=== PATIENT | female | born 1995 | race Caucasian/White ===

== ENCOUNTER 2018-01-07 16:10 | Emergency (ER) | payer MEDICAID, OTHER ==
[~2018-01-07] VITALS: Ht 165.1 cm; Wt 75.3 kg
[~2018-01-07 16:10] MED LIST: MEBE100T4 PO
--- OUTSIDE RECORDS SUMMARY | 2018-01-07 16:16 | XMS REPORT ---
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 54894609 Problem Allergic rhinitis, cause unspecified 477.9 Active 60628059 Problem Counseling on other sexually transmitted diseases V65.45 Active 956579111 Problem General counseling for prescription of oral contraceptives V25.01 Active 054601312549776 Problem examination or test, negative result V72.41 Active 642388682 Problem Moderate episode of recurrent major depressive disorder F33.1 Active 346318669 Problem Depression, reactive F32.9 Active 05643065 Problem Dysthymia F34.1 Active 14107706 Problem Panic attack F41.0 Active 882408695 Problem Anxiety F41.9 Active 69704898 Problem Post traumatic stress disorder (PTSD) F43.10 Active 41966861 ALLERGIES No Information ENCOUNTERS Encounter Location Date Diagnosis [place] [id number] [place] [address] Jul, Moderate episode of recurrent major depressive disorder F33.1 [facility] [id number] [place] [address] May, Moderate episode of recurrent major depressive disorder F33.1 [place] [address] [place] [address] Apr, Anxiety F41.9 ; Post traumatic stress disorder (PTSD) F43.10 ; Panic attack F41.0 ; Dysthymia F34.1 ; Night terrors F51.4 and Depression, reactive F32.9 [facility] [address] [facility] [id number] [address] Oct, [facility] [address], [place] [address] Oct, [facility] [address] [place] [address] Mar, [facility] [address] [address] Mar, [facility] [address] [address] Jan, [facility] [id number] [address] Jan, IMMUNIZATIONS No Known Immunizations SOCIAL HISTORY Never Assessed REASON FOR VISIT intake PLAN OF CARE Activity Details Follow Up Not rescheduled with me Reason:anxiety, depression, PTSD VITAL SIGNS MEDICATIONS No Known Medications RESULTS No Results PROCEDURES Procedure Date Ordered Result Body Site Psych diagnostic evaluation, new patient May 30, 2017 INSTRUCTIONS MEDICATIONS ADMINISTERED No Known Medications MEDICAL (GENERAL) HISTORY Type Description Date Medical History PTSD Medical History depression Medical History insomnia
--- OUTSIDE RECORDS SUMMARY | 2018-01-07 16:16 | XMS REPORT ---
Author Author EVETTE HORNE Organization Unknown Address [address] [address] Care Team Providers Care Fire Prevention Forester Name Role Phone EVETTE HORNE Unavailable Problems Problem SNOMED Onset Date Resolved Date Status Recurrent major depressive episodes, moderate 373085055 Active Posttraumatic stress disorder 96074263 Active Insomnia 614226591 Active Allergies, Adverse Reactions NA Care Plan Goal Instructions Child will be functioning well in all rangel. Further assessment by [facility] treatment team. Engage with treatment team to build rapport. Learn and practice coping skills to reduce symptoms and improve functioning. The following Services will be utilized 1 - 3 times until goal is reached: Child will be functioning well in all rangel. Further assessment by [facility] treatment team. Engage with treatment team to build rapport. Learn and practice coping skills to reduce symptoms and improve functioning. The following Services will be utilized 1 - 3 times until goal is reached: Improve and maintain functioning through medical psychiatric services. Initial Psychiatric Evaluation, Ongoing medication monitoring and management, Case Conference with multidisciplinary members of the [facility] as indicated, and/or Collaboration and coordination with outside medical providers as indicated by providing the following services: 80525 interactive complexity 79260 psychiatric diagnostic eval w/ meds 13196 30 min psychotherapy add-on 11048 45 [place] [address] 60 min psychotherapy add-on 77350 med injection 60845 New Patient E&M (level 1) 28540 New Patient E&M (level 2) 60468 New Patient E&M (level 3) 49791 New patient E&M (level 4) 04554 New Patient E&M (level 5) 91860 Established Patient E&M (level 1) 98516 Established Patient E&M (level 2) 69935 Established Patient E&M (level 3) 96797 Established Patient E& amp;M (level 4) 80745 Established Patient E&M (level 5) 9935x prolonged service code 85377 case conference w/o janis & aaron w/ 58903 case conference w/o janis lawson / H0038 Peer Support Individual H2017 Psychosocial Rehab Indiv Date Time Service Provider Location 05:00:00 pm INDIVIDUAL APPOINTMENT BRITTANY SANDOVAL [address] Medications Medication Code Dose,Form,Route,Freq Start Date End Date Rexulti - 1 MG ORAL Tablet 6425817 Take one (1) Tablet Daily Rexulti - 2 MG ORAL Tablet [id number] Take one (1) Tablet Daily Abilify - 5 MG ORAL Tablet 379263 Take one (1) Tablet At Bedtime Rexulti - 1 MG ORAL Tablet 8368347 Take two (2) Tablets Daily Rexulti - 2 MG ORAL Tablet 5468965 Take one (1) Tablet Daily Lab Results NA Encounters Date Time Service Code Provider 11:44:00 am EVETTE HORNE Family History Functional Status NA Immunizations NA Vital Signs Date Time BP Pulse Temp Height Weight BMI 05:56:00 pm 103 over 67 84 bpm 67 in 197 lbs 30.9 kg/m^2 Social History Date Smoking Status SNOMED Code Unknown If Ever Smoked [id number] Hospital Discharge Instructions NA Instructions * Not Applicable Procedures NA Purpose Electronic Copy
--- OUTSIDE RECORDS SUMMARY | 2018-01-07 16:16 | XMS REPORT ---
Author Author EVETTE SMALL Organization Unknown Address [address] [place] [address] Care Team Providers Care Ed Manager Name Role Phone EVETTE SMALL Unavailable SAMMY HUDSON Unavailable Problems Problem SNOMED Onset Date Resolved Date Status Recurrent major depressive episodes, moderate 300746887 Active Posttraumatic stress disorder 99425351 Active Insomnia 363271768 Active Review of medication 685920446 Active Body mass index 30+ - obesity 985696040 Active Allergies, Adverse Reactions NA Care Plan Date Time Service Provider Location 06:00:00 pm PSYCHOTHERAPY, 38-52 MINUTES SAMMY BECCA [address] 06:00:00 pm PSYCHOTHERAPY, 38-52 MINUTES SAMMY BECCA [address] 06:00:00 pm PSYCHOTHERAPY, 38-52 MINUTES SAMMY BECCA [address] 06:00:00 pm PSYCHOTHERAPY, 38-52 MINUTES SAMMY BECCA [address] 06:00:00 pm PSYCHOTHERAPY, 38-52 MINUTES SAMMY BECCA [address] 06:00:00 pm PSYCHOTHERAPY, 38-52 MINUTES SAMMY BECCA [address] 06:00:00 pm PSYCHOTHERAPY, 38-52 MINUTES SAMMY BECCA [address] 06:00:00 pm PSYCHOTHERAPY, 38-52 MINUTES SAMMY BECCA [address] 06:00:00 pm PSYCHOTHERAPY, 38-52 MINUTES SAMMY BECCA [address] 06:00:00 pm PSYCHOTHERAPY, 38-52 MINUTES SAMMY BECCA [address] 06:00:00 pm PSYCHOTHERAPY, 38-52 MINUTES SAMMY BECCA [address] 06:00:00 pm PSYCHOTHERAPY, 38-52 MINUTES SAMMY BECCA [address] 06:00:00 pm PSYCHOTHERAPY, 38-52 MINUTES SAMMY BECCA [address] 06:00:00 pm PSYCHOTHERAPY, 38-52 MINUTES SAMMY BECCA [address] 06:00:00 pm PSYCHOTHERAPY, 38-52 MINUTES SAMMY BECCA [address] 06:00:00 pm PSYCHOTHERAPY, 38-52 MINUTES SAMMY BECCA [address] 06:00:00 pm PSYCHOTHERAPY, 38-52 MINUTES SAMMY BECCA [address] 06:00:00 pm PSYCHOTHERAPY, 38-52 MINUTES SAMMY BECCA [address] 06:00:00 pm PSYCHOTHERAPY, 38-52 MINUTES SAMMY BECCA [address] 06:00:00 pm PSYCHOTHERAPY, 38-52 MINUTES SAMMY BECCA [address] 06:00:00 pm PSYCHOTHERAPY, 38-52 MINUTES SAMMY BECCA [address] 06:00:00 pm PSYCHOTHERAPY, 38-52 MINUTES SAMMY BECCA [address] 06:00:00 pm PSYCHOTHERAPY, 38-52 MINUTES SAMMY BECCA [address] 06:00:00 pm PSYCHOTHERAPY, 38-52 MINUTES SAMMY BECCA [address] 06:00:00 pm PSYCHOTHERAPY, 38-52 MINUTES SAMMY BECCA [address] 06:00:00 pm PSYCHOTHERAPY, 38-52 MINUTES SAMMY BECCA [address] 06:00:00 pm PSYCHOTHERAPY, 38-52 MINUTES SAMMY BECCA [address] 06:00:00 pm PSYCHOTHERAPY, 38-52 MINUTES SAMMY BECCA [address] 06:00:00 pm PSYCHOTHERAPY, 38-52 MINUTES SAMMY BECCA [address] 06:00:00 pm PSYCHOTHERAPY, 38-52 MINUTES SAMMY BECCA [address] 06:00:00 pm PSYCHOTHERAPY, 38-52 MINUTES SAMMY BECCA [address] 06:00:00 pm PSYCHOTHERAPY, 38-52 MINUTES SAMMY BECCA [address] 06:00:00 pm PSYCHOTHERAPY, 38-52 MINUTES SAMMY BECCA [address] 06:00:00 pm PSYCHOTHERAPY, 38-52 MINUTES SAMMY BECCA [address] 06:00:00 pm PSYCHOTHERAPY, 38-52 MINUTES SAMMY BECCA [address] 06:00:00 pm PSYCHOTHERAPY, 38-52 MINUTES SAMMY BECCA [address] 06:00:00 pm PSYCHOTHERAPY, 38-52 MINUTES SAMMY BECCA [address] 06:00:00 pm PSYCHOTHERAPY, 38-52 MINUTES SAMMY BECCA [address] 06:00:00 pm PSYCHOTHERAPY, 38-52 MINUTES SAMMY BECCA [address] 06:00:00 pm PSYCHOTHERAPY, 38-52 MINUTES SAMMY BECCA [address] 06:00:00 pm PSYCHOTHERAPY, 38-52 MINUTES SAMMY BECCA [address] 06:00:00 pm PSYCHOTHERAPY, 38-52 MINUTES SAMMY BECCA [address] 06:00:00 pm PSYCHOTHERAPY, 38-52 MINUTES SAMMY BECCA [address] 06:00:00 pm PSYCHOTHERAPY, 38-52 MINUTES SAMMY BECCA [address] 06:00:00 pm PSYCHOTHERAPY, 38-52 MINUTES SAMMY BECCA [address] 06:00:00 pm PSYCHOTHERAPY, 38-52 MINUTES SAMMY BECCA [address] 06:00:00 pm PSYCHOTHERAPY, 38-52 MINUTES SAMMY BECCA [address] 06:00:00 pm PSYCHOTHERAPY, 38-52 MINUTES SAMMY BECCA [address] 06:00:00 pm PSYCHOTHERAPY, 38-52 MINUTES SAMMY BECCA [address] 06:00:00 pm PSYCHOTHERAPY, 38-52 MINUTES SAMMY HUDSON [address] Medications Medication Code Dose,Form,Route,Freq Start Date End Date Rexulti - 1 MG ORAL Tablet [id number] Take one (1) Tablet Daily Rexulti - 2 MG ORAL Tablet 5281594 Take one (1) Tablet Daily Abilify - 5 MG ORAL Tablet [id number] Take one (1) Tablet At Bedtime Rexulti - 1 MG ORAL Tablet 6012861 Take two (2) Tablets Daily Rexulti - 2 MG ORAL Tablet [id number] Take one (1) Tablet Daily Citalopram - 20 MG ORAL Tablet [id number] Take one (1) Tablet Daily Citalopram - 20 MG ORAL Tablet [id number] Take one (1) Tablet Daily Citalopram - 20 MG ORAL Tablet [id number] Take one (1) Tablet Daily Citalopram - 20 MG ORAL Tablet [id number] Take one (1) Tablet Daily Lab Results NA Encounters Date Time Service Code Provider 11:44:00 am EVETTE HORNE % 11:03:00 am EVETTE HORNE % Family History Functional Status NA Immunizations NA Vital Signs Date Time BP Pulse Temp Height Weight BMI 04:15:00 pm 126 over 78 81 bpm 67 in 223.6 lbs 35 kg/m^2 06:17:00 pm 129 over 77 73 bpm 67 in 202 lbs 31.6 kg/m^2 05:15:00 pm 106 over 70 85 bpm 67 in 192.7 lbs 30.2 kg/m^2 05:56:00 pm 103 over 67 84 bpm 67 in 197 lbs 30.9 kg/m^2 Social History NA Hospital Discharge Instructions NA Instructions * Not Applicable Procedures NA Purpose Electronic Copy
--- OUTSIDE RECORDS SUMMARY | 2018-01-07 16:16 | XMS REPORT ---
Author Author EVETTE HORNE Organization Unknown Address [address] [address] Care Team Providers Care Moose Hunter Name Role Phone EVETTE HORNE Unavailable Problems Problem SNOMED Onset Date Resolved Date Status Recurrent major depressive episodes, moderate 227496718 Active Posttraumatic stress disorder 43403193 Active Insomnia 997561999 Active Allergies, Adverse Reactions NA Care Plan [...] Case Conference with multidisciplinary members of the [facility] team as indicated, and/or Collaboration and coordination with outside medical providers as indicated by providing the following services: 39771 interactive complexity 68052 psychiatric diagnostic eval w/ meds 98422 30 min psychotherapy add-on 49735 45 [place] [address] 60 min psychotherapy add-on 30537 med injection 59651 New Patient E&M (level 1) 66125 New Patient E&M (level 2) 20148 New Patient E&M (level 3) 24539 New patient E&M (level 4) 08370 New Patient E&M (level 5) 69040 Established Patient E&M (level 1) 55404 Established Patient E&M (level 2) 69740 Established Patient E&M (level 3) 83522 Established Patient E& amp;M (level 4) 40491 Established Patient E&M (level 5) 9935x prolonged service code 35413 case conference w/o janis & [place] [address] case conference w/o janis lawson / H0038 Peer Support Individual H2017 Psychosocial Rehab Indiv Improve and maintain functioning through medical psychiatric services. Initial Psychiatric Evaluation, Ongoing medication monitoring and management, Case Conference with multidisciplinary members of the [facility] team as indicated, and/or Collaboration and coordination with outside medical providers as indicated by providing the following services: 54577 interactive complexity 41699 psychiatric diagnostic eval w/ meds 04324 30 min psychotherapy add-on 55525 45 [place] [address] 60 min psychotherapy add-on 08417 med injection 85894 New Patient E&M (level 1) 75529 New Patient E&M (level 2) 35904 New Patient E&M (level 3) 31173 New patient E&M (level 4) 11496 New Patient E&M (level 5) 48385 Established Patient E&M (level 1) 91260 Established Patient E&M (level 2) 23613 Established Patient E&M (level 3) 68995 Established Patient E& amp;M (level 4) 86054 Established Patient E&M (level 5) 9935x prolonged service code 21193 case conference w/o janis & [place] [address] case conference w/o janis lawson / H0038 Peer Support Individual H2017 Psychosocial Rehab Indiv Medications Medication Code Dose,Form,Route,Freq Start Date End Date Rexulti - 1 MG ORAL Tablet [id number] Take one (1) Tablet Daily Rexulti - 2 MG ORAL Tablet 4392658 Take one (1) Tablet Daily Abilify - 5 MG ORAL Tablet 973072 Take one (1) Tablet At Bedtime Rexulti - 1 MG ORAL Tablet 4563349 Take two (2) Tablets Daily Rexulti - 2 MG ORAL Tablet [id number] Take one (1) Tablet Daily Citalopram - 20 MG ORAL Tablet [id number] Take one (1) Tablet Daily Lab Results NA Encounters Date Time Service Code Provider 11:44:00 am EVETTE HORNE Family History Functional Status NA Immunizations NA Vital Signs Date Time BP Pulse Temp Height Weight BMI 05:15:00 pm 106 over 70 85 bpm 67 in 192.7 lbs 30.2 kg/m^2 05:56:00 pm 103 over 67 84 bpm 67 in 197 lbs 30.9 kg/m^2 Social History Date Smoking Status SNOMED Code Unknown If Ever Smoked [id number] Hospital Discharge Instructions NA Instructions * Not Applicable Procedures NA Purpose Electronic Copy
--- OUTSIDE RECORDS SUMMARY | 2018-01-07 16:16 | XMS REPORT ---
Author Author EVETTE HORNE Organization Unknown Address [address] [address] Care Team Providers Care Frothing Machine Operator Name Role Phone EVETTE HORNE Unavailable Problems Problem SNOMED Onset Date Resolved Date Status N/A N/A N/A N/A N/A Allergies, Adverse Reactions NA Care Plan Goal [...] Case Conference with multidisciplinary members of the [facility] team as indicated, and/or Collaboration and coordination with outside medical providers as indicated by providing the following services: 17619 interactive complexity 92886 psychiatric diagnostic eval w/ meds 64004 30 min psychotherapy add-on 75862 45 [place] [address] 60 min psychotherapy add-on 53851 med injection 64478 New Patient E&M (level 1) 60695 New Patient E&M (level 2) 20741 New Patient E&M (level 3) 19013 New patient E&M (level 4) 08554 New Patient E&M (level 5) 39421 Established Patient E&M (level 1) 65193 Established Patient E&M (level 2) 47393 Established Patient E&M (level 3) 33239 Established Patient E& amp;M (level 4) 96079 Established Patient E&M (level 5) 9935x prolonged service code 27267 case conference w/o clt & fam w/ 79268 case conference w/o clt lulu / H0038 Peer Support Individual H2017 Psychosocial Rehab Indiv Date Time Service Provider Location 03:30:00 pm NEW PATIENT E&M LEVEL III MEGIA MAD[address] [place] Medications NA Lab Results NA Encounters Date Time Service Code Provider 11:44:00 am EVETTE HORNE 12:00:00 am PSYCHIATRIC DIAGNOSTIC EVALUATION 33767 EVETTE HORNE Family History Functional Status NA Immunizations NA Vital Signs NA Social History Date Smoking Status SNOMED Code Unknown If Ever Smoked [id number] Hospital Discharge Instructions NA Instructions * Not Applicable Procedures NA Purpose Electronic Copy
--- OUTSIDE RECORDS SUMMARY | 2018-01-07 16:16 | XMS REPORT ---
Author Author EVETTE HORNE Organization Unknown Address [address] [address] Care Team Providers Care Buyer Tobacco Head Name Role Phone EVETTE HORNE Unavailable Problems Problem SNOMED Onset Date Resolved Date Status Recurrent major depressive episodes, moderate 915367558 Active Posttraumatic stress disorder 52865035 Active Insomnia 897379091 Active Allergies, Adverse Reactions NA Care Plan [...] Case Conference with multidisciplinary members of the [facility] [place] team as indicated, and/or Collaboration and coordination with outside medical providers as indicated by providing the following services: 94787 interactive complexity 79710 psychiatric diagnostic eval w/ meds 92619 30 min psychotherapy add-on 09881 45 [place] [address] 60 min psychotherapy add-on 19183 med injection 65533 New Patient E&M (level 1) 01159 New Patient E&M (level 2) 54029 New Patient E&M (level 3) 29101 New patient E&M (level 4) 48277 New Patient E&M (level 5) 00063 Established Patient E&M (level 1) 70774 Established Patient E&M (level 2) 76366 Established Patient E&M (level 3) 71768 Established Patient E& amp;M (level 4) 17057 Established Patient E&M (level 5) 9935x prolonged service code 03564 case conference w/o janis & [place] [address] case conference w/o janis lawson / H0038 Peer Support Individual H2017 Psychosocial Rehab Indiv Improve and maintain functioning through medical psychiatric services. Initial Psychiatric Evaluation, Ongoing medication monitoring and management, Case Conference with multidisciplinary members of the [facility] team as indicated, and/or Collaboration and coordination with outside medical providers as indicated by providing the following services: 04760 interactive complexity 32331 psychiatric diagnostic eval w/ meds 89124 30 min psychotherapy add-on 13402 45 [place] [address] 60 min psychotherapy add-on 83193 med injection 84616 New Patient E&M (level 1) 65023 New Patient E&M (level 2) 07082 New Patient E&M (level 3) 37002 New patient E&M (level 4) 22201 New Patient E&M (level 5) 77818 Established Patient E&M (level 1) 28227 Established Patient E&M (level 2) 61886 Established Patient E&M (level 3) 85395 Established Patient E& amp;M (level 4) 26110 Established Patient E&M (level 5) 9935x prolonged service code 42514 case conference w/o janis & [place] [address] case conference w/o janis lawson / H0038 Peer Support Individual H2017 Psychosocial Rehab Indiv Medications Medication Code Dose,Form,Route,Freq Start Date End Date Rexulti - 1 MG ORAL Tablet [id number] Take one (1) Tablet Daily Rexulti - 2 MG ORAL Tablet 2379140 Take one (1) Tablet Daily Abilify - 5 MG ORAL Tablet 159797 Take one (1) Tablet At Bedtime Rexulti - 1 MG ORAL Tablet 6968393 Take two (2) Tablets Daily Rexulti - 2 MG ORAL Tablet 1250766 Take one (1) Tablet Daily Citalopram - 20 MG ORAL Tablet 761405 Take one (1) Tablet Daily Lab Results [...] Status SNOMED Code Unknown If Ever Smoked [id number] Hospital Discharge Instructions NA Instructions * Not Applicable Procedures NA Purpose Electronic Copy
--- OUTSIDE RECORDS SUMMARY | 2018-01-07 16:16 | XMS REPORT ---
Author Author EVETTE HORNE Organization Unknown Address [address] [address] Care Team Providers Care Photography Manager Name Role Phone HORNEEVETTE Unavailable Problems Problem SNOMED Onset Date Resolved Date Status Recurrent major depressive episodes, moderate Active Posttraumatic stress disorder 47377830 Active Insomnia 563588664 Active Allergies, Adverse Reactions NA Care Plan [...] as indicated by providing the following services: 61526 interactive complexity 02722 psychiatric diagnostic eval w/ meds 56658 30 min psychotherapy add-on 61412 45 [place] [address] 60 min psychotherapy add-on 97160 med injection 98342 New Patient E&M (level 1) 34823 New Patient E&M (level 2) 17472 New Patient E&M (level 3) 36853 New patient E&M (level 4) 18722 New Patient E&M (level 5) 06138 Established Patient E&M (level 1) 75438 Established Patient E&M (level 2) 70376 Established Patient E&M (level 3) 38406 Established Patient E& amp;M (level 4) 06571 Established Patient E&M (level 5) 9935x prolonged service code 71853 case conference w/o janis & aaron w/ 57883 case conference w/o janis lawson / H0038 Peer Support Individual H2017 Psychosocial Rehab Indiv Medications Medication Code Dose,Form,Route,Freq Start Date End Date Rexulti - 1 MG ORAL Tablet 6493388 Take one (1) Tablet Daily Rexulti - 2 MG ORAL Tablet 3335519 Take one (1) Tablet Daily Abilify - 5 MG ORAL Tablet 490670 Take one (1) Tablet At Bedtime Lab Results NA Encounters Date Time Service Code Provider 11:44:00 am EVETTE HORNE Family History Functional Status NA Immunizations NA Vital Signs Date Time BP Pulse Temp Height Weight BMI 05:56:00 pm 103 over 67 84 bpm 67 in 197 lbs 30.9 kg/m^2 Social History Date Smoking Status SNOMED Code Unknown If Ever Smoked [id number] Hospital Discharge Instructions NA Instructions * Not Applicable Procedures NA Purpose Electronic Copy
--- OUTSIDE RECORDS SUMMARY | 2018-01-07 16:16 | XMS REPORT ---
Author Author EVETTE HORNE Organization Unknown Address [address] [place] [id number] Care Team Providers Care Development Lead Name Role Phone EVETTE HORNE Unavailable BECCASAMMY MAGANA Unavailable Problems Problem SNOMED Onset Date Resolved Date Status Recurrent major depressive episodes, moderate [id number] Active Posttraumatic stress disorder [id number] Active Insomnia [id number] Active Review of medication 812641448 Active Allergies, Adverse Reactions NA Care Plan [...] as indicated by providing the following services: 85013 interactive complexity 31446 psychiatric diagnostic eval w/ meds 06536 30 min psychotherapy add-on 95441 45 [place] [address] 60 min psychotherapy add-on 09211 med injection 56244 New Patient E&M (level 1) 24470 New Patient E&M (level 2) 99214 New Patient E&M (level 3) 51075 New patient E&M (level 4) 40984 New Patient E&M (level 5) 26637 Established Patient E&M (level 1) 55516 Established Patient E&M (level 2) 75562 Established Patient E&M (level 3) 78448 Established Patient E& amp;M (level 4) 27455 Established Patient E&M (level 5) 9935x prolonged service code 33915 case conference w/o janis & aaron lawson/ 43541 case conference w/o janis lawson / [id number] Peer Support Individual H2017 Psychosocial Rehab Indiv Improve and maintain functioning through medical psychiatric services. Initial Psychiatric Evaluation, Ongoing medication monitoring and management, Case Conference with multidisciplinary members of the [facility] team as indicated, and/or Collaboration and coordination with outside medical providers as indicated by providing the following services: 06113 interactive complexity 34069 psychiatric diagnostic eval w/ meds 56401 30 min psychotherapy add-on 68781 45 [place] [address] 60 min psychotherapy add-on 85417 med injection 14890 New Patient E&M (level 1) 39333 New Patient E&M (level 2) 37431 New Patient E&M (level 3) 18049 New patient E&M (level 4) 54894 New Patient E&M (level 5) 43956 Established Patient E&M (level 1) 80038 Established Patient E&M (level 2) 19239 Established Patient E&M (level 3) 03659 Established Patient E& amp;M (level 4) 33207 Established Patient E&M (level 5) 9935x prolonged service code 54787 case conference w/[place] [address] case conference w/o janis lawson / [id number] Peer Support Individual H2017 Psychosocial Rehab Indiv Improve and maintain functioning through medical psychiatric services. Initial Psychiatric Evaluation, Ongoing medication monitoring and management, Case Conference with multidisciplinary members of the [facility] team as indicated, and/or Collaboration and coordination with outside medical providers as indicated by providing the following services: 13165 interactive complexity 45765 psychiatric diagnostic eval w/ meds 62361 30 min psychotherapy add-on 00367 45 [place] [address] 60 min psychotherapy add-on 82496 med injection 88505 New Patient E&M (level 1) 13381 New Patient E&M (level 2) 44111 New Patient E&M (level 3) 32536 New patient E&M (level 4) 85152 New Patient E&M (level 5) 05030 Established Patient E&M (level 1) 67103 Established Patient E&M (level 2) 46861 Established Patient E&M (level 3) 84808 Established Patient E& amp;M (level 4) 52443 Established Patient E&M (level 5) 9935x prolonged service code 12237 case conference w/o clt & fam w/ [place] [address] case conference w/o clt w / [id number] Peer Support Individual H2017 Psychosocial Rehab Indiv Client will get engaged with therapist and develop treatment goals. Providers will meet with Clt. to build rapport, develop treatment goals, and teach client coping skills to decrease symptoms. Date Time Service Provider Location 06:00:00 pm [...] RD 06:00:00 pm PSYCHOTHERAPY, 38-52 MINUTES SAMMY HUDSON [address] Medications Medication Code Dose,Form,Route,Freq Start Date End Date Rexulti - 1 MG ORAL Tablet [id number] Take one (1) Tablet Daily Rexulti - 2 MG ORAL Tablet 2582012 Take one (1) Tablet Daily Abilify - 5 MG ORAL Tablet 113234 Take one (1) Tablet At Bedtime Rexulti - 1 MG ORAL Tablet 6351145 Take two (2) Tablets Daily Rexulti - 2 MG ORAL Tablet 8818811 Take one (1) Tablet Daily Citalopram - 20 MG ORAL Tablet [id number] Take one (1) Tablet Daily Citalopram - 20 MG ORAL Tablet 20030128 Take one (1) Tablet Daily Lab Results NA Encounters Date Time Service Code Provider 11:44:00 am EVETTE HORNE 11:03:00 am EVETTE HORNE Family History Functional Status NA Immunizations NA Vital Signs Date Time BP Pulse Temp Height Weight BMI 06:17:00 pm 129 over 77 73 bpm 67 in 202 lbs 31.6 kg/m^2 05:15:00 pm 106 over 70 85 bpm 67 in 192.7 lbs 30.2 kg/m^2 05:56:00 pm 103 over 67 84 bpm 67 in 197 lbs 30.9 kg/m^2 Social History Date Smoking Status SNOMED Code Unknown If Ever Smoked [id number] Hospital Discharge Instructions NA Instructions * Not Applicable Procedures NA Purpose Electronic Copy
--- OUTSIDE RECORDS SUMMARY | 2018-01-07 16:16 | XMS REPORT ---
Author Author EVETTE HORNE Organization Unknown Address [address] [address] Care Team Providers Care Cw Operator Name Role Phone EVETTE HORNE Unavailable Problems Problem SNOMED Onset Date Resolved Date Status Recurrent major depressive episodes, moderate [id number] Active Posttraumatic stress disorder 28667475 Active Insomnia 267632148 Active Allergies, Adverse Reactions NA Care Plan [...] Case Conference with multidisciplinary members of the [facility] team as indicated, and/or Collaboration and coordination with outside medical providers as indicated by providing the following services: 98000 interactive complexity 81659 psychiatric diagnostic eval w/ meds 82533 30 min psychotherapy add-on 89727 45 [place] [address] 60 min psychotherapy add-on 20173 med injection 30296 New Patient E&M (level 1) 09248 New Patient E&M (level 2) 91493 New Patient E&M (level 3) 61671 New patient E&M (level 4) 20685 New Patient E&M (level 5) 90148 Established Patient E&M (level 1) 71464 Established Patient E&M (level 2) 27744 Established Patient E&M (level 3) 62235 Established Patient E& amp;M (level 4) 02197 Established Patient E&M (level 5) 9935x prolonged service code 55998 case conference w/o janis & aaron w/ 90282 case conference w/o janis lawson / [id number] Peer Support Individual H2017 Psychosocial Rehab Indiv Date Time Service Provider Location 05:00:00 pm INDIVIDUAL APPOINTMENT BRITTANY SANDOVAL [address] Medications Medication Code Dose,Form,Route,Freq Start Date End Date Rexulti - 1 MG ORAL Tablet [id number] Take one (1) Tablet Daily Rexulti - 2 MG ORAL Tablet 0960047 Take one (1) Tablet Daily Abilify - 5 MG ORAL Tablet 677810 Take one (1) Tablet At Bedtime Rexulti - 1 MG ORAL Tablet 9743008 Take two (2) Tablets Daily Rexulti - 2 MG ORAL Tablet 6921598 Take one (1) Tablet Daily Lab Results NA Encounters Date Time Service Code Provider 11:44:00 am EVETTE HORNE Family History Functional Status NA Immunizations NA Vital Signs Date Time BP Pulse Temp Height Weight BMI 05:56:00 pm 103 over 67 84 bpm 67 in 197 lbs 30.9 kg/m^2 Social History Date Smoking Status SNOMED Code Unknown If Ever Smoked [id number] Hospital Discharge Instructions NA Instructions * Not Applicable Procedures NA Purpose Electronic Copy
--- OUTSIDE RECORDS SUMMARY | 2018-01-07 16:17 | XMS REPORT ---
Author Author EVETTE HORNE Organization Unknown Address [address] [address] Care Team Providers Care Pbx Repairer Name Role Phone EVETTE HORNE Unavailable Problems Problem SNOMED Onset Date Resolved Date Status Recurrent major depressive episodes, moderate 632417873 Active Posttraumatic stress disorder 50177451 Active Insomnia 863292455 Active Allergies, Adverse Reactions NA Care Plan [...] Conference with multidisciplinary members of the [facility] team as indicated, and/or Collaboration and coordination with outside medical providers as indicated by providing the following services: 31528 interactive complexity 78592 psychiatric diagnostic eval w/ meds 31577 30 min psychotherapy add-on 56309 45 [place] [address] 60 min psychotherapy add-on 62017 med injection 02671 New Patient E&M (level 1) 60619 New Patient E&M (level 2) 56100 New Patient E&M (level 3) 65489 New patient E&M (level 4) 63626 New Patient E&M (level 5) 04214 Established Patient E&M (level 1) 02351 Established Patient E&M (level 2) 17136 Established Patient E&M (level 3) 21900 Established Patient E& amp;M (level 4) 71759 Established Patient E&M (level 5) 9935x prolonged service code 80920 case conference w/o janis & [place] [address] case conference w/o janis lawson / [id number] Peer Support Individual H2017 Psychosocial Rehab Indiv Improve and maintain functioning through medical psychiatric services. Initial Psychiatric Evaluation, Ongoing medication monitoring and management, Case Conference with multidisciplinary members of the [facility] team as indicated, and/or Collaboration and coordination with outside medical providers as indicated by providing the following services: 68666 interactive complexity 22409 psychiatric diagnostic eval w/ meds 87099 30 min psychotherapy add-on 83300 45 [place] [address] 60 min psychotherapy add-on 50765 med injection 51591 New Patient E&M (level 1) 51205 New Patient E&M (level 2) 62800 New Patient E&M (level 3) 45797 New patient E&M (level 4) 96995 New Patient E&M (level 5) 52300 Established Patient E&M (level 1) 68014 Established Patient E&M (level 2) 23486 Established Patient E&M (level 3) 75699 Established Patient E& amp;M (level 4) 50971 Established Patient E&M (level 5) 9935x prolonged service code 69923 case conference w/o janis & [place] [address] case conference w/o janis lawson / [id number] Peer Support Individual H2017 Psychosocial Rehab Indiv Medications Medication Code Dose,Form,Route,Freq Start Date End Date Rexulti - 1 MG ORAL Tablet [id number] Take one (1) Tablet Daily Rexulti - 2 MG ORAL Tablet 0893696 Take one (1) Tablet Daily Abilify - 5 MG ORAL Tablet 897735 Take one (1) Tablet At Bedtime Rexulti - 1 MG ORAL Tablet 7957420 Take two (2) Tablets Daily Rexulti - 2 MG ORAL Tablet 4821312 Take one (1) Tablet Daily Citalopram - 20 MG ORAL Tablet 387575 Take one (1) Tablet Daily Lab Results [...] Status SNOMED Code Unknown If Ever Smoked [id number] Hospital Discharge Instructions NA Instructions * Not Applicable Procedures NA Purpose Electronic Copy
--- OUTSIDE RECORDS SUMMARY | 2018-01-07 16:17 | XMS REPORT ---
Author Author EVETTE HORNE Organization Unknown Address [address] [address] Care Team Providers Care Cherry Pitter Name Role Phone EVETTE HORNE Unavailable Problems [...] as indicated by providing the following services: 70917 interactive complexity 28678 psychiatric diagnostic eval w/ meds 47607 30 min psychotherapy add-on 88338 45 [place] [address] 60 min psychotherapy add-on 46512 med injection 28927 New Patient E&M (level 1) 30988 New Patient E&M (level 2) 08190 New Patient E&M (level 3) 50364 New patient E&M (level 4) 11058 New Patient E&M (level 5) 69218 Established Patient E&M (level 1) 44801 Established Patient E&M (level 2) 82176 Established Patient E&M (level 3) 85356 Established Patient E& amp;M (level 4) 01437 Established Patient E&M (level 5) 9935x prolonged service code 67859 case conference w/o clt & fam w/ 60344 case conference w/o clt lulu / [id number] Peer Support Individual H2017 Psychosocial Rehab Indiv Date Time Service Provider Location 05:30:00 pm INDIVIDUAL APPOINTMENT BRITTANY SANDOVAL [address] Medications NA Lab Results NA Encounters Date Time Service Code Provider 11:44:00 am EVETTE HORNE Family History Functional Status NA Immunizations NA Vital Signs NA Social History Date Smoking Status SNOMED Code Unknown If Ever Smoked [id number] Hospital Discharge Instructions NA Instructions * Not Applicable Procedures NA Purpose Electronic Copy
--- OUTSIDE RECORDS SUMMARY | 2018-01-07 16:17 | XMS REPORT ---
Author Author EVETTE HORNE Organization Unknown Address [address] [address] Care Team Providers Care Pharmacy Technician Per Diem Name Role Phone EVETTE HORNE Unavailable Problems Problem SNOMED Onset Date Resolved Date Status Recurrent major depressive episodes, moderate [id number] Active Posttraumatic stress disorder 50169372 Active Insomnia 837963545 Active Allergies, Adverse Reactions NA Care Plan [...] Case Conference with multidisciplinary members of the [facility] team as indicated, and/or Collaboration and coordination with outside medical providers as indicated by providing the following services: 89425 interactive complexity 50265 psychiatric diagnostic eval w/ meds 94187 30 min psychotherapy add-on 84293 45 [place] [address] 60 min psychotherapy add-on 53384 med injection 64749 New Patient E&M (level 1) 99092 New Patient E&M (level 2) 38397 New Patient E&M (level 3) 73389 New patient E&M (level 4) 36217 New Patient E&M (level 5) 09546 Established Patient E&M (level 1) 61365 Established Patient E&M (level 2) 16541 Established Patient E&M (level 3) 41185 Established Patient E& amp;M (level 4) 34341 Established Patient E&M (level 5) 9935x prolonged service code 59348 case conference w/o janis & aaron lawson/ 77264 case conference w/o janis lawson / [id number] Peer Support Individual H2017 Psychosocial Rehab Indiv Improve and maintain functioning through medical psychiatric services. Initial Psychiatric Evaluation, Ongoing medication monitoring and management, Case Conference with multidisciplinary members of the [facility] team as indicated, and/or Collaboration and coordination with outside medical providers as indicated by providing the following services: 37540 interactive complexity 43316 psychiatric diagnostic eval w/ meds 55854 30 min psychotherapy add-on 33446 45 [place] [address] 60 min psychotherapy add-on 62342 med injection 88274 New Patient E&M (level 1) 14688 New Patient E&M (level 2) 89706 New Patient E&M (level 3) 72519 New patient E&M (level 4) 75821 New Patient E&M (level 5) 66104 Established Patient E&M (level 1) 32145 Established Patient E&M (level 2) 58499 Established Patient E&M (level 3) 68566 Established Patient E& amp;M (level 4) 24775 Established Patient E&M (level 5) 9935x prolonged service code 81261 case conference w/o janis & [place] [address] case conference w/o janis lawson / [id number] Peer Support Individual H2017 Psychosocial Rehab Indiv Date Time Service Provider Location 05:00:00 pm INDIVIDUAL APPOINTMENT BRITTANY SANDOVAL [address] Medications Medication Code Dose,Form,Route,Freq Start Date End Date Rexulti - 1 MG ORAL Tablet [id number] Take one (1) Tablet Daily Rexulti - 2 MG ORAL Tablet 0855280 Take one (1) Tablet Daily Abilify - 5 MG ORAL Tablet 021840 Take one (1) Tablet At Bedtime Rexulti - 1 MG ORAL Tablet 4537396 Take two (2) Tablets Daily Rexulti - 2 MG ORAL Tablet 8704180 Take one (1) Tablet Daily Lab Results NA Encounters Date Time Service Code Provider 11:44:00 am EVETTE HORNE Family History Functional Status NA Immunizations NA Vital Signs Date Time BP Pulse Temp Height Weight BMI 05:56:00 pm 103 over 67 84 bpm 67 in 197 lbs 30.9 kg/m^2 Social History Date Smoking Status SNOMED Code Unknown If Ever Smoked [id number] Hospital Discharge Instructions NA Instructions * Not Applicable Procedures NA Purpose Electronic Copy
[2018-01-07] MEDS ORDERED: CITA20TA9 (16:38)
[2018-01-07] MEDS ORDERED: HYDR-700 (16:38)
[2018-01-07] MEDS ORDERED: TRAZ-28 (16:38)
[2018-01-07 17:00] LABS: BILIRUBIN,URINE NEGATIVE (NEGATIVE); CLARITY,URINE VERY CLOUDY; COLOR,URINE YELLOW; GLUCOSE, URINE (UA) NEGATIVE (NEGATIVE); KETONES,URINE NEGATIVE (NEGATIVE); LEUKOCYTE ESTERASE ,URINE 3+ (NEGATIVE); NITRITE,URINE NEGATIVE (NEGATIVE); PH,URINE 7 (5-9); PROTEIN,URINE NEGATIVE (NEGATIVE); UROBILINOGEN,URINE NORMAL (NORMAL)
[2018-01-07 17:14] LABS: AMORPHOUS SEDIMENT,UR LARGE AMOR URATES /LPF; BACTERIA,URINE NEGATIVE /HPF; RBC,URINE RARE /HPF; WBC,URINE 0-2 /HPF
[2018-01-07] MEDS ORDERED: HYDR30SU3 RC (17:34)
--- NOTE | 2018-01-07 17:34 | ED GU-Female ---
General Chief Complaint: Rect Problems Stated Complaint: RECTAL BLEEDING Nursing Triage Note: Pt reports rectal bleed issues intermittantly from exposure to anal intercourse 1 yr ago. No current reported injury and denies any f/u from last yr. Nursing Sepsis Screen: No Definite Risk History of Present Illness Date Seen by Provider: Jan 07, 2018 Time Seen by Provider: 17:10 Initial Comments 22-year-old female reports one year ago having anal intercourse, since then she has been having intermittent bleeding after bowel movements. She has tried suppositories little improvement in her symptoms. Today the pain was significant after she had a large bowel movement. Timing/Duration: getting worse Severity/Quality: dull, sharp Location: other Allergies and Home Medications Allergies Coded Allergies: No Known Drug Allergies (Unverified , 03/15/09) Home Medications Hydrocortisone Acetate 30 Mg Supp.rect, 30 MG RC Q6H PRN for PAIN-MILD Prescribed by: MATILDE KASPER on 01/07/18 0059 Patient Home Medication List Home Medication List Reviewed: Yes Review of Systems Constitutional: no symptoms reported, see HPI Genitourinary: see HPI, other (rectal pain and bleeding) All Other Systemes Reviewed Negative Unless Noted: Yes Past Txturlz-Nvyfsu-Whxvwh Hx Past Med/Social Hx: Reviewed Nursing Past Med/Soc Hx Patient Social History Alcohol Use: Rarely Uses Recreational Drug Use: No Smoking Status: Current Everyday Smoker Type Used: Cigarettes 2nd Hand Smoke Exposure: No Recent Foreign Travel: No Contact w/Someone Who Travel: No Recent Infectious Disease Expo: No Recent Hopitalizations: No Seasonal Allergies Seasonal Allergies: No Past Medical History Surgeries: No Respiratory: No Cardiac: No Neurological: No Genitourinary: No Gastrointestinal: No Musculoskeletal: No Endocrine: No HEENT: No Cancer: No Psychosocial: Yes Sleep Difficulties, Anxiety, Depression Integumentary: No Blood Disorders: No Adverse Reaction/Blood Tranf: No Physical Exam Vital Signs Vital Signs - First Documented 01/07/18 16:20 Temp 97.2 Pulse 93 Resp 20 B/P (MAP) 125/82 (96) Pulse Ox 98 O2 Delivery Room Air Capillary Refill : Less Than 3 Seconds General Appearance: WD/WN, no apparent distress Cardiovascular: normal peripheral pulses, regular rate, rhythm Respiratory: chest non-tender, lungs clear, normal breath sounds Gastrointestinal: normal bowel sounds, non tender, soft Rectal: normal exam, normal rectal tone, hemorrhoids (external on the left, internal hemorrhoids inflamed and tender. No fissures or active bleeding noted) Neurologic/Psychiatric: no motor/sensory deficits, alert, normal mood/affect, oriented x 3 Progress/Results/Core Measures Suspected Sepsis Recent Fever Within 48 Hours: No Infection Criteria Present: None New/Unexplained Altered Menta: No Sepsis Screen: No Definite Risk SIRS Temperature:97.2 Pulse: 93 Respiratory Rate: 20 Blood Pressure 125 /82 Mean: 96 Results/Orders Lab Results Laboratory Tests Test 01/07/18 16:49 Range/Units Urine Color YELLOW Urine Clarity VERY CLOUDY H Urine pH 7 5-9 Urine Specific [place] 1.010 L 1.016-1.022 Urine Protein NEGATIVE NEGATIVE Urine Glucose (UA) NEGATIVE NEGATIVE Urine Ketones NEGATIVE NEGATIVE Urine Nitrite NEGATIVE NEGATIVE Urine Bilirubin NEGATIVE NEGATIVE Urine Urobilinogen NORMAL NORMAL MG/DL Urine Leukocyte Esterase 3+ H NEGATIVE Urine RBC (Auto) 3+ H NEGATIVE Urine RBC RARE /HPF Urine WBC 0-2 /HPF Urine Squamous Epithelial Cells 10-25 H /HPF Urine Renal Epithelial Cells NONE /HPF Urine Crystals PRESENT H /LPF Urine Amorphous Sediment LARGE DAMON URATES H /LPF Urine Bacteria NEGATIVE /HPF Urine Casts NONE /LPF Urine Mucus NEGATIVE /LPF Urine Culture Indicated NO My Orders Orders - MATILDE KASPER Urine Bedside (01/07/18 16:54) Ua Culture If Indicated (01/07/18 16:54) Urine Bedside (01/07/18 16:55) Vital Signs/I&O 01/07/18 01/07/18 16:20 17:40 Temp 97.2 97.2 Pulse 93 93 Resp 20 20 B/P (MAP) 125/82 (96) 125/82 (96) Pulse Ox 98 98 O2 Delivery Room Air Capillary Refill : Less Than 3 Seconds Blood Pressure Mean: 96 Point of Care Testing Urine -Bedside: Negative Departure Impression Primary Impression: Hemorrhoids Qualified Codes: K64.1 - Second degree hemorrhoids Additional Impression: Rectal bleeding Disposition: 01 HOME, SELF-CARE Condition: Stable Departure-Patient Inst. Decision time for Depature: 17:30 Referrals: JACKIE CAMARENA DO (PCP/Family) Primary Care Physician Patient Instructions: Hemorrhoids (DC) Add. Discharge Instructions: Take an ehnw-[id number] daily stool softener, Docusate Sodium 100 mg twice daily. Warm sitz baths. Avoid anything being inserted in Rectum. Use Steroid Suppositories as directed. Follow-up with Dr. Camarena if symptoms are not improving or worsen to consider referral to general surgery for further treatment of the hemorrhoids Return to emergency department for new urgent health care needs. All discharge instructions reviewed with patient and/or family. Voiced understanding. Scripts Hydrocortisone Acetate (Hydrocortisone Acetate) 30 Mg Supp.rect 30 MG RC Q6H PRN for PAIN-MILD, #15 SUPP.RECT 0 Refills Prov: MATILDE KASPER 01/07/18 Copy Copies To 1: JACKIE CAMARENA DO MATILDE KASPER Jan 07, 2018 17:34
[2018-01-07 17:40] VITALS: BP 125/82
== END 2018-01-07 17:40 | disposition home or self-care (01) ==
LOC: EDUNIT# 16:10 → ER 16:12
DX: K64.9 Unspecified hemorrhoids (principal); F41.9 Anxiety disorder, unspecified; F32.9 Major depressive disorder, single episode, unspecified; G47.9 Sleep disorder, unspecified; F17.210 Nicotine dependence, cigarettes, uncomplicated
CPT/HCPCS: 81000; 84703; 99282

== ENCOUNTER 2018-04-04 03:16 | Emergency (ER) | payer MEDICAID ==
[~2018-04-04] VITALS: Ht 172.7 cm; Wt 95.3 kg
[~2018-04-04 03:16] MED LIST changes: +CITA20TA9; +HYDR-700; +HYDR30SU3 RC; +TRAZ-189
[2018-04-04 03:43] LABS: BILIRUBIN,URINE NEGATIVE (NEGATIVE); CLARITY,URINE SLIGHTLY CLOUDY; COLOR,URINE AMBER; GLUCOSE, URINE (UA) NEGATIVE (NEGATIVE); KETONES,URINE 1+ (NEGATIVE); LEUKOCYTE ESTERASE ,URINE 2+ (NEGATIVE); NITRITE,URINE NEGATIVE (NEGATIVE); PH,URINE 5 (5-9); PROTEIN,URINE 2+ (NEGATIVE); UROBILINOGEN,URINE 1 MG/DL (NORMAL)
--- NOTE | 2018-04-04 03:52 | ED GU-Female ---
General Chief Complaint: Abdominal/GI Problems Stated Complaint: PELVIC PAIN Nursing Triage Note: LOWER ABDOMINAL PAIN Nursing Sepsis Screen: No Definite Risk Source: patient, old records Exam Limitations: no limitations History of Present Illness Date Seen by Provider: Apr 04, 2018 Time Seen by Provider: 03:18 Initial Comments This 22-year-old young lady presents to the emergency room with complaints of pelvic pain starting at 02:00. It woke her from sleep. She reports recurrent episodes of this type of pain, the last episode being about 6 months ago. She has had ultrasound imaging performed previously at [facility]. She reports it was unremarkable. She just started her menstrual cycle yesterday morning. She denies any vaginal symptoms such as discharge. She denies any urinary changes. Allergies and Home Medications Allergies Coded Allergies: No Known Drug Allergies (Unverified , 03/15/09) Home Medications Cephalexin 500 Mg Capsule, 500 MG PO QID Prescribed by: CIPRIANO VEGA on 04/04/18 0403 Phenazopyridine HCl 200 Mg Tablet, 1 TAB PO TID PRN for PAIN-MODERATE TO SEVERE Prescribed by: CIPRIANO VEGA on 04/04/18 0403 Patient Home Medication List Home Medication List Reviewed: Yes Review of Systems Review of Systems Constitutional: no symptoms reported EENTM: no symptoms reported Respiratory: no symptoms reported Cardiovascular: no symptoms reported Gastrointestinal: no symptoms reported Genitourinary: see HPI : No LMP: Apr 03, 2018 Musculoskeletal: no symptoms reported Skin: no symptoms reported Psychiatric/Neurological: No Symptoms Reported Endocrine: No Symptoms Reported Past Fzpanye-Rnpzig-Hibjnf Hx Patient Social History Alcohol Use: Denies Use Recreational Drug Use: No Smoking Status: Current Everyday Smoker Type Used: Cigarettes 2nd Hand Smoke Exposure: No Recent Foreign Travel: No Contact w/Someone Who Travel: No Recent Infectious Disease Expo: No Recent Hopitalizations: No Immunizations Up To Date Tetanus Booster (TDap): Unknown Seasonal Allergies Seasonal Allergies: No Past Medical History Surgeries: No Respiratory: No Cardiac: No Neurological: No : No Last Menstrual Period: Apr 03, 2018 Genitourinary: No Gastrointestinal: No Musculoskeletal: No Endocrine: No HEENT: No Cancer: No Psychosocial: Yes Sleep Difficulties, Anxiety, PTSD, Depression Integumentary: No Blood Disorders: No Adverse Reaction/Blood Tranf: No Physical Exam Vital Signs Vital Signs - First Documented 04/04/18 03:32 Temp 96.9 Pulse 72 Resp 18 B/P (MAP) 141/102 (115) Pulse Ox 100 O2 Delivery Room Air Capillary Refill : Less Than 3 Seconds Height, Weight, BMI Height: 5'8.00" Weight: 210lbs. oz. 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, no motor/sensory deficits, alert, normal mood/affect, oriented x 3 Skin: normal color, warm/dry Progress/Results/Core Measures Suspected Sepsis Recent Fever Within 48 Hours: No Infection Criteria Present: None New/Unexplained Altered Menta: No Sepsis Screen: No Definite Risk SIRS Temperature:96.9 Pulse: 72 Respiratory Rate: 18 Blood Pressure 141 /102 Mean: 115 Results/Orders Lab Results Laboratory Tests Test 04/04/18 03:30 Range/Units Urine Color HERB H Urine Clarity SLIGHTLY CLOUDY Urine pH 5 5-9 Urine Specific [place] 1.030 H 1.016-1.022 Urine Protein 2+ H NEGATIVE Urine Glucose (UA) NEGATIVE NEGATIVE Urine Ketones 1+ H NEGATIVE Urine Nitrite NEGATIVE NEGATIVE Urine Bilirubin NEGATIVE NEGATIVE Urine Urobilinogen 1 NORMAL MG/DL Urine Leukocyte Esterase 2+ H NEGATIVE Urine RBC (Auto) 5+ H NEGATIVE Urine RBC >100 H /HPF Urine WBC 25-50 H /HPF Urine Squamous Epithelial Cells 2-5 /HPF Urine Crystals NONE /LPF Urine Bacteria MODERATE H /HPF Urine Casts NONE /LPF Urine Mucus NEGATIVE /LPF Urine Culture Indicated YES My Orders Orders - CIPRIANO CARUSO MD Ua Culture If Indicated (04/04/18 03:20) Urine Bedside (04/04/18 03:30) Urine Culture (04/04/18 03:30) Phenazopyridine Tablet (Pyridium Tablet) (04/04/18 04:00) Cephalexin Capsule (Keflex Capsule) (04/04/18 04:00) Vital Signs/I&O 04/04/18 03:32 Temp 96.9 Pulse 72 Resp 18 B/P (MAP) 141/102 (115) Pulse Ox 100 O2 Delivery Room Air Capillary Refill : Less Than 3 Seconds Blood Pressure Mean: 115 Point of Care Testing Urine -Bedside: Negative Progress Note : Progress Note Patient was found to have significant urinary tract infection by urinalysis. Treatment was started with Keflex and Pyridium. Departure Impression Primary Impression: Urinary tract infection Qualified Codes: N39.0 - Urinary tract infection, site not specified; R31.9 - Hematuria, unspecified Additional Impression: Pelvic pain Disposition: HOME, SELF-CARE Condition: Improved Departure-Patient Inst. Decision time for Depature: 04:01 Referrals: JACKIE CAMARENA DO (PCP/Family) Primary Care Physician Patient Instructions: Urinary Tract Infection, Adult (DC) Add. Discharge Instructions: Drink plenty of clear liquids. Follow-up with Dr. Camarena's office on Monday to review urine culture results. You may take ibuprofen up to 6 or milligrams every 6 hours as needed for pain. You may also take Tylenol (acetaminophen) up to 1000 mg every 6 hours as needed for additional pain relief. Return to the emergency room if you have worsening symptoms. Peridium has been prescribed for bladder pain. Please be advised this medication can turn your urine a red or orange color. All discharge instructions reviewed with patient and/or family. Voiced understanding. Scripts Phenazopyridine HCl (Pyridium) 200 Mg Tablet 1 TAB PO TID PRN for PAIN-MODERATE TO SEVERE, #10 TAB Prov: CIPRIANO CARUSO MD 04/04/18 Cephalexin (Keflex) 500 Mg Capsule 500 MG PO QID, #28 CAP Prov: CIPRIANO CARUSO MD 04/04/18 Copy Copies To 1: JACKIE CAMARENA JOSHUA T MD Apr 04, 2018 03:52
[2018-04-04 03:53] LABS: BACTERIA,URINE MODERATE /HPF; RBC,URINE >100 /HPF; WBC,URINE 25-50 /HPF
[2018-04-04] MEDS ORDERED: CEPHALEXIN 250 MG (KEFLEX) CAP PO ONE (04:00)
[2018-04-04] MEDS ORDERED: PHENAZOPYRIDINE 100 MG (PYRIDIUM) TABLET PO ONE (04:00)
[2018-04-04] MEDS ORDERED: PHEN-640 PO (04:03)
[2018-04-04] MEDS ORDERED: CEPH-507 PO (04:03)
[2018-04-04 04:10] VITALS: BP 141/102
--- OUTSIDE RECORDS SUMMARY | 2018-04-04 05:25 | XMS REPORT | Clinical Summary ---
Author Author Admin, ERICH Organization [facility] Address Unknown Phone Unavailable Allergies, Adverse Reactions, Alerts Allergy Name Reaction Description Start Date Severity Status Provider No Known Allergies STEPHANIA Eller Conditions or Problems Problem Name Problem Code Onset Date Status Entry Date Provider Comment Standard Description Annotate Irregular menses 626.4 Active Abram Bailey MD Irregular menstrual cycle Contraceptive management V25.9 Active Abram Bailey MD Encounter for unspecified contraceptive management High-risk sexual behavior V69.2 Active Lydia Ferrell APRN High-risk sexual behavior Medication List Medication Instructions Start Date Stop Date Generic Name NDC Status Provider Patient Instruction CYCLAFEM 0.5/0.75/1-35 MG-MCG TABS 1 daily NORETHIN-ETH ESTRAD TRIPHASIC 47935325571 Active Abram Bailey MD Active Advance Directives Directive Description Start Date CONSENT TO MEDICAL CARE Vital Signs Date Name Value Unit Range Description blood pressure, diastolic - 8462-4 71 mm[Hg] BP desir blood pressure, systolic - 8480-6 114 mm[Hg] BP sys height E&M - 8302-2 67.25 [in_us] Bdy height pulse rate E&M - 8867-4 79 /min Heart rate temperature E&M 99 [degF] Body temperature weight E&M - 3141-9 209 [lb_av] Weight Measured Diagnostic Results Date Name Value Unit Range Description Lab Report: Chlamydia/GC APTIMA/32904, HIV-1/HIV-2 AB SCREEN W ... - Lab chlamydia DNA probe NOT DETECTED NOT DETECTED Lab Report: Chlamydia/GC APTIMA/11888, HIV-1/HIV-2 AB SCREEN W ... - Microbiology Neisseria gonorrhoeae DNA probe NOT DETECTED NOT DETECTED Lab Report: Chlamydia/GC APTIMA/27200, HIV-1/HIV-2 AB SCREEN W ... 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
--- OUTSIDE RECORDS SUMMARY | 2018-04-04 05:25 | XMS REPORT | Clinical Summary ---
Author Author Admin, ERICH Organization [facility] Address Unknown Phone Unavailable Allergies, Adverse Reactions, Alerts Allergy Name Reaction Description Start Date Severity Status Provider Allergies Unknown Conditions or Problems Problem Name Problem Code Onset Date Status Entry Date Provider Comment Standard Description Annotate Irregular menses 626.4 Active Abram Bailey MD Irregular menstrual cycle Contraceptive management V25.9 Active Abram Bailey MD Encounter for unspecified contraceptive management High-risk sexual behavior V69.2 Active Lydia Ferrell DALJIT High-risk sexual behavior Medication List Medication Instructions Start Date Stop Date Generic Name NDC Status Provider Patient Instruction CYCLAFEM 7/7/7 0.5/0.75/1-35 MG-MCG TABS 1 daily NORETHIN-ETH ESTRAD TRIPHASIC 44606579801 Active Abram Bailey MD Active Advance Directives Directive Description Start Date CONSENT TO MEDICAL CARE Diagnostic Results Date Name Value Unit Range Description Lab Report: Chlamydia/GC APTIMA/05014, HIV-1/HIV-2 AB SCREEN W REFL/1971 ... - Lab chlamydia DNA probe NOT DETECTED NOT DETECTED Lab Report: Chlamydia/GC APTIMA/45606, HIV-1/HIV-2 AB SCREEN W REFL/1971 ... - Microbiology Neisseria gonorrhoeae DNA probe NOT DETECTED NOT DETECTED Lab Report: Chlamydia/GC APTIMA/75047, HIV-1/HIV-2 AB SCREEN W REFL/1972 ... 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
--- OUTSIDE RECORDS SUMMARY | 2018-04-04 05:25 | XMS REPORT ---
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 Active 95754834 Problem Allergic rhinitis, cause unspecified 477.9 Active 91535889 Problem Counseling on other sexually transmitted diseases V65.45 Active 369380561 Problem General counseling for prescription of oral contraceptives V25.01 Active 805622971998961 Problem examination or test, negative result V72.41 Active 751026525 Problem Moderate episode of recurrent major depressive disorder F33.1 Active 812002522 Problem Depression, reactive F32.9 Active 67235191 Problem Dysthymia F34.1 Active 84544837 Problem Panic attack F41.0 Active 808622426 Problem Anxiety F41.9 Active 61436574 Problem Post traumatic stress disorder (PTSD) F43.10 Active 32899689 ALLERGIES No Known Allergies ENCOUNTERS Encounter Location Date Diagnosis [place] [id number] [address] Jan, [facility] [id number] [place] [address] Dec, Moderate episode of recurrent major depressive disorder F33.1 [facility] [address] [place] [address] Jul, Moderate episode of recurrent major depressive disorder F33.1 [facility] [id number], [place] [address] May, Moderate episode of recurrent major depressive disorder F33.1 [place] [address], [place] [address] Apr, Anxiety F41.9 ; Post traumatic stress disorder (PTSD) F43.10 ; Panic attack F41.0 ; Dysthymia F34.1 ; Night terrors F51.4 and Depression, reactive F32.9 [place] [address], [place] [address] Oct, [place] [address] [place] [address] [id number] [place] [address] Oct, [place] [id number] [place] [address] Mar, [place] [address] [address] [id number] [place] [address] Mar, [place] [address] [place] [address] Jan, [place] [address] [place] [address] Jan, IMMUNIZATIONS No Known Immunizations SOCIAL HISTORY Never Assessed REASON FOR VISIT f/u----Bessie PLAN OF CARE Activity Details Follow Up 3 Months Reason: VITAL SIGNS Height 65 in 2017-08-01 Weight 218 lbs 2017-08-01 Heart Rate 80 bpm 2017-08-01 Respiratory Rate 20 2017-08-01 BMI 36.27 kg/m2 2017-08-01 Blood pressure systolic 120 mmHg 2017-08-01 Blood pressure diastolic 80 mmHg 2017-08-01 MEDICATIONS Medication Instructions Dosage Frequency Start Date End Date Duration Status Claritin 10 mg 1 tablet by Oral route 1 time per day Jan, Not-Taking Trazodone HCl 50 MG Orally at bedtime as needed for sleep 0.5-1 tablet Jul, 30 day(s) Active Celexa 10 MG Orally Once a day 1 tablet 24h May, 30 days Active Levonorgestrel-Ethinyl Estrad 0.1-20 mg-mcg 1 tablet by Oral route 1 time per day Mar, Not-Taking Flonase 50 mcg/actuation 1 sprays by Nasal route 2 times per day in each nostril Jan, Not-Taking RESULTS No Results PROCEDURES No Known procedures INSTRUCTIONS MEDICATIONS ADMINISTERED No Known Medications MEDICAL (GENERAL) HISTORY Type Description Date Medical History PTSD Medical History depression Medical History insomnia
--- OUTSIDE RECORDS SUMMARY | 2018-04-04 05:25 | XMS REPORT ---
Author Author TEVIN ELIZABETH Organization 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 Active 93339102 Problem Allergic rhinitis, cause unspecified 477.9 Active 18474436 Problem Counseling on other sexually transmitted diseases V65.45 Active 205816329 Problem General counseling for prescription of oral contraceptives V25.01 Active 879196826174801 Problem examination or test, negative result V72.41 Active 083457375 Problem Moderate episode of recurrent major depressive disorder F33.1 Active 116067450 Problem Depression, reactive F32.9 Active 05391550 Problem Dysthymia F34.1 Active 64865755 Problem Panic attack F41.0 Active 954806282 Problem Anxiety F41.9 Active 36217171 Problem Post traumatic stress disorder (PTSD) F43.10 Active 24251390 ALLERGIES No Information ENCOUNTERS Encounter Location Date Diagnosis [facility] [id number] [address] Dec, Moderate episode of recurrent major depressive disorder F33.1 [facility] [id number] [address] Dec, Moderate episode of recurrent major depressive disorder F33.1 [facility] [id number] [address] Jul, Moderate episode of recurrent major depressive disorder F33.1 [facility] [id number] [address] May, Moderate episode of recurrent major depressive disorder F33.1 [place] [address] [address] Apr, Anxiety F41.9 ; Post traumatic stress disorder (PTSD) F43.10 ; Panic attack F41.0 ; Dysthymia F34.1 ; Night terrors F51.4 and Depression, reactive F32.9 [place] [address] [address] Oct, [place] [address] [place] [id number] [address] Oct, [place] [address] [id number] [place] [address] Mar, [place] [id number] [place] [address] Mar, [place] [address] [id number] [place] [address] Jan, [place] [address] [address] Jan, IMMUNIZATIONS No Known Immunizations SOCIAL HISTORY Never Assessed REASON FOR VISIT med refill PLAN OF CARE VITAL SIGNS MEDICATIONS Medication Instructions Dosage Frequency Start Date End Date Duration Status Celexa 20 MG Orally Once a day 1 tablet 24h 30 days Active Trazodone HCl 50 MG Orally at bedtime as needed for sleep 0.5-1 tablet 30 days Active HydrOXYzine HCl 25 MG Orally three times a day as needed 0.5-1 tab Dec 30 day(s) Active RESULTS No Results PROCEDURES No Known procedures INSTRUCTIONS MEDICATIONS ADMINISTERED No Known Medications MEDICAL (GENERAL) HISTORY Type Description Date Medical History PTSD Medical History depression Medical History insomnia
--- OUTSIDE RECORDS SUMMARY | 2018-04-04 05:26 | XMS REPORT | Clinical Summary ---
Author Author Admin, Kelly Organization [facility] Address Unknown Phone Unavailable Allergies, Adverse Reactions, [...] management High-risk sexual behavior V69.2 Active Lydia Negretehenrietta BOCANEGRA High-risk sexual behavior Medication List Medication Instructions Start Date Stop Date Generic Name NDC Status Provider Patient Instruction CYCLAFEM //7 0.5/0.75/1-35 MG-MCG TABS 1 daily NORETHIN-ETH ESTRAD TRIPHASIC 67929784346 Active Abram Bailey MD Active Advance Directives Directive Description Start Date CONSENT TO MEDICAL CARE Diagnostic Results Date Name Value Unit Range Description Lab Report: [facility] - Chemistry human chorionic gonadotropin, urine, qualitative (urine test) Negative Negative Encounters Code Encounter Date Provider Facility CPT-33571 Level 2 New 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
--- OUTSIDE RECORDS SUMMARY | 2018-04-04 05:26 | XMS REPORT | Clinical Summary ---
Author Author Admin, ERICH Organization [employer] Address Unknown Phone Unavailable Allergies, Adverse Reactions, Alerts Allergy Name Reaction Description Start Date Severity Status Provider No Known Allergies Maureen Harrell MA Conditions or Problems Problem Name Problem Code Onset Date Status Entry Date Provider Comment Standard Description Annotate Irregular menses 626.4 Active Abram Bailey MD Irregular menstrual cycle Contraceptive management V25.9 Active Abram Bailey MD Encounter for unspecified contraceptive management High-risk sexual behavior V69.2 Active Lydia Ferrell APRN High-risk sexual behavior Upper respiratory infection 465.9 Active Abram Bailey MD Acute upper respiratory infections of unspecified site Medication List Medication Instructions Start Date Stop Date Generic Name NDC Status Provider Patient Instruction CYCLAFEM 0.5/0.75/1-35 MG-MCG TABS 1 daily NORETHIN-ETH ESTRAD TRIPHASIC 01545072974 Active Abram Bailey MD Active Advance Directives Directive Description Start Date CONSENT TO MEDICAL CARE Vital Signs Date Name Value Unit Range Description blood pressure, diastolic - 8462-4 80 mm[Hg] BP desir blood pressure, systolic - 8480-6 135 mm[Hg] BP sys pulse rate E&M - 8867-4 88 /min Heart rate temperature E&M 98.5 [degF] Body temperature weight E&M - 3141-9 211 [lb_av] Weight Measured blood pressure, diastolic - 8462-4 71 mm[Hg] BP desir blood pressure, systolic - 8480-6 114 mm[Hg] BP sys height E&M - 8302-2 67.25 [in_us] Bdy height pulse rate E&M - 8867-4 79 /min Heart rate temperature E&M 99 [degF] Body temperature weight E&M - 3141-9 209 [lb_av] Weight Measured Diagnostic Results Date Name Value Unit Range Description Lab Report: Chlamydia/GC APTIMA/07180, HIV-1/HIV-2 AB SCREEN W REFL/1971 ... - Lab chlamydia DNA probe NOT DETECTED NOT DETECTED Lab Report: Chlamydia/GC APTIMA/98898, HIV-1/HIV-2 AB SCREEN W REFL/1971 ... - Microbiology Neisseria gonorrhoeae DNA probe NOT DETECTED NOT DETECTED Lab Report: Chlamydia/GC APTIMA/45981, HIV-1/HIV-2 AB SCREEN W REFL/1971 ... - Serology rapid plasma reagin antibody titer NON-REACTIVE NON-REACTIVE Lab Report: [facility] - Chemistry human chorionic gonadotropin, urine, qualitative (urine test) Negative Negative Encounters Code Encounter Date Provider Facility CPT-07023 Level 3 Est. 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
--- OUTSIDE RECORDS SUMMARY | 2018-04-04 05:26 | XMS REPORT | Clinical Summary ---
Author Author Admin, ERICH Organization [facility] Address Unknown Phone Unavailable Allergies, Adverse Reactions, [...] MG-MCG TABS 1 daily NORETHIN-ETH ESTRAD TRIPHASIC 66503057038 Active Abram Bailey MD Active Advance Directives [...] Value Unit Range Description Lab Report: Chlamydia/GC APTIMA/88859, HIV-1/HIV-2 AB SCREEN W REFL/1971 ... - Lab chlamydia DNA probe NOT DETECTED NOT DETECTED Lab Report: Chlamydia/GC APTIMA/12531, HIV-1/HIV-2 AB SCREEN W REFL/1971 ... - Microbiology Neisseria gonorrhoeae DNA probe NOT DETECTED NOT DETECTED Lab Report: Chlamydia/GC APTIMA/50620, HIV-1/HIV-2 AB SCREEN W REFL/1971 ... - Serology rapid plasma reagin antibody titer NON-REACTIVE NON-REACTIVE Lab Report: [facility] [place] Chemistry human chorionic gonadotropin, urine, qualitative (urine test) Negative Negative Encounters Code Encounter Date Provider Facility CPT-71062 Level 3 Est. 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
--- OUTSIDE RECORDS SUMMARY | 2018-04-04 05:26 | XMS REPORT | Continuity of Care Document ---
Author Author [facility] of [facility] of [facility] Address Unknown Phone Unavailable Allergies Active Description Code Type Severity Reaction Onset Reported/Identified Relationship to Patient Clinical Status Yes No Known Drug Allergies [id number] Drug Allergy Mild N/A 03/15/2009 Medications There is no data. Problems Date Dx Coded Attending Type Code Diagnosis Diagnosed By 02/21/2014 ASHLEE WEATHERS APRN 477.9 ALLERGIC RHINITIS CAUSE UNSPECIFIED 02/21/2014 ASHLEE WEATHERS APRN N 478.19 OTHER DISEASES OF NASAL CAVITY AND SINUSES 02/21/2014 PAM KHAN APRN A 477.9 ALLERGIC RHINITIS CAUSE UNSPECIFIED 02/21/2014 PAM KHAN APRN A 478.19 OTHER DISEASES OF NASAL CAVITY AND SINUSES 04/02/2014 PAM KHAN APRN A V25.01 CONTRACEPTION - ORAL CONTRACEPTION 04/02/2014 PAM KHAN APRN A V65.45 STD COUNSELING 04/02/2014 PAM KHAN APRN A V72.41 TEST NEGATIVE RESULT 01/07/2018 MATILDE KASPERP Ot F17.210 NICOTINE DEPENDENCE, CIGARETTES, UNCOMPL 01/07/2018 MATILDE KASPERP Ot F32.9 MAJOR DEPRESSIVE DISORDER, SINGLE EPISOD 01/07/2018 MATILDE KASPER DIE CAST PATTERNMAKER Ot F41.9 ANXIETY DISORDER, UNSPECIFIED 01/07/2018 MATILDE KASPERP Ot G47.9 SLEEP DISORDER, UNSPECIFIED 01/07/2018 MATILDE KASPER DIE CAST PATTERNMAKER Ot K62.89 OTHER SPECIFIED DISEASES OF ANUS AND REC 01/07/2018 MATILDE KASPERP Ot K64.9 UNSPECIFIED HEMORRHOIDS 01/09/2018 MATILDE KASPER DIE CAST PATTERNMAKER Ot F17.210 NICOTINE DEPENDENCE, CIGARETTES, UNCOMPL 01/09/2018 RANJITH MATILDE DIE CAST PATTERNMAKER Ot F32.9 MAJOR DEPRESSIVE DISORDER, SINGLE EPISOD 01/09/2018 RANJITH MATILDE DIE CAST PATTERNMAKER Ot F41.9 ANXIETY DISORDER, UNSPECIFIED 01/09/2018 MATILDE KASPERP Ot G47.9 SLEEP DISORDER, UNSPECIFIED 01/09/2018 RANJITH, MATILDE HERNANDEZP Ot K62.89 OTHER SPECIFIED DISEASES OF ANUS AND REC 01/09/2018 MATILDE KASPERP Ot K64.9 UNSPECIFIED HEMORRHOIDS 01/13/2018 MATILDE KASPERP Ot F17.210 NICOTINE DEPENDENCE, CIGARETTES, UNCOMPL 01/13/2018 MATILDE KASPERP Ot F32.9 MAJOR DEPRESSIVE DISORDER, SINGLE EPISOD 01/13/2018 RANJITH, MATILDE DIE CAST PATTERNMAKER Ot F41.9 ANXIETY DISORDER, UNSPECIFIED 01/13/2018 RANJITH, MATILDE DIE CAST PATTERNMAKER Ot G47.9 SLEEP DISORDER, UNSPECIFIED 01/13/2018 RANJITH, MATILDE DIE CAST PATTERNMAKER Ot K62.89 OTHER SPECIFIED DISEASES OF ANUS AND REC 01/13/2018 MATILDE KASPERP Ot K64.9 UNSPECIFIED HEMORRHOIDS Procedures Code Description [place] [address] TEST, URINE (IN- HOUSE) 02/21/2014 59934 STREP A (IN-HOUSE) 02/21/2014 23359 TEST, URINE (IN- HOUSE) 04/02/2014 Results Test Result Range Complete urinalysis with reflex to culture - 01/07/18 16:49 Urine color determination YELLOW NRG Urine clarity determination VERY CLOUDY NRG Urine pH measurement by test strip 7 5-9 Specific gravity of urine by test strip 1.010 1.016- 1.022 Urine protein assay by test strip, semi-quantitative NEGATIVE NEGATIVE Urine glucose detection by automated test strip NEGATIVE NEGATIVE Erythrocytes detection in urine sediment by light microscopy 3+ NEGATIVE Urine ketones detection by automated test strip NEGATIVE NEGATIVE Urine nitrite detection by test strip NEGATIVE NEGATIVE Urine total bilirubin detection by test strip NEGATIVE NEGATIVE Urine urobilinogen measurement by automated test strip (mass/volume) NORMAL NORMAL Urine leukocyte esterase detection by dipstick 3+ NEGATIVE Automated urine sediment erythrocyte count by microscopy (number/high power field) RARE NRG Automated urine sediment leukocyte count by microscopy (number/high power field ) [HPF] NRG Bacteria detection in urine sediment by light microscopy NEGATIVE NRG Squamous epithelial cells detection in urine sediment by light microscopy 10-25 NRG Crystals detection in urine sediment by light microscopy PRESENT NRG Casts detection in urine sediment by light microscopy NONE NRG Mucus detection in urine sediment by light microscopy NEGATIVE NRG Complete urinalysis with reflex to culture NO NRG Amorphous sediment detection in urine sediment by light microscopy LARGE DAMON URATES NRG Renal epithelial cells detection in urine sediment by light microscopy NONE NRG Encounters ACCT No. Visit Date/Time Discharge Status Pt. Type Provider Facility Loc./Unit Complaint [id number] 04/02/2014 14:24:00 04/02/2014 23:59:59 CLS Outpatient PAM KHAN APRN [id number] 02/21/2014 13:39:00 02/21/2014 23:59:59 CLS Outpatient ASHLEE WEATHERS APRN [id number] 01/07/2018 16:12:00 01/07/2018 17:40:00 DIS Emergency MATILDE KASPER Via [facility] ER RECTAL BLEEDING [id number] 01/22/2013 15:20:00 01/22/2013 23:59:59 CLS Outpatient [id number] 01/04/2018 08:20:00 01/04/2018 23:59:59 CLS Outpatient JUANA AVELAR [facility] [id number] 09/03/2017 10:10:34 ACT Unknown
--- OUTSIDE RECORDS SUMMARY | 2018-04-04 05:26 | XMS REPORT | Clinical Summary ---
Author Author Admin, ERICH Organization [facility] Address Unknown Phone Unavailable Allergies, Adverse Reactions, [...] MG-MCG TABS 1 daily NORETHIN-ETH ESTRAD TRIPHASIC 47802064495 Active Abram Bailey MD Active Advance Directives [...] Value Unit Range Description Lab Report: Chlamydia/GC APTIMA/96834, HIV-1/HIV-2 AB SCREEN W REFL/1971 ... - Lab chlamydia DNA probe NOT DETECTED NOT DETECTED Lab Report: Chlamydia/GC APTIMA/22926, HIV-1/HIV-2 AB SCREEN W REFL/1971 ... - Microbiology Neisseria gonorrhoeae DNA probe NOT DETECTED NOT DETECTED Lab Report: Chlamydia/GC APTIMA/10819, HIV-1/HIV-2 AB SCREEN W REFL/1971 ... - Serology rapid plasma reagin antibody titer NON-REACTIVE NON-REACTIVE Lab Report: [facility] [place] Chemistry human chorionic gonadotropin, urine, qualitative (urine test) Negative Negative Encounters Code Encounter Date Provider Facility CPT-26733 Level 3 Est. Patient 15:24:11 SNOWMOBILE MECHANIC Abram Bailey MD [facility] CPT-26126 Level 2 New Patient 17:55:29 SNOWMOBILE MECHANIC Abram Bailey MD [facility]
--- OUTSIDE RECORDS SUMMARY | 2018-04-04 05:26 | XMS REPORT | Clinical Summary ---
Author Author Admin, [facility] Organization [facility] Address Unknown Phone Unavailable Allergies, Adverse Reactions, Alerts Allergy Name Reaction Description Start Date Severity Status Provider Allergies Unknown Conditions or Problems Problem Name Problem Code Onset Date Status Entry Date Provider Comment Standard Description Annotate Irregular menses 626.4 Active Abram Bailey MD Irregular menstrual cycle Contraceptive management V25.9 Active Abram Bailey MD Encounter for unspecified contraceptive management Medication List Medication Instructions Start Date Stop Date Generic Name NDC Status Provider Patient Instruction CYCLAFEM 7/7/7 0.5/0.75/1-35 MG-MCG TABS 1 daily NORETHIN-ETH ESTRAD TRIPHASIC 17358205869 Active Abram Bailey MD Active Diagnostic Results Date Name Value Unit Range Description Lab Report: [facility] - Chemistry human chorionic gonadotropin, urine, qualitative (urine test) Negative Negative Encounters Code Encounter Date Provider Facility CPT-20464 Level 2 New Patient 17:55:29 WELDER GAS Abram Bailey MD [facility]
--- OUTSIDE RECORDS SUMMARY | 2018-04-04 05:26 | XMS REPORT | Clinical Summary ---
Author Author Admin, ERICH Organization [facility] Address Unknown Phone Unavailable Allergies, Adverse Reactions, [...] MG-MCG TABS 1 daily NORETHIN-ETH ESTRAD TRIPHASIC 18720537035 Active Abram Bailey MD Active Advance Directives Directive Description Start Date CONSENT TO MEDICAL CARE Diagnostic Results Date Name Value Unit Range Description Lab Report: Chlamydia/GC APTIMA/91198, HIV-1/HIV-2 AB SCREEN W REFL/1971 ... - Lab chlamydia DNA probe NOT DETECTED NOT DETECTED Lab Report: Chlamydia/GC APTIMA/48242, HIV-1/HIV-2 AB SCREEN W REFL/1971 ... - Microbiology Neisseria gonorrhoeae DNA probe NOT DETECTED NOT DETECTED Lab Report: Chlamydia/GC APTIMA/86622, HIV-1/HIV-2 AB SCREEN W REFL/1972 ... - Serology rapid plasma reagin antibody titer NON-REACTIVE NON-REACTIVE Lab Report: [facility] [place] - Chemistry human chorionic gonadotropin, urine, qualitative (urine test) Negative Negative Encounters Code Encounter Date Provider Facility CPT-61687 Level 2 New Patient 17:55:29 ENERGY ENGINEER Abram Bailey MD [facility]
--- OUTSIDE RECORDS SUMMARY | 2018-04-04 05:26 | XMS REPORT | Clinical Summary ---
Author Author Admin, [facility] Organization [facility] Address Unknown Phone Unavailable Allergies, Adverse [...] management High-risk sexual behavior V69.2 Active Lydia Yohenrietta BOCANEGRA High-risk sexual behavior Medication List Medication Instructions Start Date Stop Date Generic Name NDC Status Provider Patient Instruction CYCLAFEM //7 0.5/0.75/1-35 MG-MCG TABS 1 daily NORETHIN-ETH ESTRAD TRIPHASIC [id number] Active Abram Bailey MD Active Diagnostic Results Date Name Value Unit Range Description Lab Report: [place] - Chemistry human chorionic gonadotropin, urine, qualitative (urine test) Negative Negative Encounters Code Encounter Date Provider Facility CPT-77435 Level 2 New Patient 17:55:29 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
== END 2018-04-04 04:10 | disposition home or self-care (01) ==
LOC: EDUNIT# 03:16 → ER 03:18
DX: N39.0 Urinary tract infection, site not specified (principal); R10.2 Pelvic and perineal pain; F41.9 Anxiety disorder, unspecified; F32.9 Major depressive disorder, single episode, unspecified; F43.10 Post-traumatic stress disorder, unspecified; F17.210 Nicotine dependence, cigarettes, uncomplicated
CPT/HCPCS: 81000; 84703; 87088; 99283

== ENCOUNTER 2018-04-17 10:04 | Emergency (ER) | payer MEDICAID ==
[~2018-04-17] VITALS: Ht 172.7 cm; Wt 102.5 kg
[~2018-04-17 10:04] MED LIST changes: +CEPH-507 PO; +PHEN-640 PO
--- OUTSIDE RECORDS SUMMARY | 2018-04-17 10:10 | XMS REPORT ---
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 Active 86028807 Problem Allergic rhinitis, cause unspecified 477.9 Active 35492741 Problem Counseling on other sexually transmitted diseases V65.45 Active 098397179 Problem General counseling for prescription of oral contraceptives V25.01 Active 078971434887993 Problem examination or test, negative result V72.41 Active 002847680 Problem Moderate episode of recurrent major depressive disorder F33.1 Active 678930948 Problem Depression, reactive F32.9 Active 68924072 Problem Dysthymia F34.1 Active 67500631 Problem Panic attack F41.0 Active 901433736 Problem Anxiety F41.9 Active 62319646 Problem Post traumatic stress disorder (PTSD) F43.10 Active 33925750 ALLERGIES No Information ENCOUNTERS Encounter Location Date Diagnosis [place] [id number] [place] [phone] Jun, [facility] [place] [id number] [place] [address] [phone] Mar, Moderate episode of recurrent major depressive disorder F33.1 [facility] [place] [id number] [place] [address] [phone]- [phone] Dec, Moderate episode of recurrent major depressive disorder F33.1 [facility] [place] [address] [place] [address] [phone]- [phone] Dec, Moderate episode of recurrent major depressive disorder F33.1 [facility] [place] [id number] [place] [phone] Jul, Moderate episode of recurrent major depressive disorder F33.1 [place] [address] [id number] [place] [address] [phone] May, Moderate episode of recurrent major depressive disorder F33.1 [place] [address] [place] [id number] [place] [address] 59934- [phone] Apr, Anxiety F41.9 ; Post traumatic stress disorder (PTSD) F43.10 ; Panic attack F41.0 ; Dysthymia F34.1 ; Night terrors F51.4 and Depression, reactive F32.9 [place] [address] [id number] [place] [address] [phone] Oct, [place] [address] [place] [id number] [place] [address] 48384- [phone] Oct, [place] [address] [id number] [place] [address] 48941- 2456 Mar, [place] [address] [id number] [place] [address] [phone] Mar, [place] [address] [id number] [place] [address] [phone]- [phone] Jan, [place] [address] [place] [id number] [place] [address] [phone] Jan, IMMUNIZATIONS No Known Immunizations SOCIAL HISTORY Never Assessed REASON FOR VISIT f/u Neftali Sloan MA PLAN OF CARE Activity Details Follow Up 4 Weeks, prn Reason: VITAL SIGNS Height 65 in 2018-01-04 Weight 223.8 lbs 2018-01-04 Heart Rate 70 bpm 2018-01-04 Respiratory Rate 18 2018-01-04 BMI 37.24 kg/m2 2018-01-04 Blood pressure systolic 110 mmHg 2018-01-04 Blood pressure diastolic 78 mmHg 2018-01-04 MEDICATIONS Medication Instructions Dosage Frequency Start Date End Date Duration Status Levonorgestrel-Ethinyl Estrad 0.1-20 mg-mcg 1 tablet by Oral route 1 time per day Mar, Not-Taking Claritin 10 mg 1 tablet by Oral route 1 time per day Jan, Not-Taking Flonase 50 mcg/actuation 1 sprays by Nasal route 2 times per day in each nostril Jan, Not-Taking HydrOXYzine HCl 25 MG Orally three times a day as needed 0.5-1 tab Dec 30 day(s) Active Celexa 20 MG Orally Once a day 1 tablet 24h 30 days Active Trazodone HCl 50 MG Orally at bedtime as needed for sleep 0.5-1 tablet 30 days Active RESULTS No Results PROCEDURES No Known procedures INSTRUCTIONS MEDICATIONS ADMINISTERED No Known Medications MEDICAL (GENERAL) HISTORY Type Description Date Medical History PTSD Medical History depression Medical History insomnia
--- OUTSIDE RECORDS SUMMARY | 2018-04-17 10:12 | XMS REPORT | Continuity of Care Document ---
Author Author [facility] of [facility] Address Unknown Phone Unavailable Allergies Active Description Code Type Severity Reaction Onset Reported/Identified Relationship to Patient Clinical Status Yes No Known Drug Allergies [id number] Drug Allergy Mild N/A 03/15/2009 Medications There [...] DEPRESSIVE DISORDER, SINGLE EPISOD 01/07/2018 MATILDE KASPER CENTRAL STERILE TECHNICIAN Ot F41.9 ANXIETY DISORDER, UNSPECIFIED 01/07/2018 MATILDE KASPERP Ot G47.9 SLEEP DISORDER, UNSPECIFIED 01/07/2018 MATILDE KASPER CENTRAL STERILE TECHNICIAN Ot K62.89 OTHER SPECIFIED DISEASES OF ANUS AND REC 01/07/2018 MATILDE KASPERP Ot K64.9 UNSPECIFIED HEMORRHOIDS 01/09/2018 MATILDE KASPER CENTRAL STERILE TECHNICIAN Ot F17.210 NICOTINE DEPENDENCE, CIGARETTES, UNCOMPL 01/09/2018 RANJITH MATILDE CENTRAL STERILE TECHNICIAN Ot F32.9 MAJOR DEPRESSIVE DISORDER, SINGLE EPISOD 01/09/2018 RANJITH MATILDE CENTRAL STERILE TECHNICIAN Ot F41.9 ANXIETY DISORDER, UNSPECIFIED 01/09/2018 RANJITH, MATILDE CENTRAL STERILE TECHNICIAN Ot G47.9 SLEEP DISORDER, UNSPECIFIED 01/09/2018 RANJITH, MATILDE CENTRAL STERILE TECHNICIAN Ot K62.89 OTHER SPECIFIED DISEASES OF ANUS AND REC 01/09/2018 RANJITH, MATILDE CENTRAL STERILE TECHNICIAN Ot K64.9 UNSPECIFIED HEMORRHOIDS 01/13/2018 RANJITH, MATILDE CENTRAL STERILE TECHNICIAN Ot F17.210 NICOTINE DEPENDENCE, CIGARETTES, UNCOMPL 01/13/2018 RANJITH, MATILDE CENTRAL STERILE TECHNICIAN Ot F32.9 MAJOR DEPRESSIVE DISORDER, SINGLE EPISOD 01/13/2018 RANJITH, MATILDE CENTRAL STERILE TECHNICIAN Ot F41.9 ANXIETY DISORDER, UNSPECIFIED 01/13/2018 RANJITH, MATILDE CENTRAL STERILE TECHNICIAN Ot G47.9 SLEEP DISORDER, UNSPECIFIED 01/13/2018 RANJITH, MATILDE CENTRAL STERILE TECHNICIAN Ot K62.89 OTHER SPECIFIED DISEASES OF ANUS AND REC 01/13/2018 RANJITH, MATILDE CENTRAL STERILE TECHNICIAN Ot K64.9 UNSPECIFIED HEMORRHOIDS 04/06/2018 SHADY SALDIVAR, CIPRIANO Garcia Ot F17.210 NICOTINE DEPENDENCE, CIGARETTES, UNCOMPL 04/06/2018 SHADY SALDIVAR, CIPRIANO Garcia Ot F32.9 MAJOR DEPRESSIVE DISORDER, SINGLE EPISOD 04/06/2018 SHADY SALDIVAR, CIPRIANO Garcia Ot F41.9 ANXIETY DISORDER, UNSPECIFIED 04/06/2018 SHADY SALDIVAR, CIPRIANO Garcia Ot F43.10 POST-TRAUMATIC STRESS DISORDER, UNSPECIF 04/06/2018 SHADY SALDIVAR, CIPRIANO Garcia Ot N39.0 URINARY TRACT INFECTION, SITE NOT SPECIF 04/06/2018 CIPRIANO CARUSO MD Ot R10.2 PELVIC AND PERINEAL PAIN Procedures Code Description [place] [address] TEST, URINE (IN- HOUSE) 02/21/2014 46764 STREP A (IN-HOUSE) 02/21/2014 83333 TEST, URINE (IN- HOUSE) 04/02/2014 Results Test [...] urine sediment by light microscopy NONE NRG Complete urinalysis with reflex to culture - 04/04/18 03:30 Urine color determination HERB NRG Urine clarity determination SLIGHTLY CLOUDY NRG Urine pH measurement by test strip 5 5-9 Specific gravity of urine by test strip 1.030 1.016- 1.022 Urine protein assay by test strip, semi-quantitative 2+ NEGATIVE Urine glucose detection by automated test strip NEGATIVE NEGATIVE Erythrocytes detection in urine sediment by light microscopy 5+ NEGATIVE Urine ketones detection by automated test strip 1+ NEGATIVE Urine nitrite detection by test strip NEGATIVE NEGATIVE Urine total bilirubin detection by test strip NEGATIVE NEGATIVE Urine urobilinogen measurement by automated test strip (mass/volume) 1 mg/dL NORMAL Urine leukocyte esterase detection by dipstick 2+ NEGATIVE Automated urine sediment erythrocyte count by microscopy (number/high power field) > [HPF] NRG Automated urine sediment leukocyte count by microscopy (number/high power field ) [HPF] NRG Bacteria detection in urine sediment by light microscopy MODERATE NRG Squamous epithelial cells detection in urine sediment by light microscopy 2-5 NRG Crystals detection in urine sediment by light microscopy NONE NRG Casts detection in urine sediment by light microscopy NONE NRG Mucus detection in urine sediment by light microscopy NEGATIVE NRG Complete urinalysis with reflex to culture YES NRG Bacterial urine culture - 04/04/18 03:30 Bacterial urine culture SEE COMMEN NRG COLONY COUNT . NRG Encounters ACCT No. Visit Date/Time Discharge Status Pt. Type Provider Facility Loc./Unit Complaint [id number] 04/02/2014 14:24:00 04/02/2014 23:59:59 CLS Outpatient ERIN NELSONNPAM Daniel [id number] 02/21/2014 13:39:00 02/21/2014 23:59:59 CLS Outpatient ASHLEE WEATHERS APRN Charles [id number] 04/04/2018 03:18:00 04/04/2018 04:10:00 DIS Outpatient CIPRIANO CARUSO MD Via [facility] ER PELVIC PAIN [id number] 01/07/2018 16:12:00 01/07/2018 17:40:00 DIS Emergency MATILDE KASPER Via [facility] ER RECTAL BLEEDING [id number] 01/22/2013 15:20:00 01/22/2013 23:59:59 CLS Outpatient [id number] 01/04/2018 08:20:00 01/04/2018 23:59:59 CLS [facility] [id number] 09/03/2017 10:10:34 ACT Unknown
[2018-04-17] MEDS ORDERED: DOXEPIN (10:32)
--- NOTE | 2018-04-17 11:11 | ED Cough/URI ---
General Chief Complaint: Cough/Cold/Flu Symptoms Stated Complaint: COUGH/SOA Nursing Triage Note: AMBULATED TO TRIAGE WITHOUT DIFFICULTY. COMPLAINS OF COUGH X 1.5 WEEKS ET STATES A COWORKER WAS DX WITH BRONCHITIS. Source: patient Exam Limitations: no limitations History of Present Illness Date Seen by Provider: Apr 17, 2018 Time Seen by Provider: 11:07 Initial Comments Patient is a 22-year-old female who presents to the emergency room with complaints of a cough for one and half weeks. She reports that a coworker has had bronchitis and she thinks she has contracted it. She reports that it hurts to take a deep breath and she's had lots of sinus drainage. Timing/Duration: other (1.5 weeks) Severity/Quality: productive cough Prior Episodes/Possible Cause: no prior episodes Associated Symptoms: cough, nasal congestion, sore throat Allergies and Home Medications Allergies Coded Allergies: No Known Drug Allergies (Unverified , 03/15/09) Home Medications Azithromycin 250 Mg Tablet, 250 MG PO UD TAKE 2 TABLETS TODAY, THEN TAKE 1 TABLET DAILY FOR 4 MORE DAYS Prescribed by: HUNG KRISHNAN on 04/17/18 1120 Prednisone 10 Mg Tab.ds.pk, 10 MG PO UD Prescribed by: HUNG KRISHNAN on 04/17/18 1120 Patient Home Medication List Home Medication List Reviewed: Yes Review of Systems Review of Systems Constitutional: see HPI; No chills, No fever EENTM: see HPI, nose congestion Respiratory: no symptoms reported; No cough; other (pain with deep breathing) All Other Systems Reviewed Negative Unless Noted: Yes Past Mosuoxp-Eislut-Hynjma Hx Past Med/Social Hx: Reviewed Nursing Past Med/Soc Hx Patient Social History Alcohol Use: Denies Use Recreational Drug Use: No Smoking Status: Current Everyday Smoker Type Used: Cigarettes 2nd Hand Smoke Exposure: No Recent Foreign Travel: No Contact w/Someone Who Travel: No Recent Infectious Disease Expo: No Recent Hopitalizations: No Immunizations Up To Date Tetanus Booster (TDap): Unknown Seasonal Allergies Seasonal Allergies: No Past Medical History Surgeries: No Respiratory: No Cardiac: No Neurological: No : No Last Menstrual Period: Mar 31, 2018 Genitourinary: No Gastrointestinal: No Musculoskeletal: No Endocrine: No HEENT: No Cancer: No Psychosocial: Yes Sleep Difficulties, Anxiety, PTSD, Depression Integumentary: No Blood Disorders: No Adverse Reaction/Blood Tranf: No Family Medical History Reviewed Nursing Family Hx Physical Exam Vital Signs - First Documented 04/17/18 10:15 Temp 98.4 Pulse 89 Resp 16 B/P (MAP) 102/68 (79) Pulse Ox 96 O2 Delivery Room Air Capillary Refill : Less Than 3 Seconds Height: 5'8.00" Weight: 226lbs. oz. 102.703997bu; BMI Method:Stated General Appearance: WD/WN, no apparent distress Eyes: Bilateral Eye Normal Inspection, Bilateral Eye PERRL, Bilateral Eye EOMI HEENT: PERRL/EOMI, normal ENT inspection, TMs normal, pharynx normal Respiratory: chest non-tender, lungs clear, normal breath sounds, no respiratory distress, no accessory muscle use Cardiovascular: normal peripheral pulses, regular rate, rhythm, no edema, no gallop, no JVD, no murmur Neurologic/Psychiatric: alert, normal mood/affect, oriented x 3 Skin: normal color, warm/dry Progress/Results/Core Measures Suspected Sepsis Recent Fever Within 48 Hours: No Infection Criteria Present: None New/Unexplained Altered Menta: No Sepsis Screen: No Definite Risk SIRS Temperature:98.4 Pulse: 89 Respiratory Rate: 16 Blood Pressure 102 /68 Mean: 79 Results/Orders My Orders Orders - HUNG KRISHNAN Chest Pa/Lat (2 View) (04/17/18 11:06) Vital Signs/I&O 04/17/18 04/17/18 04/17/18 10:15 11:00 12:10 Temp 98.4 98.4 Pulse 89 63 Resp 16 16 B/P (MAP) 102/68 (79) 102/74 (79) Pulse Ox 96 99 O2 Delivery Room Air Room Air Room Air Capillary Refill : Less Than 3 Seconds Blood Pressure Mean: 79 Progress Note : Time: 11:50 Progress Note I have seen and evaluated the patient. I have elected to treat with abx due to the length of symptoms and no improvement over this time. The patient agrees with plans for discharge, return precautions were given. Diagnostic Imaging Diagonstic Imaging: Xray Plain Films/CT/US/NM/MRI: chest Comments NAME: NICOLASA ROUSE [facility] REC#: [id number] PT STATUS: REG ER : 1995 PHYSICIAN: HUNG KRISHANNP ADMIT DATE: 04/17/18/ER Draft Date of Exam:04/17/18 CHEST PA/LAT (2 VIEW) CLINICAL INDICATION: Patient with cough and trouble breathing this morning. EXAM: Chest x-ray PA and lateral views. COMPARISONS: None. FINDINGS: Lungs/pleura: Lungs are clear. There is no pneumothorax. There is no pleural effusion. Mediastinum: Unremarkable. Pulmonary vasculature: Unremarkable. Heart: Unremarkable. Bones/extrathoracic soft tissue: Unremarkable. IMPRESSION: There is no radiographic evidence of acute cardiopulmonary process. Dictated on workstation # [id number] Dict: 04/17/18 1146 Trans: 04/17/18 1148 [id number] Interpreted by: BETH JUÁREZ MD Electronically signed by: Departure Impression Primary Impression: Upper respiratory infection Additional Impression: Cough Disposition: 01 HOME, SELF-CARE Condition: Stable/Unchanged Departure-Patient Inst. Decision time for Depature: 11:18 Referrals: JACKIE CAMARENA DO (PCP/Family) Primary Care Physician Patient Instructions: Bacterial Upper Respiratory Infection, Adult (DC) Add. Discharge Instructions: Take medication as directed. You may use bvfx-eyx-jplmwmi cough cold and flu medications to alleviate some symptoms. Follow-up with Dr. Camarena within 1 week for recheck. Return back to the emergency room for any worsening symptoms or concerns as needed. All discharge instructions reviewed with patient and/or family. Voiced understanding. Scripts Prednisone (Prednisone) 10 Mg Tab.ds.pk 10 MG PO UD, #1 PKG Prov: HUNG KRISHNAN 04/17/18 Azithromycin (Zithromax) 250 Mg Tablet 250 MG PO UD, #6 TAB TAKE 2 TABLETS TODAY, THEN TAKE 1 TABLET DAILY FOR 4 MORE DAYS Prov: HUNG KRISHNAN 04/17/18 HUNG KRISHNAN Apr 17, 2018 11:10
[2018-04-17] MEDS ORDERED: AZIT250T PO (11:20)
[2018-04-17] MEDS ORDERED: PRED10TA22 PO (11:20)
--- NOTE | 2018-04-17 11:48 | Diagnostic Imaging Report ---
CLINICAL INDICATION: Patient with cough and trouble breathing this morning. EXAM: Chest x-ray PA and lateral views. COMPARISONS: None. FINDINGS: Lungs/pleura: Lungs are clear. There is no pneumothorax. There is no pleural effusion. Mediastinum: Unremarkable. Pulmonary vasculature: Unremarkable. Heart: Unremarkable. Bones/extrathoracic soft tissue: Unremarkable. IMPRESSION: There is no radiographic evidence of acute cardiopulmonary process. Dictated by: Dictated on workstation # [id number]
[2018-04-17 12:10] VITALS: BP 102/74
== END 2018-04-17 12:12 | disposition home or self-care (01) ==
LOC: EDUNIT# 10:04 → ER 10:06
DX: J06.9 Acute upper respiratory infection, unspecified (principal); R05 Cough; F41.9 Anxiety disorder, unspecified; F32.9 Major depressive disorder, single episode, unspecified; F43.10 Post-traumatic stress disorder, unspecified; F17.210 Nicotine dependence, cigarettes, uncomplicated; Z79.52 Long term (current) use of systemic steroids
CPT/HCPCS: 71046

== ENCOUNTER 2018-06-12 22:40 | Emergency (ER) | payer MEDICAID ==
[~2018-06-12] VITALS: Ht 172.7 cm; Wt 108.9 kg
[~2018-06-12 22:40] MED LIST changes: +AZIT250T PO; +DOXEPIN; +PRED10TA22 PO
--- OUTSIDE RECORDS SUMMARY | 2018-06-12 22:46 | XMS REPORT ---
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 Active 77000495 Problem Allergic rhinitis, cause unspecified 477.9 Active 77367375 Problem Counseling on other sexually transmitted diseases V65.45 Active 679345063 Problem General counseling for prescription of oral contraceptives V25.01 Active [id number] Problem examination or test, negative result V72.41 Active 023392369 Problem Moderate episode of recurrent major depressive disorder F33.1 Active 657733855 Problem Depression, reactive F32.9 Active 21759750 Problem Dysthymia F34.1 Active 82682027 Problem Panic attack F41.0 Active 320134309 Problem Anxiety F41.9 Active 65230783 Problem Post traumatic stress disorder (PTSD) F43.10 Active 18575019 ALLERGIES No Information ENCOUNTERS Encounter Location Date Diagnosis [place] [id number] [place] [phone] Jun, [facility] [address] [id number] [place] [phone] Mar, Moderate episode of recurrent major depressive disorder F33.1 [facility] [id number] [place] [phone]- [phone] Dec, Moderate episode of recurrent major depressive disorder F33.1 [facility] [id number] [place] [phone] Dec, Moderate episode of recurrent major depressive disorder F33.1 [facility] [address] [phone] Jul, Moderate episode of recurrent major depressive disorder F33.1 [place] [address] [id number] [place] [address] [phone] May, Moderate episode of recurrent major depressive disorder F33.1 [place] [address] [place] [id number] [place] [address] [phone] Apr, Anxiety F41.9 ; Post traumatic stress disorder (PTSD) F43.10 ; Panic attack F41.0 ; Dysthymia F34.1 ; Night terrors F51.4 and Depression, reactive F32.9 [place] [address] [id number] [place] [phone] Oct, [place] [address] [id number] [place] [phone] Oct, [place] [address] [id number] [place] [phone] Mar, [place] [address] [id number] [place] [address] [phone] Mar, [place] [address] [id number] [place] [address] [phone] Jan, [place] [id number] [place] [address] 56[address]- [phone] Jan, IMMUNIZATIONS No Known Immunizations SOCIAL HISTORY Never Assessed REASON FOR VISIT Psychiatric f/u- AB/MA PLAN OF CARE Activity Details Follow Up 3 Months Reason: VITAL SIGNS Height 65 in 2018-04-04 Weight 226.3 lbs 2018-04-04 Heart Rate 70 bpm 2018-04-04 Respiratory Rate 16 2018-04-04 BMI 37.65 kg/m2 2018-04-04 Blood pressure systolic 110 mmHg 2018-04-04 Blood pressure diastolic 70 mmHg 2018-04-04 MEDICATIONS Medication Instructions Dosage Frequency Start Date End Date Duration Status HydrOXYzine HCl 25 MG Orally three times a day as needed 0.5-1 tab Dec 30 days Active Doxepin HCl 10 MG Orally Once a day 1 capsule at bedtime 24h 05 Sep, 2018 30 day(s) Active Celexa 20 MG Orally Once a day 1 tablet 24h 30 days Active RESULTS No Results PROCEDURES No Known procedures INSTRUCTIONS MEDICATIONS ADMINISTERED No Known Medications MEDICAL (GENERAL) HISTORY Type Description Date Medical History PTSD Medical History depression Medical History insomnia
--- OUTSIDE RECORDS SUMMARY | 2018-06-12 22:47 | XMS REPORT | Continuity of Care Document ---
Author Author [facility] Address Unknown Phone Unavailable Allergies Active Description Code Type Severity Reaction Onset Reported/Identified Relationship to Patient Clinical Status Yes No Known Drug Allergies [id number] Drug Allergy Mild N/A 03/15/2009 Medications There [...] DEPRESSIVE DISORDER, SINGLE EPISOD 01/07/2018 MATILDE KASPER PLASMA TABLE OPERATOR Ot F41.9 ANXIETY DISORDER, UNSPECIFIED 01/07/2018 MATILDE KASPERP Ot G47.9 SLEEP DISORDER, UNSPECIFIED 01/07/2018 MATILDE KASPER PLASMA TABLE OPERATOR Ot K62.89 OTHER SPECIFIED DISEASES OF ANUS AND REC 01/07/2018 MATILDE KASPERP Ot K64.9 UNSPECIFIED HEMORRHOIDS 01/09/2018 MATILDE KASPER PLASMA TABLE OPERATOR Ot F17.210 NICOTINE DEPENDENCE, CIGARETTES, UNCOMPL 01/09/2018 RANJITH MATILDE PLASMA TABLE OPERATOR Ot F32.9 MAJOR DEPRESSIVE DISORDER, SINGLE EPISOD 01/09/2018 RANJITH MATILDE PLASMA TABLE OPERATOR Ot F41.9 ANXIETY DISORDER, UNSPECIFIED 01/09/2018 RANJITH, MATILDE PLASMA TABLE OPERATOR Ot G47.9 SLEEP DISORDER, UNSPECIFIED 01/09/2018 RANJITH, MATILDE PLASMA TABLE OPERATOR Ot K62.89 OTHER SPECIFIED DISEASES OF ANUS AND REC 01/09/2018 RANJITH, MATILDE PLASMA TABLE OPERATOR Ot K64.9 UNSPECIFIED HEMORRHOIDS 01/13/2018 RANJITH, MATILDE PLASMA TABLE OPERATOR Ot F17.210 NICOTINE DEPENDENCE, CIGARETTES, UNCOMPL 01/13/2018 RANJITH, MATILDE PLASMA TABLE OPERATOR Ot F32.9 MAJOR DEPRESSIVE DISORDER, SINGLE EPISOD 01/13/2018 RANJITH, MATILDE PLASMA TABLE OPERATOR Ot F41.9 ANXIETY DISORDER, UNSPECIFIED 01/13/2018 RANJITH, MATILDE PLASMA TABLE OPERATOR Ot G47.9 SLEEP DISORDER, UNSPECIFIED 01/13/2018 RANJITH, MATILDE PLASMA TABLE OPERATOR Ot K62.89 OTHER SPECIFIED DISEASES OF ANUS AND REC 01/13/2018 RANJITH, MATILDE PLASMA TABLE OPERATOR Ot K64.9 UNSPECIFIED HEMORRHOIDS 04/04/2018 SHADY SALDIVAR, CIPRIANO T Ot F17.210 NICOTINE DEPENDENCE, CIGARETTES, UNCOMPL 04/04/2018 CIPRIANO CARUSO MD T Ot F32.9 MAJOR DEPRESSIVE DISORDER, SINGLE EPISOD 04/04/2018 CIPRIANO CARUSO MD Ot F41.9 ANXIETY DISORDER, UNSPECIFIED 04/04/2018 CIPRIANO CARUSO MD T Ot F43.10 POST-TRAUMATIC STRESS DISORDER, UNSPECIF 04/04/2018 CIPRIANO CARUSO MD T Ot N39.0 URINARY TRACT INFECTION, SITE NOT SPECIF 04/04/2018 CIPRIANO CARUSO MD T Ot R10.2 PELVIC AND PERINEAL PAIN 04/06/2018 CIPRIANO CARUSO MD T Ot F17.210 NICOTINE DEPENDENCE, CIGARETTES, UNCOMPL 04/06/2018 CIPRIANO CARUSO MD Ot F32.9 MAJOR DEPRESSIVE DISORDER, SINGLE EPISOD 04/06/2018 CIPRIANO CARUSO MD T Ot F41.9 ANXIETY DISORDER, UNSPECIFIED 04/06/2018 CIPRIANO CARUSO MD T Ot F43.10 POST-TRAUMATIC STRESS DISORDER, UNSPECIF 04/06/2018 CIPRIANO CARUSO MD T Ot N39.0 URINARY TRACT INFECTION, SITE NOT SPECIF 04/06/2018 SHADY SALDIVAR, CIPRIANO T Ot R10.2 PELVIC AND PERINEAL PAIN 04/17/2018 BERNOT HUNG Ot F17.210 NICOTINE DEPENDENCE, CIGARETTES, UNCOMPL 04/17/2018 BERNOT HUNG Ot F32.9 MAJOR DEPRESSIVE DISORDER, SINGLE EPISOD 04/17/2018 BERNOT HUNG Ot F41.9 ANXIETY DISORDER, UNSPECIFIED 04/17/2018 BERNOT HUNG Ot F43.10 POST-TRAUMATIC STRESS DISORDER, UNSPECIF 04/17/2018 BERNOT HUNG Ot J06.9 ACUTE UPPER RESPIRATORY INFECTION, UNSPE 04/17/2018 BERNOT, HUNG Ot R05 COUGH 04/17/2018 BERNOT, HUNG Ot Z79.52 MCC (CURRENT) USE OF SYSTEMIC STER 04/19/2018 HUNG KRISHNAN Ot F17.210 NICOTINE DEPENDENCE, CIGARETTES, UNCOMPL 04/19/2018 TYSHAWN KRISHNANIS Ot F32.9 MAJOR DEPRESSIVE DISORDER, SINGLE EPISOD 04/19/2018 ARIELLA HUNG Ot F41.9 ANXIETY DISORDER, UNSPECIFIED 04/19/2018 BERNNESTOR, HUNG Ot F43.10 POST-TRAUMATIC STRESS DISORDER, UNSPECIF 04/19/2018 BERNNESTOR, HUNG Ot J06.9 ACUTE UPPER RESPIRATORY INFECTION, UNSPE 04/19/2018 COURTNEYOT, HUNG Ot R05 COUGH 04/19/2018 BERNOT, HUNG Ot Z79.52 MCC (CURRENT) USE OF SYSTEMIC STER 04/23/2018 ARIELLA HUNG Ot F17.210 NICOTINE DEPENDENCE, CIGARETTES, UNCOMPL 04/23/2018 ARIELLA HUNG Ot F32.9 MAJOR DEPRESSIVE DISORDER, SINGLE EPISOD 04/23/2018 BERNOT HUNG Ot F41.9 ANXIETY DISORDER, UNSPECIFIED 04/23/2018 BERNOT, HUNG Ot F43.10 POST-TRAUMATIC STRESS DISORDER, UNSPECIF 04/23/2018 BERNNESTOR HUNG Ot J06.9 ACUTE UPPER RESPIRATORY INFECTION, UNSPE 04/23/2018 BERNOT, HUNG Ot R05 COUGH 04/23/2018 BERNOT, HUNG Ot Z79.52 MCC (CURRENT) USE OF SYSTEMIC STER Procedures Code Description [place] [id number] TEST, URINE (IN- HOUSE) 02/21/2014 [id number] STREP A (IN-HOUSE) 02/21/2014 [id number] TEST, URINE (IN- HOUSE) 04/02/2014 Results Test [...] detection in urine sediment by light microscopy 05-24 NRG Crystals detection in urine sediment by [...] Status Pt. Type Provider Facility Loc./Unit Complaint [id number] 04/02/2014 14:24:00 04/02/2014 23:59:59 CLS Outpatient PAM KHAN APRN [id number] 02/21/2014 13:39:00 02/21/2014 23:59:59 CLS Outpatient ASHLEE WEATHERS APRN [id number] 04/17/2018 10:06:00 04/17/2018 12:12:00 DIS Emergency HUNG KRISHNAN [facility] ER COUGH/SOA [id number] 04/04/2018 03:18:00 04/04/2018 04:10:00 DIS Emergency SHADY SALDIVAR, CIPRIANO T [facility] ER PELVIC PAIN [id number] 01/07/2018 16:12:00 01/07/2018 17:40:00 DIS Emergency MATILDE KASPER [facility] ER RECTAL BLEEDING [id number] 01/22/2013 15:20:00 01/22/2013 23:59:59 CLS Outpatient [id number] 01/04/2018 08:20:00 01/04/2018 23:59:59 CLS Outpatient JUANA AVELAR [facility] [id number] 09/03/2017 10:10:34 ACT Unknown
[2018-06-12 23:27] LABS: BILIRUBIN,URINE NEGATIVE (NEGATIVE); CLARITY,URINE SLIGHTLY CLOUDY; COLOR,URINE YELLOW; GLUCOSE, URINE (UA) NEGATIVE (NEGATIVE); KETONES,URINE NEGATIVE (NEGATIVE); LEUKOCYTE ESTERASE ,URINE 1+ (NEGATIVE); NITRITE,URINE NEGATIVE (NEGATIVE); PH,URINE 7 (5-9); PROTEIN,URINE NEGATIVE (NEGATIVE); UROBILINOGEN,URINE NORMAL (NORMAL)
[2018-06-12] MEDS ORDERED: HYOSCYAMINE 0.125 MG (LEVSIN) TAB SL ONE (23:30)
[2018-06-12 23:35] LABS: BACTERIA,URINE TRACE /HPF; RBC,URINE >100 /HPF; WBC,URINE 0-2 /HPF
[2018-06-13] MEDS ORDERED: HYOS0.1283 SL (00:04)
--- NOTE | 2018-06-13 00:07 | ED GU-Female ---
General Chief Complaint: Cough/Cold/Flu Symptoms Stated Complaint: PAIN IN UTERUS SHOOTING UP LOWER BACK Nursing Triage Note: PT ARRIVES TO ED ROOM #9 WITH C/O UTERINE PAIN THAT RADIATES TO HER LOWER BACK. PT STATES THAT SHE HAS BEEN HAVING INCREASED MENSTRUAL PAIN THAT STARTED SINCE THE STARTED THE DEPO SHOT THREE YEARS AGO. PT STATES THAT SHE EXPERIENCED A MISCARRIAGE LAST WEEK 06/03 IN WHICH SHE HAD BLEEDING FOR TWO DAYS. PT STATES THAT SHE STARTED HER PERIOD TODAY AND THE PAIN IS 8/10 WITH NO RELIEF FROM HEATING PADS, IBUPROFEN, PAMPRIN, WARM BATHS, OR TYLENOL. PT STATES LAST MONTH SHE HAD TO TAKE PAIN PILLS, BUT EVEN THE PAIN PILLS DO NOT HELP. Nursing Sepsis Screen: No Definite Risk Source: patient Exam Limitations: no limitations History of Present Illness Date Seen by Provider: Jun 12, 2018 Time Seen by Provider: 23:01 Initial Comments This 22-year-old woman presents to the emergency room with complaints of pelvic cramping and pain with the start of her menses today. She reports having a miscarriage on June 03. She has seen Dr. Loredo since then and states he performed a pelvic exam and an ultrasound in the clinic. She reports no abnormalities were identified. She has been trying Pamprin and ibuprofen as well as a heating pad without sufficient improvement. She reports having escalation in menstrual pain over the past few months. She denies having any pain at all between her miscarriage and this morning. Allergies and Home Medications Allergies Coded Allergies: No Known Drug Allergies (Unverified , 03/15/09) Home Medications Azithromycin 250 Mg Tablet, 250 MG PO UD TAKE 2 TABLETS TODAY, THEN TAKE 1 TABLET DAILY FOR 4 MORE DAYS Prescribed by: HUNG KRISHNAN on 04/17/18 1120 Hyoscyamine Sulfate 0.125 Mg Tab.subl, 0.125 MG SL Q4H PRN for CRAMPS Prescribed by: CIPRIANO VEGA on 06/13/18 0004 Prednisone 10 Mg Tab.ds.pk, 10 MG PO UD Prescribed by: HUNG KRISHNAN on 04/17/18 1120 Patient Home Medication List Home Medication List Reviewed: Yes Review of Systems Review of Systems Constitutional: no symptoms reported EENTM: no symptoms reported Respiratory: no symptoms reported Cardiovascular: no symptoms reported Gastrointestinal: no symptoms reported Genitourinary: see HPI : No Musculoskeletal: no symptoms reported Skin: no symptoms reported Psychiatric/Neurological: No Symptoms Reported Endocrine: No Symptoms Reported Hematologic/Lymphatic: No Symptoms Reported Past Pdnwqsq-Pgalon-Akaeje Hx Past Med/Social Hx: Reviewed Nursing Past Med/Soc Hx Patient Social History Alcohol Use: Denies Use Recreational Drug Use: No Smoking Status: Current Everyday Smoker Type Used: Cigarettes 2nd Hand Smoke Exposure: No Recent Foreign Travel: No Contact w/Someone Who Travel: No Recent Infectious Disease Expo: No Recent Hopitalizations: No Physical Abuse: No Sexual Abuse: No Mistreated: No Fear: No Immunizations Up To Date Tetanus Booster (TDap): Unknown Seasonal Allergies Seasonal Allergies: No Past Medical History Surgeries: No Respiratory: No Cardiac: No Neurological: No Female Reproductive Disorders: Menstrual Problems Genitourinary: No Gastrointestinal: No Musculoskeletal: No Endocrine: No HEENT: No Cancer: No Psychosocial: Yes Sleep Difficulties, Anxiety, PTSD, Depression Integumentary: No Blood Disorders: No Adverse Reaction/Blood Tranf: No Physical Exam Vital Signs Vital Signs - First Documented 06/12/18 22:50 Temp 97.1 Pulse 90 Resp 18 B/P (MAP) 138/87 (104) Pulse Ox 95 O2 Delivery Room Air Capillary Refill : Less Than 3 Seconds Height, Weight, BMI Height: 5'8.00" Weight: 240lbs. oz. 108.216113lk; BMI Method:Stated General Appearance: WD/WN, mild distress HEENT: normal ENT inspection Neck: normal inspection Cardiovascular: regular rate, rhythm, no edema, no murmur Respiratory: lungs clear, normal breath sounds, no respiratory distress Gastrointestinal: normal bowel sounds, soft, tenderness (suprapubic region) Extremities: normal inspection, no pedal edema Neurologic/Psychiatric: rd project manager II-XII nml as tested, no motor/sensory deficits, alert, normal mood/affect, oriented x 3 Skin: normal color, warm/dry Progress/Results/Core Measures Suspected Sepsis Recent Fever Within 48 Hours: No Infection Criteria Present: None New/Unexplained Altered Menta: No Sepsis Screen: No Definite Risk SIRS Temperature:97.1 Pulse: 90 Respiratory Rate: 18 Blood Pressure 138 /87 Mean: 104 Results/Orders Lab Results Laboratory Tests Test 06/12/18 23:20 Range/Units Urine Color YELLOW Urine Clarity SLIGHTLY CLOUDY Urine pH 7 5-9 Urine Specific [place] 1.010 L 1.016-1.022 Urine Protein NEGATIVE NEGATIVE Urine Glucose (UA) NEGATIVE NEGATIVE Urine Ketones NEGATIVE NEGATIVE Urine Nitrite NEGATIVE NEGATIVE Urine Bilirubin NEGATIVE NEGATIVE Urine Urobilinogen NORMAL NORMAL MG/DL Urine Leukocyte Esterase 1+ H NEGATIVE Urine RBC (Auto) 5+ H NEGATIVE Urine RBC >100 H /HPF Urine WBC 0-2 /HPF Urine Squamous Epithelial Cells 2-5 /HPF Urine Crystals NONE /LPF Urine Bacteria TRACE /HPF Urine Casts NONE /LPF Urine Mucus SMALL H /LPF Urine Culture Indicated NO My Orders Orders - CIPRIANO CARUSO MD Ua Culture If Indicated (06/12/18 23:01) Urine Bedside (06/12/18 23:17) Hyoscyamine Sl Tablet (Levsin Sl Tablet) (06/12/18 23:30) Medications Given in ED Current Medications Medications Dose Ordered Sig/Connor Route Start Time Stop Time Status Last Admin Dose Admin Hyoscyamine Sulfate 0.25 mg ONCE ONCE SL 06/12/18 23:30 06/12/18 23:31 DC 06/12/18 23:35 0.25 MG Vital Signs/I&O 06/12/18 06/13/18 22:50 00:11 Temp 97.1 97.1 Pulse 90 71 Resp 18 18 B/P (MAP) 138/87 (104) 118/73 (88) Pulse Ox 95 98 O2 Delivery Room Air Room Air Capillary Refill : Less Than 3 Seconds Blood Pressure Mean: 104 Point of Care Testing Urine -Bedside: Negative Progress Note : Progress Note UA was unremarkable and bedside test was negative. Ultrasound and pelvic exam were not felt necessary as patient states these were recently done by Dr. Loredo. Levsin was given for the cramping which greatly improved her discomfort. She was dismissed home to outpatient follow-up again with Dr. Loredo. Departure Impression Primary Impression: Dysmenorrhea Additional Impression: Pelvic cramping Disposition: HOME, SELF-CARE Condition: Improved Departure-Patient Inst. Referrals: JACKIE CAMARENA DO (PCP/Family) Primary Care Physician Patient Instructions: Menstrual Cramps Add. Discharge Instructions: For pain may take ibuprofen up to 600 mg every 6 hours as needed. Add Tylenol ( acetaminophen) up to 1000 mg every 6 hours as needed for additional pain relief. For cramping you may use Levsin as prescribed. Follow-up with Dr. Loredo to review Pap smear results and to discuss further treatment of your painful periods. All discharge instructions reviewed with patient and/or family. Voiced understanding. Scripts Hyoscyamine Sulfate (Levsin-Sl) 0.125 Mg Tab.subl 0.125 MG SL Q4H PRN for CRAMPS, #10 TAB Prov: CIPRIANO CARUSO MD 06/13/18 Copy Copies To 1: JOSE L LOREDO MD, JOSHUA T MD Jun 13, 2018 00:06
[2018-06-13 00:11] VITALS: BP 118/73
== END 2018-06-13 00:11 | disposition home or self-care (01) ==
LOC: EDUNIT# 22:40 → ER 22:41
DX: N94.6 Dysmenorrhea, unspecified (principal); F41.9 Anxiety disorder, unspecified; F43.10 Post-traumatic stress disorder, unspecified; F32.9 Major depressive disorder, single episode, unspecified; F17.210 Nicotine dependence, cigarettes, uncomplicated; Z79.52 Long term (current) use of systemic steroids
CPT/HCPCS: 81000; 84703; 99283

== ENCOUNTER 2018-07-30 04:55 | Day surgery (SDC) | payer MEDICAID ==
[~2018-07-30] VITALS: Ht 172.7 cm; Wt 108.4 kg
[~2018-07-30 04:55] MED LIST changes: +HYOS0.1283 SL
--- OUTSIDE RECORDS SUMMARY | 2018-07-30 05:03 | XMS REPORT | Continuity of Care Document ---
Author Author [facility] Address Unknown Phone Unavailable Allergies Active Description Code Type Severity Reaction Onset Reported/Identified Relationship to Patient Clinical Status Yes No Known Drug Allergies [id number] Drug Allergy Mild N/A 03/15/2009 Medications There [...] DEPRESSIVE DISORDER, SINGLE EPISOD 01/07/2018 MATILDE KASPER LEAD MACHINIST Ot F41.9 ANXIETY DISORDER, UNSPECIFIED 01/07/2018 MATILDE KASPERP Ot G47.9 SLEEP DISORDER, UNSPECIFIED 01/07/2018 MATILDE KASPER LEAD MACHINIST Ot K62.89 OTHER SPECIFIED DISEASES OF ANUS AND REC 01/07/2018 MATILDE KASPERP Ot K64.9 UNSPECIFIED HEMORRHOIDS 01/09/2018 MATILDE KASPER LEAD MACHINIST Ot F17.210 NICOTINE DEPENDENCE, CIGARETTES, UNCOMPL 01/09/2018 RANJITH MATILDE LEAD MACHINIST Ot F32.9 MAJOR DEPRESSIVE DISORDER, SINGLE EPISOD 01/09/2018 RANJITH MATILDE LEAD MACHINIST Ot F41.9 ANXIETY DISORDER, UNSPECIFIED 01/09/2018 RANJITH, MATILDE LEAD MACHINIST Ot G47.9 SLEEP DISORDER, UNSPECIFIED 01/09/2018 RANJITH, MATILDE LEAD MACHINIST Ot K62.89 OTHER SPECIFIED DISEASES OF ANUS AND REC 01/09/2018 RANJITH, MATILDE LEAD MACHINIST Ot K64.9 UNSPECIFIED HEMORRHOIDS 01/13/2018 RANJITH, MATILDE LEAD MACHINIST Ot F17.210 NICOTINE DEPENDENCE, CIGARETTES, UNCOMPL 01/13/2018 RANJITH, MATILDE LEAD MACHINIST Ot F32.9 MAJOR DEPRESSIVE DISORDER, SINGLE EPISOD 01/13/2018 RANJITH, MATILDE LEAD MACHINIST Ot F41.9 ANXIETY DISORDER, UNSPECIFIED 01/13/2018 RANJITH, MATILDE LEAD MACHINIST Ot G47.9 SLEEP DISORDER, UNSPECIFIED 01/13/2018 RANJITH, MATILDE LEAD MACHINIST Ot K62.89 OTHER SPECIFIED DISEASES OF ANUS AND REC 01/13/2018 RANJITH, MATILDE LEAD MACHINIST Ot K64.9 UNSPECIFIED HEMORRHOIDS 04/04/2018 SHADY SALDIVAR, [...] SITE NOT SPECIF 04/06/2018 SHADY SALDIVAR, CIPRIANO Garcia Ot R10.2 PELVIC AND PERINEAL PAIN 04/17/2018 BERNOT, HUNG Ot F17.210 NICOTINE DEPENDENCE, CIGARETTES, UNCOMPL 04/17/2018 BERNOT HUNG Ot F32.9 MAJOR DEPRESSIVE DISORDER, SINGLE EPISOD 04/17/2018 BERNOT, HUNG Ot F41.9 ANXIETY DISORDER, UNSPECIFIED 04/17/2018 BERNOT, HUNG Ot F43.10 POST-TRAUMATIC STRESS DISORDER, UNSPECIF 04/17/2018 BERNOT, HUNG Ot J06.9 ACUTE UPPER RESPIRATORY INFECTION, UNSPE 04/17/2018 BERNOT, HUNG Ot R05 COUGH 04/17/2018 BERNOT, HUNG Ot Z79.52 SENIOR CARE (CURRENT) USE OF SYSTEMIC STER 04/19/2018 COURTNEYOT, HUNG Ot F17.210 NICOTINE DEPENDENCE, CIGARETTES, UNCOMPL 04/19/2018 ARIELLA HUNG Ot F32.9 MAJOR DEPRESSIVE DISORDER, SINGLE EPISOD 04/19/2018 BERNOT HUNG Ot F41.9 ANXIETY DISORDER, UNSPECIFIED 04/19/2018 BERNOT, HUNG Ot F43.10 POST-TRAUMATIC STRESS DISORDER, UNSPECIF 04/19/2018 BERNOT, HUNG Ot J06.9 ACUTE UPPER RESPIRATORY INFECTION, UNSPE 04/19/2018 BERNOT, HUNG Ot R05 COUGH 04/19/2018 BERNOT, HUNG Ot Z79.52 SENIOR CARE (CURRENT) USE OF SYSTEMIC STER 04/23/2018 BERNOT, HUNG Ot F17.210 NICOTINE DEPENDENCE, CIGARETTES, UNCOMPL 04/23/2018 ARIELLA HUNG Ot F32.9 MAJOR DEPRESSIVE DISORDER, SINGLE EPISOD 04/23/2018 BERNOT, HUNG Ot F41.9 ANXIETY DISORDER, UNSPECIFIED 04/23/2018 BERNOT, HUNG Ot F43.10 POST-TRAUMATIC STRESS DISORDER, UNSPECIF 04/23/2018 BERNOT HUNG Ot J06.9 ACUTE UPPER RESPIRATORY INFECTION, UNSPE 04/23/2018 BERNOT, HUNG Ot R05 COUGH 04/23/2018 BERNOT, HUNG Ot Z79.52 SENIOR CARE (CURRENT) USE OF SYSTEMIC STER 06/14/2018 SHADY SALDIVAR, CIPRIANO Garcia Ot F17.210 NICOTINE DEPENDENCE, CIGARETTES, UNCOMPL 06/14/2018 CIPRIANO CARUSO MD, Ot F32.9 MAJOR DEPRESSIVE DISORDER, SINGLE EPISOD 06/14/2018 CIPRIANO CARUSO MD, Ot F41.9 ANXIETY DISORDER, UNSPECIFIED 06/14/2018 CIPRIANO CARUSO MD, Ot F43.10 POST-TRAUMATIC STRESS DISORDER, UNSPECIF 06/14/2018 CIPRIANO CARUSO MD, Ot N94.6 DYSMENORRHEA, UNSPECIFIED 06/14/2018 CIPRIANO CARUSO MD, Ot R10.2 PELVIC AND PERINEAL PAIN 06/14/2018 CIPRIANO CARUSO MD, Ot Z79.52 SENIOR CARE (CURRENT) USE OF SYSTEMIC STER Procedures Code Description [place] [address] TEST, URINE (IN- HOUSE) 02/21/2014 19517 STREP A (IN-HOUSE) 02/21/2014 54804 TEST, URINE (IN- HOUSE) 04/02/2014 Results Test [...] SEE COMMEN NRG COLONY COUNT . NRG Complete urinalysis with reflex to culture - 06/12/18 23:20 Urine color determination YELLOW NRG Urine clarity determination SLIGHTLY CLOUDY NRG [...] NORMAL Urine leukocyte esterase detection by dipstick 1+ NEGATIVE Automated urine sediment erythrocyte count by microscopy (number/high power field) > [HPF] NRG Automated urine sediment leukocyte count by microscopy (number/high power field ) [HPF] NRG Bacteria detection in urine sediment by light microscopy TRACE NRG Squamous epithelial cells detection in urine sediment by light microscopy 2-5 NRG Crystals detection in urine sediment by light microscopy NONE NRG Casts detection in urine sediment by light microscopy NONE NRG Mucus detection in urine sediment by light microscopy SMALL NRG Complete urinalysis with reflex to culture NO NRG Encounters ACCT No. Visit Date/Time Discharge Status Pt. Type Provider Facility Loc./Unit Complaint [id number] 04/02/2014 14:24:00 04/02/2014 23:59:59 CLS Outpatient PAM KHAN APRN Daniel [id number] 02/21/2014 13:39:00 02/21/2014 23:59:59 CLS Outpatient ASHLEE WEATHERS APRN [id number] 06/12/2018 22:41:00 06/13/2018 00:11:00 DIS Outpatient SHADY SALDIVAR, CIPRIANO Garcia [facility] ER PAIN IN UTERUS SHOOTING UP LOWER BACK [id number] 04/17/2018 10:06:00 04/17/2018 12:12:00 DIS Emergency HUNG KRISHNAN [facility] ER COUGH/SOA [id number] 04/04/2018 03:18:00 04/04/2018 04:10:00 DIS Emergency SHADY SALDIVAR, CIPRIANO Garcia [facility] ER PELVIC PAIN [id number] 01/07/2018 16:12:00 01/07/2018 17:40:00 DIS Emergency MATILDE KASPER [facility] ER RECTAL BLEEDING [id number] 01/22/2013 15:20:00 01/22/2013 23:59:59 CLS Outpatient [id number] 01/04/2018 08:20:00 01/04/2018 23:59:59 CLS Outpatient VALENTINO JUANA [facility] [id number] 06/19/2018 18:18:00 ACT Unknown
[2018-07-30] MEDS ORDERED: NS IV 1000 ML 1,000 ML IV ONE (05:31)
--- NOTE | 2018-07-30 05:38 | ED Abdominal Pain ---
General Chief Complaint: Abdominal/GI Problems Stated Complaint: STOMACH PAIN;BACK PAIN Nursing Triage Note: Pt c/o RUQ abd pain starting at 2100 last night Sepsis Screen: No Definite Risk Source of Information: Patient Exam Limitations: No Limitations (CIPRIANO CARUSO MD) History of Present Illness Date Seen by Provider: Jul 30, 2018 Time Seen by Provider: 04:58 Initial Comments This 23-year-old woman presents to the emergency room with complaints of fairly sudden onset of sharp right flank and right upper quadrant pain radiating into her back. She has had associated nausea and vomiting. She is no longer nauseous now. Time of onset was approximately 21:00. She denies as she has not had intercourse since her LMP 3 weeks ago. She denies constipation , diarrhea, fever, or urinary changes. She reports having one prior episode of similar pain that was less intense. She denies any history of gallbladder disease or renal stones. She rates her pain as 9/10. (CIPRIANO CARUSO MD) Allergies and Home Medications Allergies Coded Allergies: No Known Drug Allergies (Unverified , 03/15/09) Home Medications Azithromycin 250 Mg Tablet, 250 MG PO UD TAKE 2 TABLETS TODAY, THEN TAKE 1 TABLET DAILY FOR 4 MORE DAYS Prescribed by: HUNG KRISHNAN on 04/17/18 1120 Hyoscyamine Sulfate 0.125 Mg Tab.subl, 0.125 MG SL Q4H PRN for CRAMPS Prescribed by: CIPRIANO MARAVILLA on 06/13/18 0004 Prednisone 10 Mg Tab.ds.pk, 10 MG PO UD Prescribed by: HUNG KRISHNAN on 04/17/18 1120 Patient Home Medication List Home Medication List Reviewed: Yes (CIPRIANO CARUSO MD) Review of Systems Review of Systems Constitutional: no symptoms reported EENTM: No Symptoms Reported Respiratory: No Symptoms Reported Cardiovascular: No Symptoms Reported Gastrointestinal: See HPI Genitourinary: No Symptoms Reported Musculoskeletal: no symptoms reported Skin: no symptoms reported Psychiatric/Neurological: No Symptoms Reported Endocrine: No Symptoms Reported Hematologic/Lymphatic: No Symptoms Reported (CIPRIANO CARUSO MD) Past Yktpycu-Mtripw-Vcaend Hx Patient Social History Alcohol Use: Rarely Uses Recreational Drug Use: No Type Used: Cigarettes 2nd Hand Smoke Exposure: No Recent Foreign Travel: No Contact w/Someone Who Travel: No Recent Infectious Disease Expo: No Recent Hopitalizations: No (CIPRIANO CARUSO MD) Immunizations Up To Date Tetanus Booster (TDap): Unknown (CIPRIANO CARUSO MD) Seasonal Allergies Seasonal Allergies: No (CIPRIANO CARUSO MD) Past Medical History Surgeries: No Respiratory: No Cardiac: No Neurological: No : No Last Menstrual Period: Jul 09, 2018 Female Reproductive Disorders: Menstrual Problems Genitourinary: No Gastrointestinal: No Musculoskeletal: No Endocrine: No HEENT: No Cancer: No Psychosocial: Yes Sleep Difficulties, Anxiety, PTSD, Depression Integumentary: No Blood Disorders: No Adverse Reaction/Blood Tranf: No (CIPRIANO CARUSO MD) Physical Exam Vital Signs Vital Signs - First Documented 07/30/18 05:12 Temp 97.0 Pulse 78 Resp 18 B/P (MAP) 133/92 (106) Pulse Ox 98 O2 Delivery Room Air (KITTY UREÑA MD) Vital Signs Capillary Refill : Less Than 3 Seconds (CIPRIANO CARUSO MD) Height/Weight/BMI Height: 5'8.00" Weight: 200lbs. oz. 90.600356gk; BMI Method:Stated General Appearance: WD/WN, mild distress HEENT: PERRL/EOMI, normal ENT inspection Neck: normal inspection Respiratory: lungs clear, normal breath sounds, no respiratory distress, no accessory muscle use Cardiovascular: regular rate, rhythm, no edema, no murmur Gastrointestinal: normal bowel sounds, soft, tenderness (epigastrium and right upper quadrant) Extremities: normal inspection, no pedal edema Back: CVA tenderness (R) Neurologic/Psychiatric: digester hand II-XII nml as tested, no motor/sensory deficits, alert, normal mood/affect, oriented x 3 Skin: normal color, warm/dry (CIPRIANO CARUSO MD) Progress/Results/Core Measures Results/Orders Lab Results Laboratory Tests Test 07/30/18 05:45 07/30/18 06:00 Range/Units Urine Color YELLOW Urine Clarity VERY CLOUDY H Urine pH 7 5-9 Urine Specific [place] 1.010 L 1.016-1.022 Urine Protein NEGATIVE NEGATIVE Urine Glucose (UA) NEGATIVE NEGATIVE Urine Ketones NEGATIVE NEGATIVE Urine Nitrite NEGATIVE NEGATIVE Urine Bilirubin NEGATIVE NEGATIVE Urine Urobilinogen NORMAL NORMAL MG/DL Urine Leukocyte Esterase 1+ H NEGATIVE Urine RBC (Auto) NEGATIVE NEGATIVE Urine RBC NONE /HPF Urine WBC RARE /HPF Urine Squamous Epithelial Cells RARE /HPF Urine Crystals PRESENT H /LPF Urine Amorphous Sediment LARGE DAMON URATES H /LPF Urine Bacteria TRACE /HPF Urine Casts NONE /LPF Urine Mucus NEGATIVE /LPF Urine Culture Indicated NO White Blood Count 10.7 4.3-11.0 10^3/uL Red Blood Count 4.81 4.35-5.85 10^6/uL Hemoglobin 13.7 11.5-16.0 G/DL Hematocrit 40 35-52 % Mean Corpuscular Volume 84 80-99 FL Mean Corpuscular Hemoglobin 29 25-34 PG Mean Corpuscular Hemoglobin Concent 34 32-36 G/DL Red Cell Distribution Width 12.5 10.0-14.5 % Platelet Count 324 130-400 10^3/uL Mean Platelet Volume 10.4 7.4-10.4 FL Neutrophils (%) (Auto) 60 42-75 % Lymphocytes (%) (Auto) 29 12-44 % Monocytes (%) (Auto) 9 0-12 % Eosinophils (%) (Auto) 2 0-10 % Basophils (%) (Auto) 0 0-10 % Neutrophils # (Auto) 6.4 1.8-7.8 X 10^3 Lymphocytes # (Auto) 3.1 1.0-4.0 X 10^3 Monocytes # (Auto) 0.9 0.0-1.0 X 10^3 Eosinophils # (Auto) 0.2 0.0-0.3 10^3/uL Basophils # (Auto) 0.0 0.0-0.1 10^3/uL Sodium Level 142 135-145 MMOL/L Potassium Level 4.0 3.6-5.0 MMOL/L Chloride Level 108 H 98-107 MMOL/L Carbon Dioxide Level 22 21-32 MMOL/L Anion Gap 12 5-14 MMOL/L Blood Urea Nitrogen 12 7-18 MG/DL Creatinine 0.82 0.60-1.30 MG/DL Estimat Glomerular Filtration Rate > 60 BUN/Creatinine Ratio 15 Glucose Level 116 H 70-105 MG/DL Calcium Level 9.8 8.5-10.1 MG/DL Corrected Calcium 9.4 8.5-10.1 MG/DL Total Bilirubin 0.3 0.1-1.0 MG/DL Aspartate Amino Transf (AST/SGOT) 15 5-34 U/L Alanine Aminotransferase (ALT/SGPT) 14 0-55 U/L Alkaline Phosphatase 94 40-136 U/L Total Protein 7.2 6.4-8.2 GM/DL Albumin 4.5 3.2-4.5 GM/DL Lipase 26 8-78 U/L Serum Test, Qualitative NEGATIVE NEGATIVE (KITTY UREÑA MD) My Orders Orders - KITTY UREÑA MD Fentanyl Injection (Sublimaze Injection (07/30/18 06:35) (KITTY UREÑA MD) Medications Given in ED Current Medications Medications Dose Ordered Sig/Connor Route Start Time Stop Time Status Last Admin Dose Admin Fentanyl Citrate 50 mcg ONCE ONCE IVP 07/30/18 05:45 07/30/18 05:46 DC 07/30/18 06:13 50 MCG Sodium Chloride 1,000 ml @ 0 mls/hr Q0M ONCE IV 07/30/18 05:31 07/30/18 05:33 DC 07/30/18 06:13 1,000 MLS/HR (KITTY UREÑA MD) Vital Signs/I&O 07/30/18 05:12 Temp 97.0 Pulse 78 Resp 18 B/P (MAP) 133/92 (106) Pulse Ox 98 O2 Delivery Room Air (KITTY UREÑA MD) Blood Pressure Mean: 106 Progress Progress Note : Time: 05:37 Progress Note Patient seen and examined. Labs were ordered. IV fluids will be administered. Fentanyl was ordered for pain. Anticipate obtaining a gallbladder ultrasound versus CT scan with renal stone rule out. (CIPRIANO CARUSO MD) Progress Note : Progress Note 0645: Assumed care from Dr. Maravilla. UA does not show blood. Ultrasound will be ordered. Patient was complaining of some continued pain. She is currently in the bed with her significant other splinting. She was given fentanyl 50 g IV. Ultrasound will be available at 8 a.m. No other significant changes currently. 0805: Patient is an ultrasound. No significant abnormalities on labs. Pain is improved since last dose medicine. Monitor patient. 0827: I did discuss the case with Dr. Metz as patient does have 2 cm stone as well as some gallbladder wall thickening. He will take her for surgery today. I did discuss this with patient and significant other who agree. 0834: Anticipate same day surgery procedure today. Dr. Metz agrees. (KITTY UREÑA MD) Diagnostic Imaging Diagonstic Imaging: Ultrasound Plain Films/CT/US/NM/MRI: abdomen Comments 2 cm Gallstones with mild gallbladder wall thickening preliminary per report. Reviewed: Reviewed by Me (KITTY UREÑA MD) Departure Communication (Admissions) Time/Spoke to Admitting Phy: 08:27 (KITTY UREÑA MD) Impression Primary Impression: Cholelithiasis Qualified Codes: K80.01 - Calculus of gallbladder with acute cholecystitis with obstruction Disposition: ADMITTED INPATIENT Condition: Stable Admissions Decision to Admit Reason: Admit from ER (General) Decision to Admit/Date: Jul 30, 2018 Time/Decision to Admit Time: 08:27 (KITTY UREÑA MD) Departure-Patient Inst. Referrals: JACKIE CAMARENA DO (PCP/Family) Primary Care Physician CIPRIANO CARUSO MD Jul 30, 2018 05:38 KITTY UREÑA MD Jul 30, 2018 08:08
[2018-07-30] MEDS ORDERED: fentaNYL INJECTION 100 MCG/2 ML AMP IVP ONE (05:45)
--- NOTE | 2018-07-30 05:55 | NUR ---
2 unsuccessful IV attempts per this RN
[2018-07-30 06:02] LABS: BILIRUBIN,URINE NEGATIVE (NEGATIVE); CLARITY,URINE VERY CLOUDY; COLOR,URINE YELLOW; GLUCOSE, URINE (UA) NEGATIVE (NEGATIVE); KETONES,URINE NEGATIVE (NEGATIVE); LEUKOCYTE ESTERASE ,URINE 1+ (NEGATIVE); NITRITE,URINE NEGATIVE (NEGATIVE); PH,URINE 7 (5-9); PROTEIN,URINE NEGATIVE (NEGATIVE); UROBILINOGEN,URINE NORMAL (NORMAL)
[2018-07-30 06:08] LABS: BASOPHILS % (AUTO) 0 % (0-10); EOSINOPHILS # (AUTO) 0.2 10^3/uL (0.0-0.3); EOSINOPHILS % (AUTO) 2 % (0-10); HEMATOCRIT 40 % (35-52); HEMOGLOBIN 13.7 G/DL (11.5-16.0); LYMPHOCYTES # (AUTO) 3.1 X 10^3 (1.0-4.0); LYMPHOCYTES % (AUTO) 29 % (12-44); MEAN CORPUSCULAR HEMOGLOBIN 29 PG (25-34); MEAN CORPUSCULAR HGB CONC 34 G/DL (32-36); MEAN CORPUSCULAR VOLUME 84 FL (80-99); MEAN PLATELET VOLUME 10.4 FL (7.4-10.4); MONOCYTES # (AUTO) 0.9 X 10^3 (0.0-1.0); MONOCYTES % (AUTO) 9 % (0-12); NEUTROPHILS # (AUTO) 6.4 X 10^3 (1.8-7.8); NEUTROPHILS % (AUTO) 60 % (42-75); PLATELET COUNT 324 10^3/uL (130-400); RED BLOOD COUNT 4.81 10^6/uL (4.35-5.85); RED CELL DISTRIBUTION WIDTH 12.5 % (10.0-14.5); WHITE BLOOD COUNT 10.7 10^3/uL (4.3-11.0)
[2018-07-30 06:11] LABS: AMORPHOUS SEDIMENT,UR LARGE AMOR URATES /LPF; BACTERIA,URINE TRACE /HPF; SQUAMOUS EPITHELIAL CELL,UR RARE /HPF; WBC,URINE RARE /HPF
--- NOTE | 2018-07-30 06:32 | NUR ---
Pt reporting pain improved after receiving fentanyl but pain is now returning. Dr Hicks notified.
[2018-07-30 06:34] LABS: ALANINE AMINOTRANSFERASE 14 U/L (0-55); ALBUMIN 4.5 GM/DL (3.2-4.5); ALKALINE PHOSPHATASE 94 U/L (40-136); BILIRUBIN,TOTAL 0.3 MG/DL (0.1-1.0); BUN/CREATININE RATIO 15; CALCIUM 9.8 MG/DL (8.5-10.1); CARBON DIOXIDE 22 MMOL/L (21-32); CHLORIDE 108 MMOL/L (98-107); CREATININE SERUM 0.82 MG/DL (0.60-1.30); GFR ESTIMATED > 60; GLUCOSE 116 MG/DL (70-105); LIPASE 26 U/L (8-78); SODIUM 142 MMOL/L (135-145); TOTAL PROTEIN 7.2 GM/DL (6.4-8.2)
[2018-07-30] MEDS ORDERED: fentaNYL INJECTION 100 MCG/2 ML AMP IVP STA ×2 (06:35→09:03)
--- NOTE | 2018-07-30 06:46 | NUR ---
Pt updated on plan of care and expected wait times for ultrasound. Pt verbalized understanding.
--- NOTE | 2018-07-30 08:39 | Diagnostic Imaging Report ---
PROCEDURE: US Gallbladder. TECHNIQUE: Multiple real-time grayscale images were obtained over the right upper quadrant in various projections. INDICATION: Right upper quadrant abdominal pain. COMPARISON: None. FINDINGS: Normal echogenicity of the liver with no focal mass or fluid collection. No intrahepatic biliary ductal dilatation. The common bile duct measures 0.3 cm in diameter. There is a shadowing stone in the neck of the gallbladder measuring up to 2.1 cm. Gallbladder wall is mildly thickened, measuring up to 0.5 cm. No pericholecystic fluid. Negative sonographic Arce sign. Patent IVC. The visualized portions of the pancreas are unremarkable. The right kidney measures 10.1 cm. No right renal mass, cyst, shadowing stone or hydronephrosis. IMPRESSION: Shadowing gallstone in the neck of the gallbladder measuring up to 2.1 cm. The gallbladder wall is mildly thickened up to 0.5 cm. No pericholecystic fluid. Negative sonographic Arce sign. HIDA scan may be helpful for further evaluation. Dictated by: Dictated on workstation # [id number]
--- OUTSIDE RECORDS SUMMARY | 2018-07-30 08:48 | XMS REPORT | Continuity of Care Document ---
Author Author [facility] Address Unknown Phone Unavailable Allergies Active Description Code Type Severity Reaction Onset Reported/Identified Relationship to Patient Clinical Status Yes No Known Drug Allergies [id number] Drug Allergy Mild N/A 03/15/2009 Medications There [...] APRN A V65.45 STD COUNSELING 04/02/2014 PAM HKAN APRN A V72.41 TEST NEGATIVE RESULT 01/07/2018 MATILDE KASPERP Ot F17.210 NICOTINE DEPENDENCE, CIGARETTES, UNCOMPL 01/07/2018 MATILDE KASPERP Ot F32.9 MAJOR DEPRESSIVE DISORDER, SINGLE EPISOD 01/07/2018 MATILDE KASPER GLASSWARE ENGRAVER Ot F41.9 ANXIETY DISORDER, UNSPECIFIED 01/07/2018 MATILDE KASPERP Ot G47.9 SLEEP DISORDER, UNSPECIFIED 01/07/2018 MATILDE KASPER GLASSWARE ENGRAVER Ot K62.89 OTHER SPECIFIED DISEASES OF ANUS AND REC 01/07/2018 MATILDE KASPERP Ot K64.9 UNSPECIFIED HEMORRHOIDS 01/09/2018 MATILDE KASPER GLASSWARE ENGRAVER Ot F17.210 NICOTINE DEPENDENCE, CIGARETTES, UNCOMPL 01/09/2018 RANJITH MATILDE GLASSWARE ENGRAVER Ot F32.9 MAJOR DEPRESSIVE DISORDER, SINGLE EPISOD 01/09/2018 RANJITH MATILDE GLASSWARE ENGRAVER Ot F41.9 ANXIETY DISORDER, UNSPECIFIED 01/09/2018 RANJITH, MATILDE GLASSWARE ENGRAVER Ot G47.9 SLEEP DISORDER, UNSPECIFIED 01/09/2018 RANJITH, MATILDE GLASSWARE ENGRAVER Ot K62.89 OTHER SPECIFIED DISEASES OF ANUS AND REC 01/09/2018 RANJITH, MATILDE GLASSWARE ENGRAVER Ot K64.9 UNSPECIFIED HEMORRHOIDS 01/13/2018 RANJITH, MATILDE GLASSWARE ENGRAVER Ot F17.210 NICOTINE DEPENDENCE, CIGARETTES, UNCOMPL 01/13/2018 RANJITH, MATILDE GLASSWARE ENGRAVER Ot F32.9 MAJOR DEPRESSIVE DISORDER, SINGLE EPISOD 01/13/2018 RANJITH, MATILDE GLASSWARE ENGRAVER Ot F41.9 ANXIETY DISORDER, UNSPECIFIED 01/13/2018 RANJITH, MATILDE GLASSWARE ENGRAVER Ot G47.9 SLEEP DISORDER, UNSPECIFIED 01/13/2018 RANJITH, MATILDE GLASSWARE ENGRAVER Ot K62.89 OTHER SPECIFIED DISEASES OF ANUS AND REC 01/13/2018 RANJITH, MATILDE GLASSWARE ENGRAVER Ot K64.9 UNSPECIFIED HEMORRHOIDS 04/04/2018 SHADY SALDIVAR, [...] R05 COUGH 04/17/2018 BERNOT, HUNG Ot Z79.52 JAIL (CURRENT) USE OF SYSTEMIC STER 04/19/2018 COURTNEYOT, HUNG Ot F17.210 NICOTINE DEPENDENCE, CIGARETTES, UNCOMPL 04/19/2018 ARIELLA HUNG Ot F32.9 MAJOR DEPRESSIVE DISORDER, SINGLE EPISOD 04/19/2018 BERNOT HUNG Ot F41.9 ANXIETY DISORDER, UNSPECIFIED 04/19/2018 BERNOT, HUNG Ot F43.10 POST-TRAUMATIC STRESS DISORDER, UNSPECIF 04/19/2018 BERNOT, HUNG Ot J06.9 ACUTE UPPER RESPIRATORY INFECTION, UNSPE 04/19/2018 BERNOT, HUNG Ot R05 COUGH 04/19/2018 BERNOT, HUNG Ot Z79.52 JAIL (CURRENT) USE OF SYSTEMIC STER 04/23/2018 BERNOT, HUNG Ot F17.210 NICOTINE DEPENDENCE, CIGARETTES, UNCOMPL 04/23/2018 ARIELLA HUNG Ot F32.9 MAJOR DEPRESSIVE DISORDER, SINGLE EPISOD 04/23/2018 BERNOT, HUNG Ot F41.9 ANXIETY DISORDER, UNSPECIFIED 04/23/2018 BERNOT, HUNG Ot F43.10 POST-TRAUMATIC STRESS DISORDER, UNSPECIF 04/23/2018 BERNOT HUNG Ot J06.9 ACUTE UPPER RESPIRATORY INFECTION, UNSPE 04/23/2018 BERNOT, HUNG Ot R05 COUGH 04/23/2018 BERNOT, HUNG Ot Z79.52 JAIL (CURRENT) USE OF SYSTEMIC STER 06/14/2018 SHADY [...] PAIN 06/14/2018 CIPRIANO CARUSO MD, Ot Z79.52 JAIL (CURRENT) USE OF SYSTEMIC STER Procedures Code Description [place] [address] TEST, URINE (IN- HOUSE) 02/21/2014 12934 STREP A (IN-HOUSE) 02/21/2014 55531 TEST, URINE (IN- HOUSE) 04/02/2014 Results Test [...] Status Pt. Type Provider Facility Loc./Unit Complaint [id number] 04/02/2014 14:24:00 04/02/2014 23:59:59 CLS Outpatient PAM KHAN APRN Daniel [id number] 02/21/2014 13:39:00 02/21/2014 23:59:59 CLS Outpatient ASHLEE WEATHERS APRN [id number] 06/12/2018 22:41:00 06/13/2018 00:11:00 DIS Outpatient SHADY SALDIVAR, CIPRIANO Garcia [facility] ER PAIN IN UTERUS SHOOTING UP LOWER BACK [id number] 04/17/2018 10:06:00 04/17/2018 12:12:00 DIS Emergency HUNG KRISHNAN [facility] ER COUGH/SOA [id number] 04/04/2018 03:18:00 04/04/2018 04:10:00 DIS Emergency SHADY SALDIVAR, CIPRIANO Garcia [facility] ER PELVIC PAIN [id number] 01/07/2018 16:12:00 01/07/2018 17:40:00 DIS Emergency MATILDE KASPER [facility] ER RECTAL BLEEDING [id number] 01/22/2013 15:20:00 01/22/2013 23:59:59 CLS Outpatient [id number] 01/04/2018 08:20:00 01/04/2018 23:59:59 CLS Outpatient [facility] [id number] 06/19/2018 18:18:00 ACT Unknown
[2018-07-30 10:30] VITALS: BP 121/75
--- NOTE | 2018-07-30 10:30 | NUR ---
TO AMB SURG FROM ED PER WC WITH FAMILY AND ED STAFF X2. PHONE REPORT RECEIVED FROM Aleida ELIAS RN.
--- NOTE | 2018-07-30 10:57 | Progress Note-Pre Operative ---
Pre-Operative Progress Note H&P Reviewed The H&P was reviewed, patient examined and no changes noted. Date Seen by Provider: Jul 30, 2018 Time Seen by Provider: 10:00 Date H&P Reviewed: Jul 30, 2018 Time H&P Reviewed: 10:00 Pre-Operative Diagnosis: acute on chronic calculous cholecystitis. JANELL CARRILLO MD Jul 30, 2018 10:57
[2018-07-30] MEDS ORDERED: HYDR-34 PO (10:58)
--- NOTE | 2018-07-30 10:59 | Discharge Inst-Surgical ---
D/C Lap Instructions-GERARDO New, Converted, or Re-Newed RX: RX on Chart Follow Up Appt in 2 weeks Activity as tolerated No driving for 24 hours No [address] while on pain medications Incentive Spirometry use every 2 hours while awake Regular Diet Symptoms to Report: Fever over 101 degree F, Nausea/Vomiting Infection Signs and Symptoms to report: Increased redness, Foul odor of wound, Increased drainage Bathing instructions: May shower Operative Area Clean/Dry; Keep incision clean/dry If any problems/questions: Contact your physician or go to Emergency Room JANELL CARRILLO MD Jul 30, 2018 10:59
[2018-07-30] MEDS ORDERED: oxyCODONE/APAP 5/325MG (PERCOCET 5) TABLET PO PRN (11:00)
[2018-07-30] MEDS ORDERED: ONDANSETRON 4 MG/2 ML (SDV) Z0FRAN IVP PRN ×2 (11:00→14:45)
[2018-07-30] MEDS ORDERED: ACETAMINOPHEN 325 MG TABLET PO PRN (11:00)
[2018-07-30] MEDS ORDERED: morphine INJ 10 MG/ML 1ML (SYR OR VIAL) IVP PRN (11:00)
[2018-07-30] MEDS ORDERED: ceFAZolin 2 GM IV Premixed 50 ML IV ONE (11:15)
[2018-07-30] MEDS ORDERED: BUP/EPI 0.5% 1:200,000 (SENSORCAINE) 30 ML VIAL ONE (11:18)
[2018-07-30] MEDS: LACTATED RINGERS 1,000 ML IV PRN ×2 (11:30→13:45)
--- NOTE | 2018-07-30 11:52 | History & Physical-Surgical ---
HPO-Surgical History of Present Illness Chief Complaint: Pt c/o RUQ abd pain starting at 2100 last night. She reports that the pain was sharp in nature and was the worst episode she has had. She reports that it initially started 2 months ago and has intermittent episodes of epigastric and RUQ pain but not as severe. She did report nause and vomiting last night. She also reports reflux and that the pain does radiate towards her back. She denied any fever or chills. She presented to the ER this morning where a gallbladder ultrasound was performed which showed a gallstone as well as gallbladder wall thickening. Diagnosis/Surgical Indication: acute on chronic calculous cholecystitis. Procedure: Laparoscopic Cholecystectomy Date of Surgery: Jul 30, 2018 Weight (Pounds): 200 Height (Feet): 5 Height (Inches): 8.00 Allergies and Home Medications Allergies Coded Allergies: No Known Drug Allergies (Unverified , 03/15/09) Home Medications Azithromycin 250 Mg Tablet, 250 MG PO UD TAKE 2 TABLETS TODAY, THEN TAKE 1 TABLET DAILY FOR 4 MORE DAYS Prescribed by: HUNG KRISHNAN on 04/17/18 1120 Hydrocodone Bit/Acetaminophen 1 Ea Tablet, 1 EACH PO Q4H PRN for PAIN-MODERATE Prescribed by: JANELL CARRILLO on 07/30/18 1058 Hyoscyamine Sulfate 0.125 Mg Tab.subl, 0.125 MG SL Q4H PRN for CRAMPS Prescribed by: CIPRIANO VEGA on 06/13/18 0004 Prednisone 10 Mg Tab.ds.pk, 10 MG PO UD Prescribed by: HUNG KRISHNAN on 04/17/18 1120 Patient Home Medication List Home Medication List Reviewed: Yes Past Xastccg-Ksksds-Nnqyjz Hx Patient Social History Alcohol Use: Rarely Uses Recreational Drug Use: No Smoking Status: Current Everyday Smoker Type Used: Cigarettes 2nd Hand Smoke Exposure: No Recent Foreign Travel: No Contact w/other who traveled: No Recent Hopitalizations: No Recent Infectious Disease Expo: No Immunizations Up To Date Tetanus Booster (TDap): Unknown Seasonal Allergies Seasonal Allergies: No Surgeries No Respiratory No Cardiovascular No Neurological No Reproductive System : No Last Menstrual Period: Jul 09, 2018 Female Reproductive Disorders: Menstrual Problems Genitourinary No Gastrointestinal No Musculoskeletal No Endocrine History of Endocrine Disorders: No HEENT History of HEENT Disorders: No Cancer No Psychosocial History of Psychiatric Problem: Yes Behavioral Health Disorders: Sleep Difficulties, Anxiety, PTSD, Depression Integumentary History of Skin or Integumenta: No Blood Transfusions History of Blood Disorders: No Adverse Reaction to a Blood Tr: No Exam Vital Signs Vital Signs 07/30/18 07/30/18 05:12 10:30 Temp 97.0 Pulse 76 Resp 20 B/P (MAP) 129/71 (90) Pulse Ox 98 O2 Delivery Room Air Capillary Refill : Less Than 3 Seconds Labs Laboratory Tests Test 07/30/18 05:45 07/30/18 06:00 Range/Units Urine Color YELLOW Urine Clarity VERY CLOUDY H Urine pH 7 5-9 Urine Specific [place] 1.010 L 1.016-1.022 Urine Protein NEGATIVE NEGATIVE Urine Glucose (UA) NEGATIVE NEGATIVE Urine Ketones NEGATIVE NEGATIVE Urine Nitrite NEGATIVE NEGATIVE Urine Bilirubin NEGATIVE NEGATIVE Urine Urobilinogen NORMAL NORMAL MG/DL Urine Leukocyte Esterase 1+ H NEGATIVE Urine RBC (Auto) NEGATIVE NEGATIVE Urine RBC NONE /HPF Urine WBC RARE /HPF Urine Squamous Epithelial Cells RARE /HPF Urine Crystals PRESENT H /LPF Urine Amorphous Sediment LARGE DAMON URATES H /LPF Urine Bacteria TRACE /HPF Urine Casts NONE /LPF Urine Mucus NEGATIVE /LPF Urine Culture Indicated NO White Blood Count 10.7 4.3-11.0 10^3/uL Red Blood Count 4.81 4.35-5.85 10^6/uL Hemoglobin 13.7 11.5-16.0 G/DL Hematocrit 40 35-52 % Mean Corpuscular Volume 84 80-99 FL Mean Corpuscular Hemoglobin 29 25-34 PG Mean Corpuscular Hemoglobin Concent 34 32-36 G/DL Red Cell Distribution Width 12.5 10.0-14.5 % Platelet Count 324 130-400 10^3/uL Mean Platelet Volume 10.4 7.4-10.4 FL Neutrophils (%) (Auto) 60 42-75 % Lymphocytes (%) (Auto) 29 12-44 % Monocytes (%) (Auto) 9 0-12 % Eosinophils (%) (Auto) 2 0-10 % Basophils (%) (Auto) 0 0-10 % Neutrophils # (Auto) 6.4 1.8-7.8 X 10^3 Lymphocytes # (Auto) 3.1 1.0-4.0 X 10^3 Monocytes # (Auto) 0.9 0.0-1.0 X 10^3 Eosinophils # (Auto) 0.2 0.0-0.3 10^3/uL Basophils # (Auto) 0.0 0.0-0.1 10^3/uL Sodium Level 142 135-145 MMOL/L Potassium Level 4.0 3.6-5.0 MMOL/L Chloride Level 108 H 98-107 MMOL/L Carbon Dioxide Level 22 21-32 MMOL/L Anion Gap 12 5-14 MMOL/L Blood Urea Nitrogen 12 7-18 MG/DL Creatinine 0.82 0.60-1.30 MG/DL Estimat Glomerular Filtration Rate > 60 BUN/Creatinine Ratio 15 Glucose Level 116 H 70-105 MG/DL Calcium Level 9.8 8.5-10.1 MG/DL Corrected Calcium 9.4 8.5-10.1 MG/DL Total Bilirubin 0.3 0.1-1.0 MG/DL Aspartate Amino Transf (AST/SGOT) 15 5-34 U/L Alanine Aminotransferase (ALT/SGPT) 14 0-55 U/L Alkaline Phosphatase 94 40-136 U/L Total Protein 7.2 6.4-8.2 GM/DL Albumin 4.5 3.2-4.5 GM/DL Lipase 26 8-78 U/L Serum Test, Qualitative NEGATIVE NEGATIVE General Appearance: Alert, Oriented X3, Cooperative, No Acute Distress HEENT: Atraumatic, PERRLA Respiratory: Clear to Auscultation, Normal Air Movement Cardiovascular: Regular Rate, No Murmurs Abdominal: Normal Bowel Sounds, Soft, Other (Tenderness Epigastric and RUQ region) Extremities: No Clubbing, No Cyanosis, No Edema, Normal Pulses, No Tenderness/ Swelling Skin: No Rashes, No Breakdown, No Significant Lesion Neuro: Normal Gait, Normal Speech Psych/Mental Status: Mental Status NL, Mood NL Assessment/Plan Assessment and Plan A 23 year old female with acute on chronic calculous cholecystitis. At this time we will proceed with a laparoscopic cholecystectomy. The risks, benefits, and home care instructions were explained to the patient. The patient verbalized understanding of instructions and agreed to proceed as planned. At this time, we will proceed with a laparoscopic cholecystectomy. Once patient has adequate pain control with no nausea or vomiting, can tolerate clear liquids and ambulate, we will discharge her home. Admission Diagnosis Acute on chronic calculous cholecystitis Copy Copies To 1: KIDJANELL King MD, DUSTIN L WEAPONS OFFICER Jul 30, 2018 11:52
[2018-07-30] MEDS ORDERED: SEVOFLURANE (ULTANE) 15 ML INHAL SOLN ONE ×2 (12:10→14:33)
[2018-07-30] MEDS ORDERED: LIDOCAINE PF 2% 5 ML (XYLOCAINE) VIAL ONE (12:10)
[2018-07-30] MEDS ORDERED: GLYCOPYRROLATE 0.2 MG/ML (ROBINUL) 2 ML VIAL ONE (12:10)
[2018-07-30] MEDS ORDERED: ROCURONIUM 10 MG/ML 5 ML SYRINGE IV ONE (12:10)
[2018-07-30] MEDS ORDERED: NEOSTIGMINE 1 MG/ML 5 ML SYRINGE ONE (12:10)
[2018-07-30] MEDS ORDERED: DEXAMETHASONE 10 MG/ML (DECADRON) 1 ML VIAL ONE (12:10)
[2018-07-30] MEDS ORDERED: ONDANSETRON 4 MG/2 ML (SDV) Z0FRAN ONE (12:10)
[2018-07-30] MEDS ORDERED: proPOfol 200 MG/20 ML (DIPRIVAN) VIAL IV ONE (12:10)
[2018-07-30] MEDS ORDERED: fentaNYL INJECTION 250 MCG/5 ML AMP ONE (12:11)
[2018-07-30] MEDS ORDERED: MIDAZOLAM 2 MG/2 ML (VERSED) VIAL ONE (12:11)
--- NOTE | 2018-07-30 14:12 | Progress Note-Post Operative ---
Post-Operative Progess Note Surgeon (s)/Schedule Checker (s) Surgeon JANELL CARRILLO MD Schedule Checker: ac guidry LIFE EDUCATOR Pre-Operative Diagnosis acute on chronic calculous cholecystitis. Post-Operative Diagnosis same Procedure & Operative Findings Date of Procedure 07/30/18 Procedure Performed/Findings laparoscopic cholecystectomy Anesthesia Type GET Estimated Blood Loss Estimated blood loss (mL): minimal Specimens/Packing Specimens Removed gallbladder JANELL CARRILLO MD Jul 30, 2018 14:12
[2018-07-30] MEDS ORDERED: HYDROmorphone 2 MG/ML VIAL (DILAUDID) IV ONE (14:45)
[2018-07-30] MEDS ORDERED: morphine INJ 10 MG/ML 1ML (SYR OR VIAL) IVP ONE (14:45)
[2018-07-30 15:40] VITALS: BP 114/66
--- NOTE | 2018-07-30 15:40 | NUR ---
TO AMB SURG FROM PAR PER CART. AWAKE ON RETURN TO ROOM AND C/O RUQ ABD PAIN, BUT QUICKLY BACK TO SLEEP. ON O2 AT 3L PER NC. DERMABOND INTACT TO X2 LAP ABD SITES (UMBILICAL AND RIGHT, MID ABD) AND LARGE BANDAID D/I OVER LEFT UPPER ABD SITE. ICE PACK REMOVED BY AND REFUSED BY PT. STATES "IT'S TO COLD." PO FLUIDS TO BEDSIDE.
[2018-07-30 16:15] VITALS: BP 119/75
--- NOTE | 2018-07-30 16:30 | NUR ---
HAS BEEN RESTING QUIETLY WITH EYES CLOSED, EVEN, UNLABORED RESPIRATIONS. NO CHANGE IN SITE ASSESSMENT. AWAKENS EASILY. MOVES SELF EASILY IN BED. TAKING PO FLUIDS AND CRACKERS.
[2018-07-30 17:00] VITALS: BP 110/68
--- NOTE | 2018-07-30 17:00 | NUR ---
HAS BEEN RESTING QUIETLY, AWAKE NOW AND ON CELL PHONE. CONTINUES TO REFUSE ICE PACK, STATING "IT DON'T HURT THAT BAD." O2 DC'D.
--- NOTE | 2018-07-30 17:30 | NUR ---
SAO2 96% ON ROOM AIR. DISCHARGE INSTRUCTIONS PROVIDED. MOVES SELF EASILY TO SIDE OF BED TO DRESS FOR HOME. NO CHANGE IN SITE ASSESSMENT.
[2018-07-30 17:40] VITALS: BP 118/70
--- NOTE | 2018-07-31 03:11 | OPERATIVE REPORT ---
DATE OF SERVICE: 07/30/2018 ATTENDING PRIMARY CARE PHYSICIAN: Jorge Interiano DO PREOPERATIVE DIAGNOSIS: Acute on chronic calculous cholecystitis. POSTOPERATIVE DIAGNOSIS: Acute on chronic calculous cholecystitis. PROCEDURE: Laparoscopic cholecystectomy. SURGEON: Janell Carrillo MD VIBRATION TECHNICIAN: Bean Galo APRN ANESTHESIA: General endotracheal. ESTIMATED BLOOD LOSS: Minimal. FINDINGS: Dilated gallbladder with moderate gallbladder wall thickening and one large solitary stone. DISPOSITION: The patient tolerated the procedure well. INDICATIONS: The patient is a 23-year-old female who presented to the Emergency Department early this morning with acute onset of right upper abdominal quadrant pain with radiation towards the back with associated nausea; however, no vomiting. She reports that the pain worsened in severity. She reports that she may have had some similar symptoms in the past before; however, not severe. An ultrasound was performed, which did show a large gallstone as well as gallbladder wall inflammation consistent with an acute on chronic calculous cholecystitis. DESCRIPTION OF PROCEDURE: The patient was brought to the operating room, laid supine on the table. After adequate IV pain and sedating medications and general endotracheal intubation, the abdomen was prepped and draped in standard surgical fashion. A 0.5% Marcaine with epinephrine was used to anesthetize the overlying skin and a left upper abdominal quadrant skin incision was made using a 15 blade. An 0 silk suture was applied to the medial aspect of the incision for retraction and a Veress needle inserted with low opening pressure of 0 mmHg and the abdomen was then insufflated to 15 mmHg pressure. The Veress needle removed and a 5 mm Xcel trocar placed followed by a 5 mm 45-degree angle laparoscope visualizing the peritoneal cavity. A 4-quadrant abdominal exploration was performed. There was a dilated gallbladder with moderate gallbladder wall thickening. What was visualized of the liver, omentum, small bowel, stomach appeared normal. Under direct visualization, we then proceed to place a supraumbilical 10 mm port after the skin and peritoneal lining were anesthetized using 0.5% Marcaine with epinephrine and a transverse skin incision made using a 15 blade. In a similar fashion, a right upper abdominal quadrant 5 mm port was placed. The patient was then placed in reverse Trendelenburg position as well as plane right side up, left side down. The fundus of the gallbladder was then retracted anteriorly and superiorly. The hepatoduodenal ligament was then opened using blunt dissection as well as electrocautery on the hook instrument. The entire critical view of safety was identified including the cystic duct and artery as the only two structures going into the gallbladder, the triangle of Calot as well as the cystic plate behind the proximal gallbladder. A timeout was then taken and the cystic duct and artery were then clipped proximally and distally and cut with EndoShears. Good hemostasis was observed. The gallbladder was then dissected off the liver bed using cautery on hook instrument with visualization of good hemostasis as well as no leaking ducts of Luschka. The gallbladder was removed through the 10 mm port site using an EndoCatch bag. A 10 mm port site fascia and peritoneum were then closed under direct visualization using a Leno-Kenyatta device and an 0 Vicryl suture. The abdomen was desufflated and the remaining ports removed. All skin incisions were closed using 4-0 Monocryl running subcuticular sutures. Wounds were then cleaned and covered with Dermabond. The patient tolerated the procedure well. We will start IV normal pain medication as well as a clear liquid diet. Once she is tolerating clears, has good pain control with oral pain medications, ambulating well, we will discharge her home. We will have followup in 2 weeks. Job ID: [id number] DocumentID: [id number] Dictated Date: 07/30/2018 14:18:39 Publications Designer Date: 07/31/2018 03:11:16 Dictated By: JANELL CARRILLO MD
== END 2018-07-30 17:40 | disposition home or self-care (01) ==
LOC: EDUNIT# 04:55 → ER 04:57 → SDC 08:40
PROVIDERS: ATTEND Surgery
DX: K80.12 Calculus of gallbladder with acute and chronic cholecystitis without obstruction (principal); F43.10 Post-traumatic stress disorder, unspecified; F32.9 Major depressive disorder, single episode, unspecified; F17.210 Nicotine dependence, cigarettes, uncomplicated; Z79.52 Long term (current) use of systemic steroids; Z11.2 Encounter for screening for other bacterial diseases
CPT/HCPCS: 36415; 76705; 80053; 81000; 83690; 84703; 85025; 87081; 94664

== ENCOUNTER 2018-08-17 15:13 | Emergency (ER) | payer MEDICAID ==
[~2018-08-17] VITALS: Ht 172.7 cm; Wt 108.9 kg
[~2018-08-17 15:13] MED LIST changes: +HYDR-34 PO
--- OUTSIDE RECORDS SUMMARY | 2018-08-17 15:22 | XMS REPORT | Continuity of Care Document ---
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 Ot F41.9 ANXIETY DISORDER, UNSPECIFIED 01/07/2018 MATILDE KASPERP Ot G47.9 SLEEP DISORDER, UNSPECIFIED 01/07/2018 MATILDE KASPER [employer] RENTAL SALES ASSISTANT Ot K62.89 OTHER SPECIFIED DISEASES OF ANUS AND REC 01/07/2018 MATILDE KASPERP Ot K64.9 UNSPECIFIED HEMORRHOIDS 01/09/2018 MATILDE KASPER [employer] RENTAL SALES ASSISTANT Ot F17.210 NICOTINE DEPENDENCE, CIGARETTES, UNCOMPL 01/09/2018 RANJITH MATILDE [employer] RENTAL SALES ASSISTANT Ot F32.9 MAJOR DEPRESSIVE DISORDER, SINGLE EPISOD 01/09/2018 RANJITH MATILDE CAR RENTAL SALES ASSISTANT Ot F41.9 ANXIETY DISORDER, UNSPECIFIED 01/09/2018 RANJITH, MATILDE CAR RENTAL SALES ASSISTANT Ot G47.9 SLEEP DISORDER, UNSPECIFIED 01/09/2018 RANJITH, MATILDE CAR RENTAL SALES ASSISTANT Ot K62.89 OTHER SPECIFIED DISEASES OF ANUS AND REC 01/09/2018 RANJITH, MATILDE CAR RENTAL SALES ASSISTANT Ot K64.9 UNSPECIFIED HEMORRHOIDS 01/13/2018 RANJITH, MATILDE CAR RENTAL SALES ASSISTANT Ot F17.210 NICOTINE DEPENDENCE, CIGARETTES, UNCOMPL 01/13/2018 RANJITH, MATILDE CAR RENTAL SALES ASSISTANT Ot F32.9 MAJOR DEPRESSIVE DISORDER, SINGLE EPISOD 01/13/2018 RANJITH, MATILDE CAR RENTAL SALES ASSISTANT Ot F41.9 ANXIETY DISORDER, UNSPECIFIED 01/13/2018 RANJITH, MATILDE CAR RENTAL SALES ASSISTANT Ot G47.9 SLEEP DISORDER, UNSPECIFIED 01/13/2018 RANJITH, MATILDE CAR RENTAL SALES ASSISTANT Ot K62.89 OTHER SPECIFIED DISEASES OF ANUS AND REC 01/13/2018 RANJITH, MATILDE CAR RENTAL SALES ASSISTANT Ot K64.9 UNSPECIFIED HEMORRHOIDS 04/04/2018 SHADY SALDIVAR, [...] R05 COUGH 04/17/2018 BERNOT, HUNG Ot Z79.52 LONGTERM (CURRENT) USE OF SYSTEMIC STER 04/19/2018 COURTNEYOT, HUNG Ot F17.210 NICOTINE DEPENDENCE, CIGARETTES, UNCOMPL 04/19/2018 ARIELLA HUNG Ot F32.9 MAJOR DEPRESSIVE DISORDER, SINGLE EPISOD 04/19/2018 BERNOT HUNG Ot F41.9 ANXIETY DISORDER, UNSPECIFIED 04/19/2018 BERNOT, HUNG Ot F43.10 POST-TRAUMATIC STRESS DISORDER, UNSPECIF 04/19/2018 BERNOT, HUNG Ot J06.9 ACUTE UPPER RESPIRATORY INFECTION, UNSPE 04/19/2018 BERNOT, HUNG Ot R05 COUGH 04/19/2018 BERNOT, HUNG Ot Z79.52 LONGTERM (CURRENT) USE OF SYSTEMIC STER 04/23/2018 BERNOT, HUNG Ot F17.210 NICOTINE DEPENDENCE, CIGARETTES, UNCOMPL 04/23/2018 ARIELLA HUNG Ot F32.9 MAJOR DEPRESSIVE DISORDER, SINGLE EPISOD 04/23/2018 BERNOT, HUNG Ot F41.9 ANXIETY DISORDER, UNSPECIFIED 04/23/2018 BERNOT, HUNG Ot F43.10 POST-TRAUMATIC STRESS DISORDER, UNSPECIF 04/23/2018 BERNOT HUNG Ot J06.9 ACUTE UPPER RESPIRATORY INFECTION, UNSPE 04/23/2018 BERNOT, HUNG Ot R05 COUGH 04/23/2018 BERNOT, HUNG Ot Z79.52 LONGTERM (CURRENT) USE OF SYSTEMIC STER 06/14/2018 SHADY SALDIVAR, CIPRIANO Garcia Ot F17.210 NICOTINE DEPENDENCE, CIGARETTES, UNCOMPL 06/14/2018 CIPRIANO CARUSO MD Ot F32.9 MAJOR DEPRESSIVE DISORDER, SINGLE EPISOD 06/14/2018 CIPRIANO CARUSO MD Ot F41.9 ANXIETY DISORDER, UNSPECIFIED 06/14/2018 CIPRIANO CARUSO MD Ot F43.10 POST-TRAUMATIC STRESS DISORDER, UNSPECIF 06/14/2018 CIPRIANO CARUSO MD Ot N94.6 DYSMENORRHEA, UNSPECIFIED 06/14/2018 CIPRIANO CARUSO MD Ot R10.2 PELVIC AND PERINEAL PAIN 06/14/2018 CIPRIANO CARUSO MD Ot Z79.52 LONGTERM (CURRENT) USE OF SYSTEMIC STER 07/30/2018 JANELL CARRILLO MD Ot F17.210 NICOTINE DEPENDENCE, CIGARETTES, UNCOMPL 07/30/2018 JANELL CARRILLO MD Ot F32.9 MAJOR DEPRESSIVE DISORDER, SINGLE EPISOD 07/30/2018 JANELL CARRILLO MD Ot F43.10 POST-TRAUMATIC STRESS DISORDER, UNSPECIF 07/30/2018 JANELL CARRILLO MD Ot K80.12 CALCULUS OF GB W ACUTE AND CHRONIC YELITZA 07/30/2018 JANELL CARRILLO MD Ot Z11.2 ENCOUNTER FOR SCREENING FOR OTHER BACTER 07/30/2018 JANELL CARRILLO MD Ot Z79.52 LONGTERM (CURRENT) USE OF SYSTEMIC STER 08/02/2018 JANELL CARRILLO MD Ot F17.210 NICOTINE DEPENDENCE, CIGARETTES, UNCOMPL 08/02/2018 JANELL CARRILLO MD Ot F32.9 MAJOR DEPRESSIVE DISORDER, SINGLE EPISOD 08/02/2018 JANELL CARRILLO MD Ot F43.10 POST-TRAUMATIC STRESS DISORDER, UNSPECIF 08/02/2018 JANELL CARRILLO MD Ot K80.12 CALCULUS OF GB W ACUTE AND CHRONIC YELITZA 08/02/2018 JANELL CARRILLO MD Ot Z11.2 ENCOUNTER FOR SCREENING FOR OTHER BACTER 08/02/2018 JANELL CARRILLO MD Ot 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 08/02/2018 JANELL CARRILLO MD Ot F17.210 NICOTINE DEPENDENCE, CIGARETTES, UNCOMPL 08/02/2018 JANELL CARRILLO MD Ot F32.9 MAJOR DEPRESSIVE DISORDER, SINGLE EPISOD 08/02/2018 JANELL CARRILLO MD, Ot F43.10 POST-TRAUMATIC STRESS DISORDER, UNSPECIF 08/02/2018 JANELL CARRILLO MD, Ot K80.12 CALCULUS OF GB W ACUTE AND CHRONIC YELITZA 08/02/2018 JANELL CARRILLO MD, Ot Z11.2 ENCOUNTER FOR SCREENING FOR OTHER BACTER 08/02/2018 JANELL CARRILLO MD, Ot 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 Procedures Code Description [place] [address] TEST, URINE (IN- HOUSE) 02/21/2014 [id number] STREP A (IN-HOUSE) 02/21/2014 [id number] TEST, URINE (IN- HOUSE) 04/02/2014 Results Test [...] urinalysis with reflex to culture NO NRG Complete urinalysis with reflex to culture - 07/30/18 05:45 Urine color determination YELLOW NRG Urine clarity determination VERY CLOUDY NRG Urine pH measurement by test strip 7 5-9 Specific gravity of urine by test strip 1.010 1.016- 1.022 Urine protein assay by test strip, semi-quantitative NEGATIVE NEGATIVE Urine glucose detection by automated test strip NEGATIVE NEGATIVE Erythrocytes detection in urine sediment by light microscopy NEGATIVE NEGATIVE Urine ketones detection by automated test strip NEGATIVE NEGATIVE Urine nitrite detection by test strip NEGATIVE NEGATIVE Urine total bilirubin detection by test strip NEGATIVE NEGATIVE Urine urobilinogen measurement by automated test strip (mass/volume) NORMAL NORMAL Urine leukocyte esterase detection by dipstick 1+ NEGATIVE Automated urine sediment erythrocyte count by microscopy (number/high power field) NONE NRG Automated urine sediment leukocyte count by microscopy (number/high power field ) RARE NRG Bacteria detection in urine sediment by light microscopy TRACE NRG Squamous epithelial cells detection in urine sediment by light microscopy RARE NRG Crystals detection in urine sediment by light microscopy PRESENT NRG Casts detection in urine sediment by light microscopy NONE NRG Mucus detection in urine sediment by light microscopy NEGATIVE NRG Complete urinalysis with reflex to culture NO NRG Amorphous sediment detection in urine sediment by light microscopy LARGE DAMON URATES NRG Complete blood count (CBC) with automated white blood cell (WBC) differential - 07/30/18 06:00 Blood leukocytes automated count (number/volume) 10.7 10*3/uL 4.3-11.0 Blood erythrocytes automated count (number/volume) 4.81 10*6/uL 4.35-5.85 Venous blood hemoglobin measurement (mass/volume) 13.7 g/dL 11.5-16.0 Blood hematocrit (volume fraction) 40 % 35-52 Automated erythrocyte mean corpuscular volume 84 [foz_us] 80-99 Automated erythrocyte mean corpuscular hemoglobin (mass per erythrocyte) 29 pg 25-34 Automated erythrocyte mean corpuscular hemoglobin concentration measurement ( mass/volume) 34 g/dL 32-36 Automated erythrocyte distribution width ratio 12.5 % 10.0-14.5 Automated blood platelet count (count/volume) 324 10*3/uL 130-400 Automated blood platelet mean volume measurement 10.4 [foz_us] 7.4-10.4 Automated blood neutrophils/100 leukocytes 60 % 42-75 Automated blood lymphocytes/100 leukocytes 29 % 12-44 Blood monocytes/100 leukocytes 9 % 0-12 Automated blood eosinophils/100 leukocytes 2 % 0-10 Automated blood basophils/100 leukocytes 0 % 0-10 Blood neutrophils automated count (number/volume) 6.4 10*3 1.8-7.8 Blood lymphocytes automated count (number/volume) 3.1 10*3 1.0-4.0 Blood monocytes automated count (number/volume) 0.9 10*3 0.0-1.0 Automated eosinophil count 0.2 10*3/uL 0.0-0.3 Automated blood basophil count (count/volume) 0.0 10*3/uL 0.0-0.1 Serum or plasma choriogonadotropin ( test) detection - 07/30/18 06:00 Serum or plasma choriogonadotropin ( test) detection NEGATIVE NEGATIVE Comprehensive metabolic panel - 07/30/18 06:00 Serum or plasma sodium measurement (moles/volume) 142 mmol/L 135-145 Serum or plasma potassium measurement (moles/volume) 4.0 mmol/L 3.6-5.0 Serum or plasma chloride measurement (moles/volume) 108 mmol/L 98-107 Carbon dioxide 22 mmol/L 21-32 Serum or plasma anion gap determination (moles/volume) 12 mmol/L 5-14 Serum or plasma urea nitrogen measurement (mass/volume) 12 mg/dL 7-18 Serum or plasma creatinine measurement (mass/volume) 0.82 mg/dL 0.60-1.30 Serum or plasma urea nitrogen/creatinine mass ratio 15 NRG Serum or plasma creatinine measurement with calculation of estimated glomerular filtration rate > NRG Serum or plasma glucose measurement (mass/volume) 116 mg/dL 70-105 Serum or plasma calcium measurement (mass/volume) 9.8 mg/dL 8.5-10.1 Serum or plasma total bilirubin measurement (mass/volume) 0.3 mg/dL 0.1-1.0 Serum or plasma alkaline phosphatase measurement (enzymatic activity/volume) 94 U/L 40-136 Serum or plasma aspartate aminotransferase measurement (enzymatic activity/ volume) 15 U/L 5-34 Serum or plasma alanine aminotransferase measurement (enzymatic activity/volume ) 14 U/L 0-55 Serum or plasma protein measurement (mass/volume) 7.2 g/dL 6.4-8.2 Serum or plasma albumin measurement (mass/volume) 4.5 g/dL 3.2-4.5 CALCIUM CORRECTED 9.4 mg/dL 8.5-10.1 Lipase - 07/30/18 06:00 Lipase 26 U/L 8-78 Methicillin resistant Staphylococcus aureus (MRSA) screening culture - 11:30 Methicillin resistant Staphylococcus aureus (MRSA) screening culture NEG NRG Encounters ACCT No. Visit Date/Time Discharge Status Pt. Type Provider Facility Loc./Unit Complaint [id number] 04/02/2014 14:24:00 04/02/2014 23:59:59 CLS Outpatient PAM KHAN APRN [id number] 02/21/2014 13:39:00 02/21/2014 23:59:59 CLS Outpatient ASHLEE WEATHERS APRN [id number] 07/30/2018 08:40:00 07/30/2018 17:40:00 DIS Outpatient JANELL CARRILLO MD [facility] CHOLELITRIASIS/ CHOLECYSTITIS [id number] 06/12/2018 22:41:00 06/13/2018 00:11:00 DIS Outpatient SHADY SALDIVAR, CIPRIANO Garcia [facility] PAIN IN UTERUS SHOOTING UP LOWER BACK [id number] 04/17/2018 10:06:00 04/17/2018 12:12:00 DIS Emergency BERNHUNG BAEZ [facility] COUGH/SOA [id number] 04/04/2018 03:18:00 04/04/2018 04:10:00 DIS Emergency CIPRIANO CARUSO MD [facility] PELVIC PAIN [id number] 01/07/2018 16:12:00 01/07/2018 17:40:00 DIS Emergency RANJITHMATILDE [employer] RENTAL SALES ASSISTANT [facility] RECTAL BLEEDING [id number] 01/22/2013 15:20:00 01/22/2013 23:59:59 CLS Outpatient [id number] 08/17/2018 15:15:00 ACT Emergency CHAYITO SALDIVAR, TIAGO Comer [facility] UPPER RESPIRATORY PROBLEMS [id number] 08/09/2018 13:40:00 08/09/2018 23:59:59 CLS Outpatient [facility]AR [facility] [id number] 06/19/2018 18:18:00 ACT Unknown
[2018-08-17] MEDS ORDERED: RT-ALBUTEROL/IPRATROPIUM 3 ML (DUONEB) VIAL INH ONE (15:30)
--- NOTE | 2018-08-17 15:36 | ED Respiratory ---
General Stated Complaint: UPPER RESPIRATORY PROBLEMS Source: patient, family Exam Limitations: no limitations History of Present Illness Date Seen by Provider: Aug 17, 2018 Time Seen by Provider: 15:31 Initial Comments This 23-year-old white female presents with a complaint of persistent cough despite nzlh-ris-gmmbdse medications. The patient has been seen recently in [facility]. Patient denies productive cough, fever, chills, headache, stiff neck, or photophobia. Similarly the patient denies associated nausea or vomiting. She' s had no associated diarrhea or dysuria. Allergies and Home Medications Allergies Coded Allergies: No Known Drug Allergies (Unverified , 03/15/09) Home Medications Azithromycin 250 Mg Tablet, 250 MG PO UD TAKE 2 TABLETS TODAY, THEN TAKE 1 TABLET DAILY FOR 4 MORE DAYS Prescribed by: HUNG KRISHNAN on 04/17/18 1120 Hydrocodone Bit/Acetaminophen 1 Ea Tablet, 1 EACH PO Q4H PRN for PAIN-MODERATE Prescribed by: JANELL CARRILLO on 07/30/18 1058 Hyoscyamine Sulfate 0.125 Mg Tab.subl, 0.125 MG SL Q4H PRN for CRAMPS Prescribed by: CIPRIANO VEGA on 06/13/18 0004 Prednisone 10 Mg Tab.ds.pk, 10 MG PO UD Prescribed by: HUNG KRISHNAN on 04/17/18 1120 Patient Home Medication List Home Medication List Reviewed: Yes Review of Systems Review of Systems Constitutional: No chills, No fever EENTM: No ear pain, No vision loss Respiratory: see HPI, cough Cardiovascular: No chest pain Gastrointestinal: No abdominal pain, No diarrhea, No nausea, No vomiting Genitourinary: no symptoms reported Musculoskeletal: No back pain Skin: No rash Psychiatric/Neurological: No Symptoms Reported Hematologic/Lymphatic: No Symptoms Reported Immunological/Allergic: no symptoms reported Past Azmmhhz-Nrkwsb-Qvhgem Hx Past Med/Social Hx: Reviewed Nursing Past Med/Soc Hx Patient Social History Drug of Choice: MARIJUANA-LATELY HAS BEEN DAILY USE Type Used: Cigarettes 2nd Hand Smoke Exposure: No Recent Hopitalizations: No Immunizations Up To Date Tetanus Booster (TDap): Unknown Seasonal Allergies Seasonal Allergies: No Past Medical History Surgeries: No Respiratory: No Cardiac: No Neurological: No Female Reproductive Disorders: Menstrual Problems Genitourinary: No Gastrointestinal: Yes (RECENT ONSET RUQ ABD PAIN) Musculoskeletal: No Endocrine: No HEENT: No Cancer: No Psychosocial: Yes Sleep Difficulties, Anxiety, PTSD, Depression Integumentary: No Blood Disorders: No Adverse Reaction/Blood Tranf: No Physical Exam Vital Signs - First Documented 08/17/18 15:56 Pulse Ox 95 O2 Delivery Room Air Capillary Refill : Height: 5'8.00" Weight: 239lbs. 0.0oz. 108.372976nx; 36.3 BMI Method:Stated General Appearance: WD/WN, no apparent distress Eyes: Bilateral Eye Normal Inspection HEENT: normal ENT inspection Neck: non-tender, full range of motion Respiratory: chest non-tender, lungs clear, normal breath sounds, no respiratory distress, no accessory muscle use Cardiovascular: normal peripheral pulses, regular rate, rhythm Gastrointestinal: normal bowel sounds, non tender, soft Extremities: normal range of motion, non-tender, normal inspection Neurologic/Psychiatric: no motor/sensory deficits, alert, oriented x 3 Skin: normal color, warm/dry; No rash Progress/Results/Core Measures Suspected Sepsis SIRS Temperature: Pulse: Respiratory Rate: Laboratory Tests 08/17/18 15:44: White Blood Count 11.0 Blood Pressure / Mean: Laboratory Tests 08/17/18 15:44: Platelet Count 385 Results/Orders Lab Results Laboratory Tests Test 08/17/18 15:44 Range/Units White Blood Count 11.0 4.3-11.0 10^3/uL Red Blood Count 4.63 4.35-5.85 10^6/uL Hemoglobin 13.3 11.5-16.0 G/DL Hematocrit 38 35-52 % Mean Corpuscular Volume 83 80-99 FL Mean Corpuscular Hemoglobin 29 25-34 PG Mean Corpuscular Hemoglobin Concent 35 32-36 G/DL Red Cell Distribution Width 12.2 10.0-14.5 % Platelet Count 385 130-400 10^3/uL Mean Platelet Volume 10.1 7.4-10.4 FL Neutrophils (%) (Auto) 68 42-75 % Lymphocytes (%) (Auto) 24 12-44 % Monocytes (%) (Auto) 7 0-12 % Eosinophils (%) (Auto) 2 0-10 % Basophils (%) (Auto) 0 0-10 % Neutrophils # (Auto) 7.5 1.8-7.8 X 10^3 Lymphocytes # (Auto) 2.6 1.0-4.0 X 10^3 Monocytes # (Auto) 0.8 0.0-1.0 X 10^3 Eosinophils # (Auto) 0.2 0.0-0.3 10^3/uL Basophils # (Auto) 0.0 0.0-0.1 10^3/uL My Orders Orders - TIAGO STRATTON MD Chest Pa/Lat (2 View) (08/17/18 15:30) Cbc With Automated Diff (08/17/18 15:30) Albuterol/Ipra Inhalation Soln (Duoneb I (08/17/18 15:30) Svn Small Volume Nebulizer (08/17/18 15:30) Urine Bedside (08/17/18 16:11) Medications Given in ED Current Medications Medications Dose Ordered Sig/Connor Route Start Time Stop Time Status Last Admin Dose Admin Albuterol/ Ipratropium 3 ml ONCE ONCE INH 08/17/18 15:30 08/17/18 15:31 DC 08/17/18 15:56 3 ML Vital Signs/I&O 08/17/18 15:56 Pulse Ox 95 O2 Delivery Room Air Capillary Refill : Progress Note : Time: 17:02 Progress Note The patient's CBC and chest x-ray were unremarkable. I discussed the presentation and findings with the family. They would very much like to employ an antibiotic and states that Zithromax has worked well for him in the past I prescribed a Z-Anil for the patient. I recommended close follow-up Dr. Camarena on Monday. I that they return if any further problems or questions. Departure Impression Primary Impression: Bronchitis Disposition: 01 HOME, SELF-CARE Condition: Improved Departure-Patient Inst. Decision time for Depature: 17:03 Referrals: JACKIE CAMARENA DO (PCP/Family) Primary Care Physician Patient Instructions: Acute Bronchitis, Adult (DC) Add. Discharge Instructions: Z-Anil as prescribed. Use your inhaler at home as needed. Follow-up Dr. Camarena Monday. Return if any problems or questions. TIAGO STRATTON MD Aug 17, 2018 15:36
[2018-08-17 15:52] LABS: BASOPHILS % (AUTO) 0 % (0-10); EOSINOPHILS # (AUTO) 0.2 10^3/uL (0.0-0.3); EOSINOPHILS % (AUTO) 2 % (0-10); HEMATOCRIT 38 % (35-52); HEMOGLOBIN 13.3 G/DL (11.5-16.0); LYMPHOCYTES # (AUTO) 2.6 X 10^3 (1.0-4.0); LYMPHOCYTES % (AUTO) 24 % (12-44); MEAN CORPUSCULAR HEMOGLOBIN 29 PG (25-34); MEAN CORPUSCULAR HGB CONC 35 G/DL (32-36); MEAN CORPUSCULAR VOLUME 83 FL (80-99); MEAN PLATELET VOLUME 10.1 FL (7.4-10.4); MONOCYTES # (AUTO) 0.8 X 10^3 (0.0-1.0); MONOCYTES % (AUTO) 7 % (0-12); NEUTROPHILS # (AUTO) 7.5 X 10^3 (1.8-7.8); NEUTROPHILS % (AUTO) 68 % (42-75); PLATELET COUNT 385 10^3/uL (130-400); RED BLOOD COUNT 4.63 10^6/uL (4.35-5.85); RED CELL DISTRIBUTION WIDTH 12.2 % (10.0-14.5)
--- NOTE | 2018-08-17 16:25 | Diagnostic Imaging Report ---
INDICATION: Respiratory infection. EXAMINATION: PA and lateral chest. FINDINGS: The heart size and pulmonary vascularity are normal. The lungs are clear. There are no effusions or pneumothoraces. IMPRESSION: Negative chest. Dictated by: Dictated on workstation # [id number]
[2018-08-17 17:08] VITALS: BP 111/71
== END 2018-08-17 17:08 | disposition home or self-care (01) ==
LOC: EDUNIT# 15:13 → ER 15:15
DX: J40 Bronchitis, not specified as acute or chronic (principal); F43.10 Post-traumatic stress disorder, unspecified; F41.9 Anxiety disorder, unspecified; F32.9 Major depressive disorder, single episode, unspecified; F12.10 Cannabis abuse, uncomplicated; Z79.52 Long term (current) use of systemic steroids
CPT/HCPCS: 36415; 71046; 84703; 85025; 94640

== ENCOUNTER 2018-09-20 11:14 | Emergency (ER) | payer MEDICAID ==
[~2018-09-20] VITALS: Ht 170.2 cm; Wt 108.9 kg
--- OUTSIDE RECORDS SUMMARY | 2018-09-20 11:30 | XMS REPORT | Continuity of Care Document ---
Author Author [facility] Address Unknown Phone Unavailable Allergies Active Description Code Type Severity Reaction Onset Reported/Identified Relationship to Patient Clinical Status Yes No Known Drug Allergies [id number] Drug Allergy Mild N/A 03/15/2009 Medications There [...] DEPRESSIVE DISORDER, SINGLE EPISOD 01/07/2018 MATILDE KASPER HARNESS FITTER Ot F41.9 ANXIETY DISORDER, UNSPECIFIED 01/07/2018 MATILDE KASPERP Ot G47.9 SLEEP DISORDER, UNSPECIFIED 01/07/2018 MATILDE KASPER HARNESS FITTER Ot K62.89 OTHER SPECIFIED DISEASES OF ANUS AND REC 01/07/2018 MATILDE KASPERP Ot K64.9 UNSPECIFIED HEMORRHOIDS 01/09/2018 MATILDE KASPER HARNESS FITTER Ot F17.210 NICOTINE DEPENDENCE, CIGARETTES, UNCOMPL 01/09/2018 RANJITH MATILDE HARNESS FITTER Ot F32.9 MAJOR DEPRESSIVE DISORDER, SINGLE EPISOD 01/09/2018 RANJITH MATILDE HARNESS FITTER Ot F41.9 ANXIETY DISORDER, UNSPECIFIED 01/09/2018 RANJITH, MATILDE HARNESS FITTER Ot G47.9 SLEEP DISORDER, UNSPECIFIED 01/09/2018 RANJITH, MATILDE HARNESS FITTER Ot K62.89 OTHER SPECIFIED DISEASES OF ANUS AND REC 01/09/2018 RANJITH, MATILDE HARNESS FITTER Ot K64.9 UNSPECIFIED HEMORRHOIDS 01/13/2018 RANJITH, MATILDE HARNESS FITTER Ot F17.210 NICOTINE DEPENDENCE, CIGARETTES, UNCOMPL 01/13/2018 RANJIHT, MATILDE HARNESS FITTER Ot F32.9 MAJOR DEPRESSIVE DISORDER, SINGLE EPISOD 01/13/2018 RANJITH, MATILDE HARNESS FITTER Ot F41.9 ANXIETY DISORDER, UNSPECIFIED 01/13/2018 RANJITH, MATILDE HARNESS FITTER Ot G47.9 SLEEP DISORDER, UNSPECIFIED 01/13/2018 RANJITH, MATILDE HARNESS FITTER Ot K62.89 OTHER SPECIFIED DISEASES OF ANUS AND REC 01/13/2018 RANJITH, MATILDE HARNESS FITTER Ot K64.9 UNSPECIFIED HEMORRHOIDS 04/04/2018 SHADY SALDIVAR, [...] R05 COUGH 04/17/2018 BERNOT, HUNG Ot Z79.52 HALF-WAY (CURRENT) USE OF SYSTEMIC STER 04/19/2018 COURTNEYOT, HUNG Ot F17.210 NICOTINE DEPENDENCE, CIGARETTES, UNCOMPL 04/19/2018 ARIELLA HUNG Ot F32.9 MAJOR DEPRESSIVE DISORDER, SINGLE EPISOD 04/19/2018 BERNOT HUNG Ot F41.9 ANXIETY DISORDER, UNSPECIFIED 04/19/2018 BERNOT, HUNG Ot F43.10 POST-TRAUMATIC STRESS DISORDER, UNSPECIF 04/19/2018 BERNOT, HUNG Ot J06.9 ACUTE UPPER RESPIRATORY INFECTION, UNSPE 04/19/2018 BERNOT, HUNG Ot R05 COUGH 04/19/2018 BERNOT, HUNG Ot Z79.52 HALF-WAY (CURRENT) USE OF SYSTEMIC STER 04/23/2018 BERNOT, HUNG Ot F17.210 NICOTINE DEPENDENCE, CIGARETTES, UNCOMPL 04/23/2018 ARIELLA HUNG Ot F32.9 MAJOR DEPRESSIVE DISORDER, SINGLE EPISOD 04/23/2018 BERNOT, HUNG Ot F41.9 ANXIETY DISORDER, UNSPECIFIED 04/23/2018 BERNOT, HUNG Ot F43.10 POST-TRAUMATIC STRESS DISORDER, UNSPECIF 04/23/2018 BERNOT HUNG Ot J06.9 ACUTE UPPER RESPIRATORY INFECTION, UNSPE 04/23/2018 BERNOT, HUNG Ot R05 COUGH 04/23/2018 BERNOT, HUNG Ot Z79.52 HALF-WAY (CURRENT) USE OF SYSTEMIC STER 06/13/2018 SHADY SALDIVAR, CIPRIANO Garcia Ot F17.210 NICOTINE DEPENDENCE, CIGARETTES, UNCOMPL 06/13/2018 CIPRIANO CARUSO MD Ot F32.9 MAJOR DEPRESSIVE DISORDER, SINGLE EPISOD 06/13/2018 CIPRIANO CARUSO MD Ot F41.9 ANXIETY DISORDER, UNSPECIFIED 06/13/2018 CIPRIANO CARUSO MD Ot F43.10 POST-TRAUMATIC STRESS DISORDER, UNSPECIF 06/13/2018 CIPRIANO CARUSO MD T Ot N94.6 DYSMENORRHEA, UNSPECIFIED 06/13/2018 CIPRIANO CARUSO MD T Ot R10.2 PELVIC AND PERINEAL PAIN 06/13/2018 CIPRIANO CARUSO MD Ot Z79.52 HALF-WAY (CURRENT) USE OF SYSTEMIC STER 06/14/2018 CIPRIANO CARUSO MD Ot F17.210 NICOTINE DEPENDENCE, CIGARETTES, UNCOMPL 06/14/2018 CIPRIANO CARUSO MD Ot F32.9 MAJOR DEPRESSIVE DISORDER, SINGLE EPISOD 06/14/2018 CIPRIANO CARUSO MD Ot F41.9 ANXIETY DISORDER, UNSPECIFIED 06/14/2018 CIPRIANO CARUSO MD Ot F43.10 POST-TRAUMATIC STRESS DISORDER, UNSPECIF 06/14/2018 CIPRIANO CARUSO MD Ot N94.6 DYSMENORRHEA, UNSPECIFIED 06/14/2018 CIPRIANO CARUSO MD Ot R10.2 PELVIC AND PERINEAL PAIN 06/14/2018 CIPRIANO CARUSO MD Ot 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.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 OF SYSTEMIC STER 07/30/2018 JANELL [...] SCREENING FOR OTHER BACTER 07/30/2018 JANELL CARRILLO MD, Ot 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.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 OF SYSTEMIC STER 08/02/2018 JANELL [...] BACTER 08/02/2018 JANELL CARRILLO MD Ot Z79.52 HALF-WAY (CURRENT) USE OF SYSTEMIC STER 08/02/2018 JANELL [...] BACTER 08/02/2018 JANELL CARRILLO MD Ot Z79.52 HALF-WAY (CURRENT) USE OF SYSTEMIC STER 08/20/2018 TIAGO STRATTON MD Ot F12.10 CANNABIS ABUSE, UNCOMPLICATED 08/20/2018 TIAGO STRATTON MD Ot F32.9 MAJOR DEPRESSIVE DISORDER, SINGLE EPISOD 08/20/2018 TIAGO STRATTON MD Ot F41.9 ANXIETY DISORDER, UNSPECIFIED 08/20/2018 TIAGO STRATTON MD Ot F43.10 POST-TRAUMATIC STRESS DISORDER, UNSPECIF 08/20/2018 TIAGO STRATTON MD Ot J40 BRONCHITIS, NOT SPECIFIED ACUTE OR CH 08/20/2018 TIAGO STRATTON MD Ot R05 COUGH 08/20/2018 TIAGO STRATTON MD Ot Z79.52 HALF-WAY (CURRENT) USE OF SYSTEMIC STER 08/23/2018 TIAGO STRATTON MD Ot F12.10 CANNABIS ABUSE, UNCOMPLICATED 08/23/2018 TIAGO STRATTON MD Ot F32.9 MAJOR DEPRESSIVE DISORDER, SINGLE EPISOD 08/23/2018 TIAGO STRATTON MD Ot F41.9 ANXIETY DISORDER, UNSPECIFIED 08/23/2018 TIAGO STRATTON MD Ot F43.10 POST-TRAUMATIC STRESS DISORDER, UNSPECIF 08/23/2018 TIAGO STRATTON MD Ot J40 BRONCHITIS, NOT SPECIFIED ACUTE OR CH 08/23/2018 TIAGO STRATTON MD Ot R05 COUGH 08/23/2018 CHAYITO SALDIVAR TIAGO Nahomi Ot Z79.52 HALF-WAY (CURRENT) USE OF SYSTEMIC STER Procedures Code Description [place] [address] TEST, URINE (IN- HOUSE) 02/21/2014 23512 STREP A (IN-HOUSE) 02/21/2014 22056 TEST, URINE (IN- HOUSE) 04/02/2014 Results Test [...] Staphylococcus aureus (MRSA) screening culture NEG NRG Complete blood count (CBC) with automated white blood cell (WBC) differential - 08/17/18 15:44 Blood leukocytes automated count (number/volume) 11.0 10*3/uL 4.3-11.0 Blood erythrocytes automated count (number/volume) 4.63 10*6/uL 4.35-5.85 Venous blood hemoglobin measurement (mass/volume) 13.3 g/dL 11.5-16.0 Blood hematocrit (volume fraction) 38 % 35-52 Automated erythrocyte mean corpuscular volume 83 [foz_us] 80-99 Automated erythrocyte mean corpuscular hemoglobin (mass per erythrocyte) 29 pg 25-34 Automated erythrocyte mean corpuscular hemoglobin concentration measurement ( mass/volume) 35 g/dL 32-36 Automated erythrocyte distribution width ratio 12.2 % 10.0-14.5 Automated blood platelet count (count/volume) 385 10*3/uL 130-400 Automated blood platelet mean volume measurement 10.1 [foz_us] 7.4-10.4 Automated blood neutrophils/100 leukocytes 68 % 42-75 Automated blood lymphocytes/100 leukocytes 24 % 12-44 Blood monocytes/100 leukocytes 7 % 0-12 Automated blood eosinophils/100 leukocytes 2 % 0-10 Automated blood basophils/100 leukocytes 0 % 0-10 Blood neutrophils automated count (number/volume) 7.5 10*3 1.8-7.8 Blood lymphocytes automated count (number/volume) 2.6 10*3 1.0-4.0 Blood monocytes automated count (number/volume) 0.8 10*3 0.0-1.0 Automated eosinophil count 0.2 10*3/uL 0.0-0.3 Automated blood basophil count (count/volume) 0.0 10*3/uL 0.0-0.1 Encounters ACCT No. Visit Date/Time Discharge Status Pt. Type Provider Facility Loc./Unit Complaint [id number] 04/02/2014 14:24:00 04/02/2014 23:59:59 [facility] Outpatient PAM KHAN APRN [id number] 02/21/2014 13:39:00 02/21/2014 23:59:59 [facility] Outpatient ASHLEE WEATHERS APRN [id number] 08/17/2018 15:15:00 08/17/2018 17:08:00 DIS Outpatient CHAYITO SALDIVAR, TIAGO Comer [facility] ER UPPER RESPIRATORY PROBLEMS [id number] 07/30/2018 08:40:00 07/30/2018 17:40:00 DIS Outpatient GERARDO SALDIVAR, JANELL [facility] CHOLELITRIASIS/ CHOLECYSTITIS [id number] 06/12/2018 22:41:00 06/13/2018 00:11:00 DIS Emergency SHADY SALDIVAR, CIPRIANO Garcia [facility] ER PAIN IN UTERUS SHOOTING UP LOWER BACK [id number] 04/17/2018 10:06:00 04/17/2018 12:12:00 DIS Emergency HUNG KRISHNAN [facility] ER COUGH/SOA [id number] 04/04/2018 03:18:00 04/04/2018 04:10:00 DIS Emergency SHADY SALDIVAR, CIPRIANO Garcia [facility] ER PELVIC PAIN [id number] 01/07/2018 16:12:00 01/07/2018 17:40:00 DIS Emergency MATILDE KASPER [facility] ER RECTAL BLEEDING [id number] 01/22/2013 15:20:00 01/22/2013 23:59:59 CLS Outpatient [id number] 08/20/2018 13:20:00 08/20/2018 23:59:59 CLS Outpatient VALENTINO BALWINDER [facility] [id number] 06/19/2018 18:18:00 ACT Unknown
[2018-09-20] MEDS ORDERED: PRAZOSIN (11:33)
[2018-09-20] MEDS ORDERED: D-ME118S33 PO (11:43)
--- NOTE | 2018-09-20 11:44 | ED Cough/URI ---
General Chief Complaint: Cough/Cold/Flu Symptoms Stated Complaint: THROAT PAIN;COUGH Nursing Triage Note: ARRIVED VIA AMB TO TRIAGE. COMPLAINS OF COUGH AND SORE THROAT. ALSO WORRIED ABOUT HER DRY NOSE AND OCCASIONAL NOSE BLEED. STATES OTHER MEMBERS OF HER FAMILY HAVE BEEN DX WITH A URI. Sepsis Screen: No Definite Risk Source: patient Exam Limitations: no limitations History of Present Illness Date Seen by Provider: Sep 20, 2018 Time Seen by Provider: 11:40 Initial Comments To ER with a three-day history of cough and sore throat as well as nasal congestion. No fevers. Timing/Duration: constant Severity/Quality: productive cough Prior Episodes/Possible Cause: no prior episodes Associated Symptoms: nasal congestion, nasal drainage, sore throat Allergies and Home Medications Allergies Coded Allergies: No Known Drug Allergies (Unverified , 03/15/09) Patient Home Medication List Home Medication List Reviewed: Yes Review of Systems Review of Systems Constitutional: see HPI EENTM: see HPI Respiratory: see HPI, cough Cardiovascular: no symptoms reported Genitourinary: no symptoms reported Musculoskeletal: no symptoms reported Skin: no symptoms reported Psychiatric/Neurological: No Symptoms Reported Hematologic/Lymphatic: No Symptoms Reported Immunological/Allergic: no symptoms reported Past Xsoqfks-Mkipqj-Dyasop Hx Patient Social History Alcohol Use: Occasionally Uses Recreational Drug Use: Yes Drug of Choice: POT Smoking Status: Current Everyday Smoker Type Used: Cigarettes 2nd Hand Smoke Exposure: No Recent Foreign Travel: No Contact w/Someone Who Travel: No Recent Infectious Disease Expo: No Recent Hopitalizations: No Immunizations Up To Date Tetanus Booster (TDap): Unknown Seasonal Allergies Seasonal Allergies: No Past Medical History Surgeries: No Respiratory: No Cardiac: No Neurological: No Female Reproductive Disorders: Menstrual Problems Genitourinary: No Gastrointestinal: Yes (RECENT ONSET RUQ ABD PAIN) Musculoskeletal: No Endocrine: No HEENT: No Cancer: No Psychosocial: Yes Sleep Difficulties, Anxiety, PTSD, Depression Integumentary: No Blood Disorders: No Adverse Reaction/Blood Tranf: No Physical Exam Vital Signs - First Documented 09/20/18 11:18 Temp 98.6 Pulse 90 Resp 16 B/P (MAP) 102/69 (80) Pulse Ox 96 O2 Delivery Room Air Capillary Refill : Less Than 3 Seconds Height: 5'7.00" Weight: 240lbs. 0.0oz. 108.108298pp; 36.3 BMI Method:Stated General Appearance: WD/WN, no apparent distress Eyes: Bilateral Eye Normal Inspection HEENT: PERRL/EOMI, normal ENT inspection Respiratory: no respiratory distress, no accessory muscle use Cardiovascular: regular rate, rhythm, no murmur Gastrointestinal: normal bowel sounds, non tender, soft Neurologic/Psychiatric: alert, normal mood/affect, oriented x 3 Skin: normal color, warm/dry Progress/Results/Core Measures Suspected Sepsis Recent Fever Within 48 Hours: No Infection Criteria Present: Suspected New Infection New/Unexplained Altered Menta: No Sepsis Screen: No Definite Risk SIRS Temperature:98.6 Pulse: 90 Respiratory Rate: 16 Blood Pressure 102 /69 Mean: 80 Results/Orders Lab Results Laboratory Tests Test 09/20/18 11:25 Range/Units My Orders Orders - KAYLA JACOBO APRN Influenza A And B Antigens (09/20/18 11:19) Rapid Strep A Screen (09/20/18 11:19) Vital Signs/I&O 09/20/18 11:18 Temp 98.6 Pulse 90 Resp 16 B/P (MAP) 102/69 (80) Pulse Ox 96 O2 Delivery Room Air Capillary Refill : Less Than 3 Seconds Blood Pressure Mean: 80 Departure Impression Primary Impression: Viral syndrome Disposition: 01 HOME, SELF-CARE Condition: Stable Departure-Patient Inst. Decision time for Depature: 11:43 Referrals: JACKIE CAMARENA DO (PCP/Family) Primary Care Physician Patient Instructions: Cough, Runny Nose, and the Common Cold (DC) Add. Discharge Instructions: 1. Tylenol and Motrin 2. Plenty of fluids 3. Follow-up with your doctor next week All discharge instructions reviewed with patient and/or family. Voiced understanding. Scripts D-Methorphan Hb/P-Epd HCl/Bpm (Bromfed Dm Cough Syrup) 118 Ml Syrup 5 ML PO Q4H PRN for CONGESTION, #120 ML Prov: KAYLA JACOBO APRN 09/20/18 Work/School Note: Work Release Form Date Seen in the Emergency Department: Sep 20, 2018 Return to Work: Sep 22, 2018 KAYLA JACOBO APRN Sep 20, 2018 11:44
[2018-09-20 12:15] VITALS: BP 102/69
[2018-09-20] MEDS ORDERED: DEXAMETHASONE 10 MG/ML (DECADRON) 1 ML VIAL IM ONE (12:15)
== END 2018-09-20 12:15 | disposition home or self-care (01) ==
LOC: EDUNIT# 11:14 → ER 11:15
DX: B34.9 Viral infection, unspecified (principal); F41.9 Anxiety disorder, unspecified; F43.10 Post-traumatic stress disorder, unspecified; F32.9 Major depressive disorder, single episode, unspecified; F12.10 Cannabis abuse, uncomplicated; F17.210 Nicotine dependence, cigarettes, uncomplicated
CPT/HCPCS: 87430; 87804; 96372